=== PATIENT | male | born 2000 | race Two or more races ===

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

== ENCOUNTER → 2020-04-19 | Outpatient (CLI) | payer OTHER | END | disposition home or self-care (01) | LOC: LABWHC1 12:42 | PROVIDERS: ATTEND Family Medicine | DX: R05 Cough (principal); R06.02 Shortness of breath | CPT/HCPCS: U0003; C9803 ==

== ENCOUNTER → 2020-05-16 | Outpatient (CLI) | payer OTHER | END | disposition home or self-care (01) | LOC: LABWHC1 13:14 | PROVIDERS: ATTEND Clinical Nurse Specialist Psychiatric/Mental Health | DX: F31.12 Bipolar disorder, current episode manic without psychotic features, moderate (principal) | CPT/HCPCS: 36415; 80164 ==

== ENCOUNTER 2020-12-16 18:16 | Inpatient (IN) | payer OTHER ==
[2020-12-16] MEDS ORDERED: SODIUM CHLORIDE 0.9% 500 ML 500 ML IV ONE (18:32)
[2020-12-16] MEDS ORDERED: ACETAMINOPHEN TAB 500 MG TAB PO STA (18:32)
[2020-12-16] MEDS: IBUPROFEN 800 MG TAB PO STA ×2 (18:43→18:52)
--- NOTE | 2020-12-16 18:43 | ED ---
Altered Mental Status HPI - General Chief Complaint: Altered Mental Status Stated Complaint: AMS Time Seen by Provider: 12/16/20 18:20 Source: patient, RN notes reviewed Mode of arrival: EMS Limitations: no limitations - History of Present Illness Initial Comments: 20-year-old male patient presents to the emergency room via EMS. Patient had driven himself to his primary care doctor's office to get Covid test for fever and was found to be confused with altered mentation and a fever of 105. EMS was called. Patient states that he does live at home but then starts to talking about horses running around. Patient states he has ADHD and starts talking about Obama. Patient with flight of ideas, but does follow commands. Patient denies any pain, denies head injury. Patient morbidly obese able to move all extremities. Past medical history of bipolar, ADHD, high risk sexual behavior on truvada, asthma. MD Complaint: altered mental status Associated Symptoms: other (Patient very confused and not answering questions appropriately) Treatments Prior to Arrival: IV fluid - Related Data Home Medications Medication Instructions Recorded Confirmed Albuterol Sulfate [Proair Hfa] 1 - 2 puff INHALATION RT-Q4H PRN 12/16/20 12/16/20 Emtricitabine/Tenofovir (Tdf) 1 tab PO DAILY 12/16/20 12/16/20 [Truvada 200 mg-300 mg Tablet] Allergies Allergy/AdvReac Type Severity Reaction Status Date / Time No Known Allergies Allergy Verified 12/16/20 18:32 Review of Systems ROS Statement: Those systems with pertinent positive or pertinent negative responses have been documented in the HPI. ROS Other: All systems not noted in ROS Statement are negative. Past Medical History Past Medical History: No Reported History Past Surgical History: No Surgical Hx Reported Past Psychological History: ADD/ADHD, Bipolar Smoking Status: Current every day smoker Past Alcohol Use History: None Reported Past Drug Use History: Marijuana General Exam Limitations: no limitations, altered mental status General appearance: alert, obese Head exam: Present: atraumatic, normocephalic, normal inspection Eye exam: Present: normal appearance (glasses), PERRL, EOMI. Absent: scleral icterus, conjunctival injection, periorbital swelling ENT exam: Present: normal exam, mucous membranes dry Neck exam: Present: normal inspection, full ROM. Absent: tenderness, meningismus, lymphadenopathy, thyromegaly Respiratory exam: Present: wheezes, decreased breath sounds (Likely due to body habitus). Absent: respiratory distress, chest wall tenderness, accessory muscle use Cardiovascular Exam: Present: tachycardia. Absent: JVD GI/Abdominal exam: Present: soft, normal bowel sounds. Absent: distended, tenderness, guarding, rebound, rigid Extremities exam: Present: normal inspection, full ROM, normal capillary refill. Absent: tenderness, pedal edema, joint swelling, calf tenderness Back exam: Present: normal inspection. Absent: tenderness, CVA tenderness (R), CVA tenderness (L) Neurological exam: Present: alert, CN II-XII intact, other Psychiatric exam: Present: manic Skin exam: Present: warm, dry, intact, normal color. Absent: rash, cyanosis, diaphoretic, erythema, petechiae, pallor, mottled Course Vital Signs 12/16/20 12/16/20 12/16/20 18:23 19:40 20:21 Temperature 105.2 F H 101.2 F H 98.8 F Pulse Rate 134 H 121 H Respiratory 34 H 18 Rate Blood Pressure 102/87 113/64 O2 Sat by Pulse 96 Oximetry 12/16/20 12/16/20 20:58 22:11 Temperature 98.6 F Pulse Rate 107 H 102 H Respiratory 18 18 Rate Blood Pressure 99/66 100/54 O2 Sat by Pulse 96 95 Oximetry - Reevaluation(s) Reevaluation #1: 12/16/20 19:06 Patient still talking with tangential thoughts, and has question he will answer sometimes inappropriately patient able to provide his phone number and address and has tangential thinking sister starting about horses. IV established blood cultures drawn blood glucose 97. [facility] [place] reviewed showing patient has a history of major depression, bipolar disorder, asthma, morbid obesity, and high risks bisexual behavior. Patient on medications of her past pain, trazodone, and they have, Truvada, Tegretol, and albuterol. It appears per medical record that patient arrived at that facility with an exposure to COVID-19, fever and cough. On December 12 patient was seen at the same facility for bipolar disorder. Time: 19:06 Reevaluation #2: 12/16/20 19:32 Patient continues to talk to himself in room, not making any sense. Heart rate down to 128, cooling measures are in place, cool packs to groin and bilateral axillas. Time: 19:32 Reevaluation #3: 12/16/20 19:42 temp down to 101.2, pH continues to talk inappropriately "you 1977 marco a mendieta" Reevaluation #4: 12/16/20 20:32 Patient's temp down to 94. States that his symptoms started December 12. Explained to patient that we would give him monoclonal antibodies, patient states "your going to cure me of Covid?" Explained it may help his symptoms. Then patient became tearful asking if they are going to stab him. Christie CARRASQUILLO spoke with patient's father who states the patient has been having increasing psychosis and they've been trying to get him into [facility] and have been unsuccessful. States that his psychotic symptoms have been worsening. Medical Decision Making - Medical Decision Making Blood cell count 3, lymphocytes 0.7, lactic acid 1.2, hemoglobin and hematocrit are 12 and 34 respectively. Elevation in AST 140 and ALT 66 elevation noted in the past. Patient is Covid positive. Chest x-ray shows bilateral perihilar infiltrates. Temperature is down to 98.4. Patient will receive monoclonal antibodies and be observed to Dr. braun with psychiatric consult for acute psychosis. ED FOREIGN Castro spoke with patient's father who states that patient has been having increased psychosis and they're trying to get him admitted to [facility]. - Lab Data Result diagrams: 12/16/20 18:37 12/16/20 18:37 Lab Results 12/16/20 12/16/20 12/16/20 Range/Units 18:37 18:37 18:37 WBC 3.0 L (3.8-10.6) k/uL RBC 4.15 L (4.30-5.90) m/uL Hgb 12.3 L (13.0-17.5) gm/dL Hct 34.6 L (39.0-53.0) % MCV 83.5 (80.0-100.0) fL MCH 29.7 (25.0-35.0) pg MCHC 35.5 (31.0-37.0) g/dL RDW 13.9 (11.5-15.5) % Plt Count 127 L (150-450) k/uL MPV 7.6 Neutrophils % 71 % Lymphocytes % 23 % Monocytes % 4 % Eosinophils % 1 % Basophils % 0 % Neutrophils # 2.1 (1.3-7.7) k/uL Lymphocytes # 0.7 L (1.0-4.8) k/uL Monocytes # 0.1 (0-1.0) k/uL Eosinophils # 0.0 (0-0.7) k/uL Basophils # 0.0 (0-0.2) k/uL PT 11.4 (9.0-12.0) sec INR 1.1 (<1.2) APTT 24.0 (22.0-30.0) sec Sodium 132 L (137-145) mmol/L Potassium 3.4 L (3.5-5.1) mmol/L Chloride 100 (98-107) mmol/L Carbon Dioxide 24 (22-30) mmol/L Anion Gap 8 mmol/L BUN 10 (9-20) mg/dL Creatinine 0.69 (0.66-1.25) mg/dL Est GFR (CKD-EPI)AfAm >90 (>60 ml/min/1.73 sqM) Est GFR (CKD-EPI)NonAf >90 (>60 ml/min/1.73 sqM) Glucose 97 (74-99) mg/dL POC Glucose (mg/dL) (75-99) mg/dL POC Glu Pizza Baker ID Plasma Lactic Acid Dao (0.7-2.0) mmol/L Calcium 7.6 L (8.4-10.2) mg/dL Total Bilirubin 0.7 (0.2-1.3) mg/dL AST 140 H (17-59) U/L ALT 66 H (4-49) U/L Alkaline Phosphatase 59 (38-126) U/L Creatine Kinase (55-170) U/L Troponin I (0.000-0.034) ng/mL Total Protein 5.8 L (6.3-8.2) g/dL Albumin 3.3 L (3.5-5.0) g/dL Carbamazepine ug/mL Influenza Type A (PCR) (Not Detectd) Influenza Type B (PCR) (Not Detectd) RSV (PCR) (Not Detectd) SARS-CoV-2 (PCR) (Not Detectd) 12/16/20 12/16/2012/16/21 Range/Units 18:37 18:45 19:01 WBC (3.8-10.6) k/uL RBC (4.30-5.90) m/uL Hgb (13.0-17.5) gm/dL Hct (39.0-53.0) % MCV (80.0-100.0) fL MCH (25.0-35.0) pg MCHC (31.0-37.0) g/dL RDW (11.5-15.5) % Plt Count (150-450) k/uL MPV Neutrophils % % Lymphocytes % % Monocytes % % Eosinophils % % Basophils % % Neutrophils # (1.3-7.7) k/uL Lymphocytes # (1.0-4.8) k/uL Monocytes # (0-1.0) k/uL Eosinophils # (0-0.7) k/uL Basophils # (0-0.2) k/uL PT (9.0-12.0) sec INR (<1.2) APTT (22.0-30.0) sec Sodium (137-145) mmol/L Potassium (3.5-5.1) mmol/L Chloride (98-107) mmol/L Carbon Dioxide (22-30) mmol/L Anion Gap mmol/L BUN (9-20) mg/dL Creatinine (0.66-1.25) mg/dL Est GFR (CKD-EPI)AfAm (>60 ml/min/1.73 sqM) Est GFR (CKD-EPI)NonAf (>60 ml/min/1.73 sqM) Glucose (74-99) mg/dL POC Glucose (mg/dL) 97 (75-99) mg/dL POC Glu Pizza Baker ID Engel Britni Plasma Lactic Acid Dao 1.2 (0.7-2.0) mmol/L Calcium (8.4-10.2) mg/dL Total Bilirubin (0.2-1.3) mg/dL AST (17-59) U/L ALT (4-49) U/L Alkaline Phosphatase (38-126) U/L Creatine Kinase (55-170) U/L Troponin I <0.012 (0.000-0.034) ng/mL Total Protein (6.3-8.2) g/dL Albumin (3.5-5.0) g/dL Carbamazepine ug/mL Influenza Type A (PCR) (Not Detectd) Influenza Type B (PCR) (Not Detectd) RSV (PCR) (Not Detectd) SARS-CoV-2 (PCR) (Not Detectd) 12/16/20 12/16/20 Range/Units 19:04 19:34 WBC (3.8-10.6) k/uL RBC (4.30-5.90) m/uL Hgb (13.0-17.5) gm/dL Hct (39.0-53.0) % MCV (80.0-100.0) fL MCH (25.0-35.0) pg MCHC (31.0-37.0) g/dL RDW (11.5-15.5) % Plt Count (150-450) k/uL MPV Neutrophils % % Lymphocytes % % Monocytes % % Eosinophils % % Basophils % % Neutrophils # (1.3-7.7) k/uL Lymphocytes # (1.0-4.8) k/uL Monocytes # (0-1.0) k/uL Eosinophils # (0-0.7) k/uL Basophils # (0-0.2) k/uL PT (9.0-12.0) sec INR (<1.2) APTT (22.0-30.0) sec Sodium (137-145) mmol/L Potassium (3.5-5.1) mmol/L Chloride (98-107) mmol/L Carbon Dioxide (22-30) mmol/L Anion Gap mmol/L BUN (9-20) mg/dL Creatinine (0.66-1.25) mg/dL Est GFR (CKD-EPI)AfAm (>60 ml/min/1.73 sqM) Est GFR (CKD-EPI)NonAf (>60 ml/min/1.73 sqM) Glucose (74-99) mg/dL POC Glucose (mg/dL) (75-99) mg/dL POC Glu Pizza Baker ID Plasma Lactic Acid Dao (0.7-2.0) mmol/L Calcium (8.4-10.2) mg/dL Total Bilirubin (0.2-1.3) mg/dL AST (17-59) U/L ALT (4-49) U/L Alkaline Phosphatase (38-126) U/L Creatine Kinase (55-170) U/L Troponin I (0.000-0.034) ng/mL Total Protein (6.3-8.2) g/dL Albumin (3.5-5.0) g/dL Carbamazepine 10.2 ug/mL Influenza Type A (PCR) Not Detected (Not Detectd) Influenza Type B (PCR) Not Detected (Not Detectd) RSV (PCR) Not Detected (Not Detectd) SARS-CoV-2 (PCR) Detected A (Not Detectd) - EKG Data EKG shows normal: sinus rhythm, intervals (Ventricular rate of 128, CO interval 0.15, QRS of 0.84, QTC 0.414) Rate: tachycardia When compared to previous EKG there are: previous EKG unavailable Critical Care Time Critical Care Time: Yes Disposition Clinical Impression: COVID-19 Disposition: ADMITTED IP TO THIS [facility] Condition: Fair Is patient prescribed a controlled substance at d/c from ED?: No Decision Date: 12/16/20 Decision Time: 23:05
[2020-12-16 18:44] LABS: Basophils % (A) 0 %; Eosinophils % (A) 1 %; HCT 34.6 % (39.0-53.0); HGB 12.3 gm/dL (13.0-17.5); Lymphocytes # (A) 0.7 k/uL (1.0-4.8); Lymphocytes % (A) 23 %; MCH 29.7 pg (25.0-35.0); MCHC 35.5 g/dL (31.0-37.0); MCV 83.5 fL (80.0-100.0); Mean Platelet Volume 7.6; Monocytes # (A) 0.1 k/uL (0-1.0); Monocytes % (A) 4 %; Neutrophils # (A) 2.1 k/uL (1.3-7.7); Neutrophils % (A) 71 %; Platelet Count 127 k/uL (150-450); RBC 4.15 m/uL (4.30-5.90); RDW 13.9 % (11.5-15.5)
[2020-12-16] MEDS ORDERED: KETOROLAC 15 MG/ML 1 ML VIAL IVP STA (18:47)
[2020-12-16 18:57] LABS: INR 1.1 (<1.2); Prothrombin Time 11.4 sec (9.0-12.0)
[2020-12-16 18:58] LABS: ALT 66 U/L (4-49); AST 140 U/L (17-59); African American GFR (CKD) >90 (>60 ml/min/1.73 sqM); Albumin 3.3 g/dL (3.5-5.0); Alkaline Phosphatase 59 U/L (38-126); Anion Gap 8 mmol/L; Blood Urea Nitrogen 10 mg/dL (9-20); Calcium 7.6 mg/dL (8.4-10.2); Carbon Dioxide 24 mmol/L (22-30); Chloride 100 mmol/L (98-107); Glucose 97 mg/dL (74-99); Non-African American GFR(CKD) >90 (>60 ml/min/1.73 sqM); Potassium 3.4 mmol/L (3.5-5.1); Sodium 132 mmol/L (137-145); Total Bilirubin 0.7 mg/dL (0.2-1.3); Total Protein 5.8 g/dL (6.3-8.2)
[2020-12-16] MEDS ORDERED: IBUPROFEN IV 800 MG in SODIUM CHLORIDE 0.9% 250 ML IV ONE (18:58)
[2020-12-16] MEDS ORDERED: ONDANSETRON 4 MG/2 ML VIAL IVP STA (18:59)
[2020-12-16 19:07] LABS: Glucose,Whole Blood 97 mg/dL (75-99)
--- NOTE | 2020-12-16 20:10 | XR ---
EXAMINATION TYPE: XR chest 1V DATE OF EXAM: 12/16/2020 COMPARISON: NONE HISTORY: Altered mental status and fever. TECHNIQUE: Single frontal view of the chest is obtained. FINDINGS: There is bilateral moderate perihilar patchy opacities. No pleural effusion, or pneumothor ax seen. The cardiac silhouette size is within normal limits. The osseous structures are intact. IMPRESSION: Bilateral infiltrates.
[2020-12-16] MEDS ORDERED: IBUPROFEN 400 MG TAB PO PRN (20:36)
[2020-12-16] MEDS ORDERED: NALOXONE 0.4 MG/ML 1 ML VIAL IV PRN (20:36)
[2020-12-16] MEDS ORDERED: BAMLANIVIMAB (EUA) 700 MG, ETESEVIMAB (EUA) 1,400 MG in SODIUM CHLORIDE 0.9% 50 ML IVPB ONE (21:30)
[2020-12-16] MEDS ORDERED: SODIUM CHLORIDE 0.9% 50 ML IVPB ONE (22:00)
[2020-12-17] MEDS ORDERED: ONDANSETRON 4 MG/2 ML VIAL IVP PRN (03:52)
[2020-12-17] MEDS: ACETAMINOPHEN TAB 325 MG TAB PO PRN ×3 (05:46→18:18)
[2020-12-17] MEDS ORDERED: POTASSIUM CHLORIDE ER 20 MEQ TAB.ER PO STA (08:41)
[2020-12-17] MEDS ORDERED: Potassium Replacement Protocol 1 EACH MISC MISCELLANE PRN (08:42)
[2020-12-17 08:45] LABS: Appearance,Urine Clear (Clear); Bilirubin,Urine 1+ (Negative); Blood,Urine Large (Negative); Color,Urine Yellow; Glucose,Urine (UA) Negative (Negative); Ketones,Urine 2+ (Negative); Leukocyte Esterase,Urine Negative (Negative); Mucus,Urine Rare /hpf; Nitrite,Urine Negative (Negative); PH, Urine 6.5 (5.0-8.0); Protein,Urine 2+ (Negative); RBC,Urine <1 /hpf (0-5); Specific Gravity,Urine 1.024 (1.001-1.035); Squamous Epithelial Cell,Urine <1 /hpf (0-4); WBC,Urine 2 /hpf (0-5)
[2020-12-17 08:49] LABS: Amphetamine Screen,Urine Not Detected (NotDetected); Barbiturate Screen,Urine Not Detected (NotDetected); Benzodiazepines Screen,Urine Not Detected (NotDetected); Cocaine Screen,Urine Not Detected (NotDetected); Methadone Screen, Urine Not Detected (NotDetected); Opiate Screen,Urine Not Detected (NotDetected); Oxycodone Screen, Urine Not Detected (NotDetected); Phencyclidine Screen,Urine Not Detected (NotDetected); Tricyclic Antidepressant,Urine Not Detected (NotDetected); Urn Cannabinoid Scrn Detected (NotDetected)
[2020-12-17] MEDS: FAMOTIDINE 20 MG TAB PO SCH ×2 (09:24→20:02)
[2020-12-17] MEDS: ASCORBIC ACID 500 MG TAB PO SCH ×2 (09:24→20:02)
[2020-12-17] MEDS: SODIUM CHLORIDE 0.9% 1,000 ML IV SCH ×2 (09:24→20:03)
[2020-12-17] MEDS: ENOXAPARIN 40 MG/0.4 ML SYRINGE SQ SCH (09:24)
[2020-12-17] MEDS: ZINC SULFATE 220 MG CAP PO SCH (09:24)
[2020-12-17] MEDS ORDERED: ALBUTEROL HFA INHALER INHALATION PRN (09:27)
--- NOTE | 2020-12-17 09:40 | P.HPIM ---
History of Present Illness 20-year-old male was admitted because of acute psychosis. Patient appears to have significant tangentiality patient may have schizophrenia or schizoaffective disorder. Patient the has seen primary care physician yesterday and had covid test because of the fever which was positive patient was also having diarrhea. Patient easily loses train of thought and denied a very good historian patient says his diarrhea is gone now and only lasted for a day. I'm unable to get any further history. Patient is acutely psychotic apart from that patient doesn't have any other delirium at this time. Patient is not requiring any oxygen. Patient is on Truvada, if he is to be on preexposure prophylaxis. Patient is bit hyponatremic and hypokalemic Review of Systems Rest of the review of systems is either unable to obtain negative. Past Medical History Past Medical History: No Reported History History of Any Multi-Drug Resistant Organisms: None Reported Past Surgical History: No Surgical Hx Reported Past Anesthesia/Blood Transfusion Reactions: No Reported Reaction Past Psychological History: ADD/ADHD, Bipolar, Schizophrenia Smoking Status: Current every day smoker Past Alcohol Use History: None Reported Past Drug Use History: Marijuana Medications and Allergies Home Medications Medication Instructions Recorded Confirmed Type Albuterol Sulfate [Proair Hfa] 1 - 2 puff INHALATION RT-Q4H PRN 12/16/20 12/16/20 History Emtricitabine/Tenofovir (Tdf) 1 tab PO DAILY 12/16/20 12/16/20 History [Truvada 200 mg-300 mg Tablet] Allergies Allergy/AdvReac Type Severity Reaction Status Date / Time No Known Allergies Allergy Verified 12/16/20 18:32 Physical Exam Vitals: Vital Signs Temp Pulse Pulse Resp BP BP Pulse Ox 12/17/20 05:51 98.5 F 124 H 119/70 95 12/17/20 02:59 98.9 F 124 H 19 93/54 94 L 12/17/20 00:08 22 12/16/20 23:51 98.7 F 111 H 20 112/66 98 12/16/20 23:21 98.7 F 108 H 18 98/63 96 12/16/20 22:11 98.6 F 102 H 18 100/54 95 12/16/20 20:58 107 H 18 99/66 96 12/16/20 20:21 98.8 F 12/16/20 19:40 101.2 F H 121 H 18 113/64 12/16/20 18:23 105.2 F H 134 H 34 H 102/87 96 Intake and Output 12/16/20 12/17/20 12/17/20 22:59 06:59 14:59 Other: # Voids 3 # Bowel Movements 3 Weight 180.983 kg 180.983 kg PHYSICAL EXAMINATION: GENERAL: The patient is alert and oriented and gentian felecia he loses train of clot, not in any acute distress. Well developed, well nourished. HEENT: Pupils are round and equally reacting to light. EOMI. No scleral icterus. No conjunctival pallor. Normocephalic, atraumatic. No pharyngeal erythema. No thyromegaly. CARDIOVASCULAR: S1 and S2 present. No murmurs, rubs, or gallops. PULMONARY: Chest is clear to auscultation, no wheezing or crackles. ABDOMEN: Soft, nontender, nondistended, normoactive bowel sounds. No palpable organomegaly. MUSCULOSKELETAL: No joint swelling or deformity. EXTREMITIES: No cyanosis, clubbing, or pedal edema. NEUROLOGICAL: Gross neurological examination did not reveal any focal deficits. SKIN: No rashes. Results CBC & Chem 7: 12/16/20 18:37 12/16/20 18:37 Labs: Abnormal Lab Results - Last 24 Hours (Table) 12/16/20 12/16/20 12/16/20 Range/Units 18:37 18:37 19:04 WBC 3.0 L (3.8-10.6) k/uL RBC 4.15 L (4.30-5.90) m/uL Hgb 12.3 L (13.0-17.5) gm/dL Hct 34.6 L (39.0-53.0) % Plt Count 127 L (150-450) k/uL Lymphocytes # 0.7 L (1.0-4.8) k/uL Sodium 132 L (137-145) mmol/L Potassium 3.4 L (3.5-5.1) mmol/L Calcium 7.6 L (8.4-10.2) mg/dL AST 140 H (17-59) U/L ALT 66 H (4-49) U/L Total Protein 5.8 L (6.3-8.2) g/dL Albumin 3.3 L (3.5-5.0) g/dL Urine Protein (Negative) Urine Ketones (Negative) Urine Blood (Negative) Urine Bilirubin (Negative) Urine Mucus (None) /hpf U Marijuana (THC) Screen (NotDetected) SARS-CoV-2 (PCR) Detected A (Not Detectd) 12/17/20 Range/Units 08:20 WBC (3.8-10.6) k/uL RBC (4.30-5.90) m/uL Hgb (13.0-17.5) gm/dL Hct (39.0-53.0) % Plt Count (150-450) k/uL Lymphocytes # (1.0-4.8) k/uL Sodium (137-145) mmol/L Potassium (3.5-5.1) mmol/L Calcium (8.4-10.2) mg/dL AST (17-59) U/L ALT (4-49) U/L Total Protein (6.3-8.2) g/dL Albumin (3.5-5.0) g/dL Urine Protein 2+ H (Negative) Urine Ketones 2+ H (Negative) Urine Blood Large H (Negative) Urine Bilirubin 1+ H (Negative) Urine Mucus Rare H (None) /hpf U Marijuana (THC) Screen Detected H (NotDetected) SARS-CoV-2 (PCR) (Not Detectd) Assessment and Plan Plan: -Covid 19 infection and pneumonia: Patient is not requiring any oxygen at this time patient will restart" S patient did receive multiple antibody infusion -Hypovolemic hyponatremia patient was started on IV fluids -Hypokalemia potassium will be replaced -Acute psychosis: Patient may need the admission to psychiatry floor psychiatry was consulted. Patient may need to be transferred out of town because of his score grade and admission to psychiatric floor although patient is medically stable to go to psychiatric floor. -Nicotine use and marijuana use: Patient is not appropriate for counseling now. DVT prophylaxis Lovenox.
[2020-12-17] MEDS: EMTRICITABINE/TENOFOVIR 200MG/300MG PO SCH (10:57)
--- NOTE | 2020-12-17 18:25 | CONS ---
CONSULTATION DATE OF SERVICE: 12/17/2020 PURPOSE FOR CONSULTATION: Evaluate for psychosis. The patient is COVID-positive. HISTORY OF PRESENTING ILLNESS: The patient is a 20-year-old male. He had driven himself to his primary care doctor's office for a COVID test. He was found to be confused and had altered mental status. He also had a fever of 105. EMS was called and he was admitted to the medical floor for a fever and altered mental status. Patient has long-term psychiatric issues and has been diagnosed with bipolar disorder. [facility] have medication records going back to May 2014. Noted that he was seen for an assessment on 11/07/2020 at [facility] following a hospitalization at another [facility] facility. The [facility] records note that he had not been seen at [facility] since September 2018. He was discharged 10/23/2020 after a 9- day stay due to a manic episode. He presented on November 06 as continuing to show manic symptoms. He was hyperactive. He had rapid speech, impulsive behavior and disorganized thoughts. He was sleeping poorly. Discharge medications from his recent psychiatric admission included Tegretol 200 mg 3 times a day and Prolixin 5 mg 3 times a day. The patient prior to admission and since that admission has been having spending sprees. He describes addiction to the Internet. He continues with poor sleep, disorganized and pressured thinking. He is described as having flight of ideas and loose association. He is noted to have excessive energy. Communications are limited because of his disorganized thinking. Trazodone was added to his medical regimen for sleep. He was seen in followup on 11/20/2020. He was continuing to show manic symptoms. Prolixin was discontinued. He was started on Invega 6 mg a day. Tegretol was increased to 600 mg twice a day. Trazodone was increased to 150 mg a day. He was again seen in followup 12/04/2020. At that time it was noted that he had ongoing use of alcohol and daily use of marijuana. He was continuing to show manic symptoms, including decreased need for sleep, excessive energy, spending sprees, pressured speech and disorganized thoughts. His Invega was increased to 9 mg a day. Trazodone was increased to 200 mg a day. The patient apparently lives at home with his parents. 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 [facility] records note that in the past he had been treated with lithium and Risperdal as other psychotropic medications. Urine drug screen is positive for marijuana. MENTAL STATUS EXAMINATION: Patient was sitting up in bed. At one point in the interview he got up and tended to pace a little. He gave fair eye contact at best. He was quite restless. He would look about the room and did not seem to focus his attention on anything in particular. He would respond to some questions with brief answers. Typically he would then start rambling and make statements that seemed quite random and disorganized. He would talk in phrases and jump from one subject to another without completing sentences. He had pressured speech and flight of ideas. His thoughts for the most part were disorganized. His affect was intense. His mood was elevated. He seemed moderately distressed. It was difficult to assess for indications of hallucinations or delusional thoughts. He showed significant disorganized thoughts. It was difficult to assess for thoughts of harm to self or others. In response to orientation questions, he first said it was November, then with some coaxing he was able to say was December. He could say it was 2020. He said the day of the week was Wednesday. When I asked where he was, he was able to say he was in the hospital. He could say it was [place]. He initially said [place]. With some coaxing he was able to say [place]. Beyond that, he was not able to answer other formal cognitive questions. ASSESSMENT: This 20-year-old male is diagnosed with bipolar disorder, manic. He was admitted with fever and is COVID-positive. I will start the patient on Zyprexa 10 mg 3 times a day. The indication for Zyprexa is bipolar jennifer. There are longer-term issues relating to Zyprexa, including appetite increase and complications with metabolics and movement disorder, though those are not immediate issues that are likely to impact his treatment currently. Given his age of 20, he is at significant risk for EPS symptoms from alternative medications for bipolar disorder. He had been on apparent therapeutic doses of Invega and Tegretol without apparent benefit. A consideration for his current treatment issues would be restarting lithium. I did make a telephone contact to [facility] and they indicated they would pass on my cellphone number to Rosmery Otoole DNP, who is his prescribing practitioner at [facility]. So far I have not received a call back. The patient would be appropriate for admission to a psychiatric unit; given his COVID-positive status, we would need to look for appropriate units. I will continue to follow. RAUL / DANTE: [id number] / MTDD
[2020-12-17] MEDS ORDERED: HALOPERIDOL LACTATE 5 MG/ML 1 ML VIAL IVP ONE (22:03)
[2020-12-18] MEDS: ACETAMINOPHEN TAB 325 MG TAB PO PRN (01:56)
[2020-12-18] MEDS: SODIUM CHLORIDE 0.9% 1,000 ML IV SCH ×2 (05:25→15:53)
[2020-12-18] MEDS: FAMOTIDINE 20 MG TAB PO SCH ×2 (07:24→20:23)
[2020-12-18] MEDS: ENOXAPARIN 40 MG/0.4 ML SYRINGE SQ SCH (07:24)
[2020-12-18] MEDS: ASCORBIC ACID 500 MG TAB PO SCH ×2 (07:24→20:23)
[2020-12-18] MEDS: ZINC SULFATE 220 MG CAP PO SCH (07:24)
[2020-12-18] MEDS: EMTRICITABINE/TENOFOVIR 200MG/300MG PO SCH (07:25)
[2020-12-18 10:19] LABS: HCT 34.1 % (39.6-50.0); HGB 11.2 g/dL (13.0-17.0); MCH 28.7 pg (27.0-32.0); MCHC 32.8 g/dL (32.0-37.0); MCV 87.4 fL (80.0-97.0); Mean Platelet Volume 10.9 fL (9.5-12.2); Platelet Count 144 X 10*3/uL (140-440); RDW 15.1 % (11.5-14.5); WBC 3.09 X 10*3/uL (4.50-10.00)
--- NOTE | 2020-12-18 10:30 | P.PN ---
Subjective 20-year-old male was admitted because of acute psychosis. Patient appears to have significant tangentiality patient may have schizophrenia or schizoaffective disorder. Patient the has seen primary care physician yesterday and had covid test because of the fever which was positive patient was also having diarrhea. Patient easily loses train of thought and denied a very good historian patient says his diarrhea is gone now and only lasted for a day. I'm unable to get any further history. Patient is acutely psychotic apart from that patient doesn't have any other delirium at this time. Patient is not requiring any oxygen. Patient is on Truvada, if he is to be on preexposure prophylaxis. Patient is bit hyponatremic and hypokalemic. 12/18/2020 I do not have any labs available yet on this patient. At this point of time, his cherri or psychosis only issue. Patient was started on Zyprexa by psychiatry. Social work is working on transferred to psychiatric facility who can admit him with his CODE STATUS. Constitutional: Denied any fatigue denied any fever. Cardio vascular: denied any chest pain, palpitations Gastrointestinal denied any nausea vomiting Pulmonary: Denied any shortness of breath cough Neurologic denied any new focal deficits Patient is not a reliable historian because of his psychosis/Cherri All inpatient medications were reviewed and appropriate changes in these medications as dictated in the interval history and assessment and plan. Objective - Vital Signs Vital signs: Vital Signs Temp 98.4 F 12/18/20 08:00 Pulse 114 H 12/18/20 08:00 Resp 18 12/18/20 08:00 BP 121/84 12/18/20 08:00 Pulse Ox 92 L 12/18/20 08:00 Intake & Output 12/17/20 12/18/20 12/18/20 18:59 06:59 18:59 Other: # Voids 4 2 # Bowel Movements 2 - Exam PHYSICAL EXAMINATION: GENERAL: The patient is alert and oriented and gentian felecia he loses train of clot, not in any acute distress. Well developed, well nourished. HEENT: Pupils are round and equally reacting to light. EOMI. No scleral icterus. No conjunctival pallor. Normocephalic, atraumatic. No pharyngeal erythema. No thyromegaly. CARDIOVASCULAR: S1 and S2 present. No murmurs, rubs, or gallops. PULMONARY: Chest is clear to auscultation, no wheezing or crackles. ABDOMEN: Soft, nontender, nondistended, normoactive bowel sounds. No palpable organomegaly. MUSCULOSKELETAL: No joint swelling or deformity. EXTREMITIES: No cyanosis, clubbing, or pedal edema. NEUROLOGICAL: Gross neurological examination did not reveal any focal deficits. SKIN: No rashes. - Labs CBC & Chem 7: 12/18/20 06:17 12/16/20 18:37 Labs: Abnormal Lab Results - Last 24 Hours (Table) 12/18/20 Range/Units 06:17 WBC 3.09 L (4.50-10.00) X 10*3/uL RBC 3.90 L (4.40-5.60) X 10*6/uL Hgb 11.2 L (13.0-17.0) g/dL Hct 34.1 L (39.6-50.0) % RDW 15.1 H (11.5-14.5) % Microbiology - Last 24 Hours (Table) 12/16/20 18:37 Blood Culture - Preliminary Blood No Growth after 24 hours Assessment and Plan Plan: -Covid 19 infection and pneumonia: Patient is not requiring any oxygen at this time patient is on vitamins for Covid. Received monoclonal antibody infusion. Will not require any steroids. -Hypovolemic hyponatremia on IV fluids labs are not available from today -Hypokalemia potassium was replaced -Acute psychosis: Secondary to bipolar cherri and patient is presently on Zyprexa, pending disposition. -Nicotine use and marijuana use. DVT prophylaxis Lovenox.
[2020-12-18] MEDS: haloperidoL 5 MG TAB PO SCH ×2 (11:46→20:23)
[2020-12-18 15:10] LABS: African American GFR (CKD) 155.3 (60.0-200.0); Anion Gap 14.2 mmol/L (4.00-12.00); Calcium 7.5 mg/dL (8.7-10.3); Carbon Dioxide 18.8 mmol/L (21.6-31.8); Potassium 3.9 mmol/L (3.5-5.5)
[2020-12-18] MEDS ORDERED: LORazepam 2 MG/ML INJ IV PRN (19:44)
[2020-12-18] MEDS: LORazepam 2 MG/ML INJ IV PRN (20:23)
--- NOTE | 2020-12-18 20:44 | CONS ---
CONSULTATION DATE OF SERVICE: 12/18/2020 PURPOSE FOR CONSULTATION: Evaluate for psychosis. The patient is COVID-positive. INTERVAL HISTORY: The patient continues to do the same. He continues to show significant manic symptoms with disorganized thinking. He continues to talk in phrases that typically are more word salad and quite difficult to understand what he is trying to communicate. He has been generally cooperative. He shows an elevated mood and increased energy. He has flight of ideas, loose association and tangential thinking. I was able to talk to his [facility] prescriber today, Rachel . She notes that she has only had two contacts with the patient; he had not been seen for services going back to 2017, though he came back at the end of October for [facility] followup after a hospitalization at an another [facility] facility. He continues to be quite manic. Ms. indicated that he has not been very compliant with medications. There also has been significant concern with weight issues as a major health factor. When I talked to the patient, he did respond. It was noted that he would say some things that were somewhat with questions I asked, though not that he responded in any direct or meaningful way. It was noted that toward the end of the interview I asked him an orientation question. I asked if he could give me the days of the week in reverse order. He got very angry at that. He said, "I am not retarded and I won't talk any more." He swore. He spoke in quite a loud angry voice. He told me to leave his room. As I exited it was noted that he got a big smile on his face and that he said, "See, I'm doing okay and everything is good." He seemed to say that in quite a calm manner without any signs of distress. ASSESSMENT: I will continue the diagnosis of bipolar disorder, manic, with psychotic features. Given the problem he has had with medication compliance, rather than initiating Zyprexa I will start the patient on Haldol 10 mg twice a day. The advantage of Haldol will be for the option of initiating a long-acting injectable. I reviewed issues with Social Work in regard to potential transfer to a psychiatric unit that would accept COVID- positive patients. I will continue to follow. MMARTIEL / IJN: [id number] /
[2020-12-19] MEDS: LORazepam 2 MG/ML INJ IV PRN (00:16)
[2020-12-19] MEDS: SODIUM CHLORIDE 0.9% 1,000 ML IV SCH (05:16)
[2020-12-19] MEDS: LORazepam 1 MG TAB PO PRN ×3 (05:46→23:18)
[2020-12-19] MEDS: ZINC SULFATE 220 MG CAP PO SCH (07:46)
[2020-12-19] MEDS: ASCORBIC ACID 500 MG TAB PO SCH ×2 (07:46→20:30)
[2020-12-19] MEDS: EMTRICITABINE/TENOFOVIR 200MG/300MG PO SCH (07:47)
[2020-12-19] MEDS: FAMOTIDINE 20 MG TAB PO SCH ×2 (07:47→20:30)
[2020-12-19] MEDS: ENOXAPARIN 40 MG/0.4 ML SYRINGE SQ SCH (07:47)
[2020-12-19] MEDS: haloperidoL 5 MG TAB PO SCH ×2 (07:47→20:30)
--- NOTE | 2020-12-19 09:57 | P.PN ---
Subjective 20-year-old male was admitted because of acute psychosis. Patient appears to have significant tangentiality patient may have schizophrenia or schizoaffective disorder. Patient the has seen primary care physician yesterday and had covid test because of the fever which was positive patient was also having diarrhea. Patient easily loses train of thought and denied a very good historian patient says his diarrhea is gone now and only lasted for a day. I'm unable to get any further history. Patient is acutely psychotic apart from that patient doesn't have any other delirium at this time. Patient is not requiring any oxygen. Patient is on Truvada, if he is to be on preexposure prophylaxis. Patient is bit hyponatremic and hypokalemic. 12/18/2020 I do not have any labs available yet on this patient. At this point of time, his jennifer or psychosis only issue. Patient was started on Zyprexa by psychiatry. Social work is working on transferred to psychiatric facility who can admit him with his CODE STATUS. 12/19/2020 Patient the manic symptoms improved. But patient is requiring oxygen at this time. Patient has slight wheeze on exam patient does have history of asthma. Pulmonary will be consulted patient will not be started on suspect steroids it at patient will be started on inhaled steroids. Pulmonology to evaluate need fo r Remdesivir and possibly steroids. A she is still having occasional diarrhea. Continues to have cough. Constitutional: Denied any fatigue denied any fever. Cardio vascular: denied any chest pain, palpitations Gastrointestinal denied any nausea vomiting Pulmonary: Does have cough Neurologic denied any new focal deficits All inpatient medications were reviewed and appropriate changes in these m edications as dictated in the interval history and assessment and plan. Objective - Vital Signs Vital signs: Vital Signs Temp 98.4 F 12/19/20 05:49 Pulse 108 H 12/19/20 05:49 Resp 21 12/19/20 07:30 BP 114/67 12/19/20 05:49 Pulse Ox 90 L 12/19/20 05:49 Intake & Output 12/18/20 12/19/20 12/19/20 18:59 06:59 18:59 Intake Total 1500 Output Total 3 Balance 1497 Intake: Oral 1500 Output: Urine 3 Other: # Voids 3 # Bowel Movements 2 - Exam PHYSICAL EXAMINATION: GENERAL: The patient is alert and oriented and gentian felecia he loses train of clot, not in any acute distress. Well developed, well nourished. HEENT: Pupils are round and equally reacting to light. EOMI. No scleral icterus. No conjunctival pallor. Normocephalic, atraumatic. No pharyngeal erythema. No thyromegaly. CARDIOVASCULAR: S1 and S2 present. No murmurs, rubs, or gallops. PULMONARY: Good air entry into bilateral lung rogers with minimal expiratory wheezing on exam ABDOMEN: Soft, nontender, nondistended, normoactive bowel sounds. No palpable organomegaly. MUSCULOSKELETAL: No joint swelling or deformity. EXTREMITIES: No cyanosis, clubbing, or pedal edema. NEUROLOGICAL: Gross neurological examination did not reveal any focal deficits. SKIN: No rashes. - Labs CBC & Chem 7: 12/18/20 06:17 12/18/20 06:17 Labs: Abnormal Lab Results - Last 24 Hours (Table) 12/18/20 12/18/20 Range/Units 06:17 06:17 WBC 3.09 L (4.50-10.00) X 10*3/uL RBC 3.90 L (4.40-5.60) X 10*6/uL Hgb 11.2 L (13.0-17.0) g/dL Hct 34.1 L (39.6-50.0) % RDW 15.1 H (11.5-14.5) % Carbon Dioxide 18.8 L (21.6-31.8) mmol/L Anion Gap 14.20 H (4.00-12.00) mmol/L BUN 7.0 L (9.0-27.0) mg/dL BUN/Creatinine Ratio 10.00 L (12.00-20.00) Ratio Calcium 7.5 L (8.7-10.3) mg/dL Microbiology - Last 24 Hours (Table) 12/16/20 18:37 Blood Culture - Preliminary Blood No Growth after 48 hours Assessment and Plan Plan: -Covid 19 infection and pneumonia: Patient is not requiring any oxygen at this time patient is on vitamins for Covid. Received monoclonal antibody infusion. -Mild asthma exacerbation: Patient was started on inhaled steroids, pulmonary will be consulted. Patient may need a Remdesivir/and steroids. -Hypovolemic hyponatremia improved with IV fluids IV fluids will be discontinued as patient is pulling out his IVs -Mild diarrhea secondary to Covid 19 -Hypokalemia potassium was replaced -Acute psychosis: Secondary to bipolar jennifer , patient is presently on Haldol and Zyprexa with improved symptoms -Nicotine use and marijuana use. DVT prophylaxis Lovenox.
[2020-12-19] MEDS: guaiFENesin-DM 100-10MG/5ML 10 ML CUP PO PRN ×2 (10:03→23:18)
[2020-12-19] MEDS ORDERED: REMDESIVIR 200 MG in SODIUM CHLORIDE 0.9% 250 ML IVPB ONE (13:30)
[2020-12-19] MEDS: dexAMETHasone 2 MG TAB PO SCH (13:59)
--- NOTE | 2020-12-19 15:38 | P.CNPUL ---
History of Present Illness Consult date: 12/19/20 Reason for consult: dyspnea, hypoxemia, pneumonia History of present illness: 20-year-old male patient diagnosed having COVID-19 infection and during this current hospitalization the patient developed some mild hypoxemia for that reason a pulmonary a station was requested. The patient has long history of psychiatric disorder and the patient has history of schizophrenia schizoaffective disorder and the patient was having altered mentation psychosis. The patient was also having fever at a time of presentation and some limited diarrhea. Poor historian. Seem to be quite psychotic at time of admission and same time there will may be a acute manic symptoms and the patient was seen by psychiatry and a appropriate medication adjustments was done. Meanwhile, in terms of his COVID-19 related pneumonia, intermittent markers not been checked. The patient does not have a cough or sputum production. No chest that has been no wheezing. Diarrhea subsided. He is currently on Decadron 6 mg by mouth daily basis. On 2 L of oxygen, the patient's pulse ox was 90%. His chest x-ray was showing bilateral moderate perihilar patchy opacities. No evidence of the pleural effusion. Note is of any airspace disease. He is sitting comfortably o n a chair. Denies having any respiratory difficulties. He admits of obstructive sleep apnea and he apparently has a CPAP machine that he utilizes at home. The patient has been already vaccinated with COVID-19 vaccine and he got his first dose of Pfizer on 11/30/2020 Review of Systems ROS unobtainable: due to mental status Past Medical History Past Medical History: No Reported History Additional Past Medical History / Comment(s): Obesity, obstructive sleep apnea, History of Any Multi-Drug Resistant Organisms: None Reported Past Surgical History: No Surgical Hx Reported Past Anesthesia/Blood Transfusion Reactions: No Reported Reaction Past Psychological History: ADD/ADHD, Bipolar, Schizophrenia Smoking Status: Current every day smoker Past Alcohol Use History: None Reported Past Drug Use History: Marijuana Medications and Allergies Home Medications Medication Instructions Recorded Confirmed Type Albuterol Sulfate [Proair Hfa] 1 - 2 puff INHALATION RT-Q4H PRN 12/16/20 12/16/20 History Emtricitabine/Tenofovir (Tdf) 1 tab PO DAILY 12/16/20 12/16/20 History [Truvada 200 mg-300 mg Tablet] Paliperidone [Invega] 9 mg PO HS 12/17/20 12/17/20 History carBAMazepine [TEGretol XR] 600 mg PO Q12H 12/17/20 12/17/20 History traZODone HCL [Desyrel] 200 mg PO HS 12/17/20 12/17/20 History Allergies Allergy/AdvReac Type Severity Reaction Status Date / Time No Known Allergies Allergy Verified 12/17/20 09:55 Physical Exam Vitals: Vital Signs Temp Pulse Resp BP Pulse Ox 12/19/20 14:00 97.9 F 105 H 18 118/64 90 L 12/19/20 10:00 99.0 F 111 H 18 106/70 93 L 12/19/20 07:30 21 12/19/20 05:49 98.4 F 108 H 21 114/67 90 L 12/19/20 01:00 91 L 12/19/20 00:58 98.9 F 105 H 30 H 106/70 85 L 12/18/20 22:00 18 12/18/20 17:17 98.7 F 117 H 18 106/69 93 L Intake and Output 12/19/20 12/19/20 12/19/20 06:59 14:59 22:59 Intake Total 1500 Output Total 3 Balance 1497 Intake: Oral 1500 Output: Urine 3 Morbidly obese, calm comfortable, BMI of 62.5 Head exam was generally normal. There was no scleral icterus or corneal arcus. Mucous membranes were moist. Neck was supple and without jugular venous distension, thyromegaly, or carotid bruits. Carotids were easily palpable bilaterally. There was no adenopathy. The patient has significant crowding of the posterior oropharynx and the patient has a Mallampati class IV lung sounds are diminished bilaterally along with some few crackles in lung bases Cardiac exam revealed the PMI to be normally situated and sized. The rhythm was regular and no extrasystoles were noted during several minutes of auscultation. The first and second heart sounds were normal and physiologic splitting of the second heart sound was noted. There were no murmurs, rubs, clicks, or gallops. Abdominal exam revealed normal bowel sounds. The abdomen was soft, non-tender, and without masses, organomegaly, or appreciable enlargement of the abdominal aorta. extremities are slightly swollen. No cyanosis. No clubbing. Neurologically, the patient is awake and alert and the patient does not have any focal neurological deficit. Cranial nerves are essentially intact. psychiatrically the patient is confused, occasionally delusional and the patient has rashes speech. Please refer to the full psychiatric evaluation that was done by the psychiatrist. Results - Laboratory Findings CBC and BMP: 12/18/20 06:17 12/18/20 06:17 PT/INR, D-dimer PT 11.4 sec (9.0-12.0) 12/16/20 18:37 INR 1.1 (<1.2) 12/16/20 18:37 Abnormal lab findings: Abnormal Labs 12/16/20 12/16/20 12/16/20 18:37 18:37 19:04 WBC 3.0 L RBC 4.15 L Hgb 12.3 L Hct 34.6 L RDW Plt Count 127 L Lymphocytes # 0.7 L Sodium 132 L Potassium 3.4 L Carbon Dioxide Anion Gap BUN BUN/Creatinine Ratio Calcium 7.6 L AST 140 H ALT 66 H Total Protein 5.8 L Albumin 3.3 L Urine Protein Urine Ketones Urine Blood Urine Bilirubin Urine Mucus U Marijuana (THC) Screen SARS-CoV-2 (PCR) Detected A 12/17/20 12/18/20 12/18/20 08:20 06:17 06:17 WBC 3.09 L RBC 3.90 L Hgb 11.2 L Hct 34.1 L RDW 15.1 H Plt Count Lymphocytes # Sodium Potassium Carbon Dioxide 18.8 L Anion Gap 14.20 H BUN 7.0 L BUN/Creatinine Ratio 10.00 L Calcium 7.5 L AST ALT Total Protein Albumin Urine Protein 2+ H Urine Ketones 2+ H Urine Blood Large H Urine Bilirubin 1+ H Urine Mucus Rare H U Marijuana (THC) Screen Detected H SARS-CoV-2 (PCR) - Diagnostic Findings Chest x-ray: image reviewed Assessment and Plan Plan: 1 acute COVID-19 related pneumonia. Patient is or the vaccinated and the patient has received 1 dose of Merkle vaccine on 11/30/2020. He comes in for some altered mentation and fever and diarrhea and the patient is currently diagnosed having COVID-19 related pneumonia with but the pulmonary infiltrates and mild hypoxemia. 2 acute hypoxic respiratory failure currently on 2 L about 2 by nasal cannula 3 morbid obesity with a BMI 62.5 4 obstructive sleep apnea maintained on CPAP on outpatient basis 5 schizophrenia and schizoaffective disorder 6 acute manic symptoms with disorganized thinking and pressure speech and currently the patient on Haldol 7 history of marijuana use Plan Monitor the oxygenation and titrate the flow to maintain saturation above 90%. Currently on 2 L Decadron 6 mg by mouth daily Remdesivir per protocol Lovenox for DVT prophylaxis Check inflammatory markers at baseline Psychiatry to manage the patient's acute manic symptoms and schizophrenia Obtain a CPAP machine from home We'll continue to follow
--- NOTE | 2020-12-19 15:59 | CONS ---
CONSULTATION DATE OF SERVICE: 12/19/2020 PURPOSE FOR CONSULTATION: Evaluate for psychosis. The patient is COVID-positive. INTERVAL HISTORY: The patient has been doing fair. Staff indicate that overall his mental status seems to be improving. He is a little more reality-based. His thoughts seem clear. He continues to be fairly intense in his manner. He still has disjointed thoughts, though when he communicates he makes more sense in the things that he says. He still shows mood liability, though that also seems to be a little more contained. When I saw him today, for the most part he was fairly cooperative and interactive, though every once in a while he would seem to be veering towards some anger. Then he would pull himself back from that. When we talked about the option of transferring him to a psychiatric unit, initially he showed some intense reaction, though then he was more accepting of the idea. When I talked to him about diagnosis, he insisted that he has ADHD and not bipolar disorder, though he was in agreement when I reviewed records from [facility] showing that he had the hospitalization in October at [facility] and that mental health records going back to his followup from the hospitalization November 06 showed that he continued to have manic symptoms at that time and through the month of November. I talked to the patient about discharge planning and the likely referral for a psychiatric hospitalization prior to returning home. By the end of the interview the patient was not disagreeing with that and simply was asking what facilities would he be able to go to. ASSESSMENT: I will continue the diagnosis of bipolar affective disorder, jennifer, with psychosis. Patient is showing improvement. He tolerates Haldol. I would recommend when he is medically stable to have him be transferred to an appropriate psychiatric unit. I discussed with the patient that there would be coordination with [facility] as part of his treatment planning. MMARTIEL / IJN: [id number] /
[2020-12-19] MEDS: SYMBICORT 160-4.5 MCG INHALER INHALATION SCH (21:22)
[2020-12-20] MEDS: ZINC SULFATE 220 MG CAP PO SCH (07:40)
[2020-12-20] MEDS: dexAMETHasone 2 MG TAB PO SCH (07:40)
[2020-12-20] MEDS: ENOXAPARIN 40 MG/0.4 ML SYRINGE SQ SCH ×2 (07:40→20:29)
[2020-12-20] MEDS: ASCORBIC ACID 500 MG TAB PO SCH ×2 (07:40→20:30)
[2020-12-20] MEDS: FAMOTIDINE 20 MG TAB PO SCH ×2 (07:40→20:30)
[2020-12-20] MEDS: haloperidoL 5 MG TAB PO SCH ×2 (07:41→20:30)
[2020-12-20] MEDS: SYMBICORT 160-4.5 MCG INHALER INHALATION SCH ×2 (07:58→20:06)
--- NOTE | 2020-12-20 10:25 | CONS ---
CONSULTATION DATE OF SERVICE: 12/20/2020 PURPOSE OF CONSULTATION: Evaluate for psychosis. The patient is COVID positive. INTERVAL HISTORY: The patient has been doing fair. Overall he has been a little more stable in regard to his bipolar jennifer. He has not had trouble with the start of Haldol. He is showing a little more evenness in his mood, though he continues to be quite intense. He still has some disordered thinking, flight of ideas, pressured speech. His mood is elevated. When I saw him today, he had all his possessions packed in a plastic bag telling me that he was leaving today for [employer]. When I talk to social work, it was not clear what the disposition was, though he does need a referral to a psychiatric unit for further care as noted in the medical records. He had an admission to [facility] in the middle of October ever since he has been followed up through [facility] as of November 06. He has continued to show manic symptoms without any real reduction in jennifer. One aspect of initiated Haldol is the possibility that he could get started on a long-acting injectable. According to his prescriber at [facility], Rosmery Otoole NP, he had not been taking his medications consistently. At this point I would transfer to an appropriate psychiatric unit once he is medically cleared. Psychiatry does not need to continue followup at this time unless other issues arise and in that circumstance please re-contact Psychiatry. RAUL / DANTE: [id number] /
[2020-12-20] MEDS: EMTRICITABINE/TENOFOVIR 200MG/300MG PO SCH (11:26)
[2020-12-20 12:48] LABS: C Reactive Protein 16.1 mg/dL (0.0-0.8)
--- NOTE | 2020-12-20 13:09 | P.PN ---
Subjective 20-year-old male was admitted because of acute psychosis. Patient appears to have significant tangentiality patient may have schizophrenia or schizoaffective disorder. Patient the has seen primary care physician yesterday and had covid test because of the fever which was positive patient was also having diarrhea. Patient easily loses train of thought and denied a very good historian patient says his diarrhea is gone now and only lasted for a day. I'm unable to get any further history. Patient is acutely psychotic apart from that patient doesn't have any other delirium at this time. Patient is not requiring any oxygen. Patient is on Truvada, if he is to be on preexposure prophylaxis. Patient is bit hyponatremic and hypokalemic. 12/18/2020 I do not have any labs available yet on this patient. At this point of time, his jennifer or psychosis only issue. Patient was started on Zyprexa by psychiatry. Social work is working on transferred to psychiatric facility who can admit him with his CODE STATUS. 12/19/2020 Patient the manic symptoms improved. But patient is requiring oxygen at this time. Patient has slight wheeze on exam patient does have history of asthma. Pulmonary will be consulted patient will not be started on suspect steroids it at patient will be started on inhaled steroids. Pulmonology to evaluate need fo r Remdesivir and possibly steroids. A she is still having occasional diarrhea. Continues to have cough. 12/20/2020 Patient is not requiring oxygen today although his inflammatory markers that his d-dimer is elevated I'll change the Lovenox to twice a day. Patient was started on Decadron by pulmonary which will be continued. Patient to also received Remdesivir. Constitutional: Denied any fatigue denied any fever. Cardio vascular: denied any chest pain, palpitations Gastrointestinal denied any nausea vomiting Pulmonary: Does have cough Neurologic denied any new focal deficits All inpatient medications were reviewed and appropriate changes in these medications as dictated in the interval history and assessment and plan. Objective - Vital Signs Vital signs: Vital Signs Temp 98 F 12/20/20 10:00 Pulse 92 12/20/20 10:00 Resp 16 12/20/20 10:00 BP 132/88 12/20/20 10:00 Pulse Ox 92 L 12/20/20 10:00 Intake & Output 12/19/20 12/20/20 12/20/20 18:59 06:59 18:59 Intake Total 236 Balance 236 Intake: Oral 236 Other: # Voids 3 3 - Exam PHYSICAL EXAMINATION: GENERAL: The patient is alert and oriented and gentian felecia he loses train of clot, not in any acute distress. Well developed, well nourished. HEENT: Pupils are round and equally reacting to light. EOMI. No scleral icterus. No conjunctival pallor. Normocephalic, atraumatic. No pharyngeal erythema. No thyromegaly. CARDIOVASCULAR: S1 and S2 present. No murmurs, rubs, or gallops. PULMONARY: Good air entry into bilateral lung rogers, no wheezing on exam ABDOMEN: Soft, nontender, nondistended, normoactive bowel sounds. No palpable organomegaly. MUSCULOSKELETAL: No joint swelling or deformity. EXTREMITIES: No cyanosis, clubbing, or pedal edema. NEUROLOGICAL: Gross neurological examination did not reveal any focal deficits. SKIN: No rashes. - Labs CBC & Chem 7: 12/18/20 06:17 12/18/20 06:17 Labs: Abnormal Lab Results - Last 24 Hours (Table) 12/20/20 12/20/20 Range/Units 07:45 07:45 D-Dimer 6.63 H (<0.60) mg/L FEU Lactate Dehydrogenase 1031 H (120-246) U/L C-Reactive Protein 16.1 H (0.0-0.8) mg/dL Microbiology - Last 24 Hours (Table) 12/16/20 18:37 Blood Culture - Preliminary Blood No Growth after 72 hours Assessment and Plan Plan: -Covid 19 infection and pneumonia: Patient was hypoxic yesterday requiring oxygen because of which a pulmonary evaluated the patient and patient was started on Remdesivir and steroids. Patient is presently not requiring any oxygen -Mild asthma exacerbation: Improved now. Patient had elevated d-dimer because of which I'm increase the Lovenox to 40 twice a day -Hypovolemic hyponatremia improved -Mild diarrhea secondary to Covid 19 -Hypokalemia potassium was replaced -Acute psychosis: Secondary to bipolar jennifer , patient is presently on Haldol and Zyprexa with improved symptoms -Nicotine use and marijuana use. DVT prophylaxis Lovenox.
[2020-12-20] MEDS: REMDESIVIR 100 MG in SODIUM CHLORIDE 0.9% 250 ML IVPB SCH (13:53)
--- NOTE | 2020-12-20 16:37 | P.PN ---
Subjective Progress Note Date: 12/20/20 20-year-old male patient diagnosed having COVID-19 infection and during this cu rrent hospitalization the patient developed some mild hypoxemia for that reason a pulmonary a station was requested. The patient has long history of psychiatric disorder and the patient has history of schizophrenia schizoaffective disorder and the patient was having altered mentation psychosis. The patient was also having fever at a time of presentation and some limited diarrhea. Poor historian. Seem to be quite psychotic at time of admission and same time there will may be a acute manic symptoms and the patient was seen by psychiatry and a appropriate medication adjustments was done. Meanwhile, in terms of his COVID-19 related pneumonia, intermittent markers not been checked. The patient does not have a cough or sputum production. No chest that has been no wheezing. Diarrhea subsided. He is currently on Decadron 6 mg by mouth daily basis. On 2 L of oxygen, the patient's pulse ox was 90%. His chest x-ray was showing bilateral moderate perihilar patchy opacities. No evidence of the pleural effusion. Note is of any airspace disease. He is sitting comfortably on a chair. Denies having any respiratory difficulties. He admits of obstructive sleep apnea and he apparently has a CPAP machine that he utilizes at home. The patient has been already vaccinated with COVID-19 vaccine and he got his first dose of Pfizer on 11/30/2020 12/20/2020, the patient is on room air oxygen. His pulse ox is currently 95%. Hemodynamically stable. No respiratory difficulties. Ambulate in the room and is quite active. On his blood work, his white cell count is at 3. D-dimer is up to 6.6. His electrolytes are showing a component of non-anion gap metabolic acidosis with a bicarb of 18.8. His LDH is 1031. His CRP level is at 16.1. Urine toxin was positive for marijuana. The patient remains on Decadron 6 mg by mouth daily. His taken Lovenox 40 mg subcu every 12 hours based on the elevated d-dimer levels. He is also on Remdesivir day #2 of treatment. Objective - Vital Signs Vital signs: Vital Signs Temp 97.6 F 12/20/20 14:00 Pulse 93 12/20/20 14:00 Resp 16 12/20/20 14:00 BP 125/83 12/20/20 14:00 Pulse Ox 95 12/20/20 14:00 Intake & Output 12/19/20 12/20/20 12/20/20 18:59 06:59 18:59 Intake Total 472 Balance 472 Intake: Oral 472 Other: # Voids 3 3 - Exam Morbidly obese, calm comfortable, BMI of 62.5 Head exam was generally normal. There was no scleral icterus or corneal arcus. Mucous membranes were moist. Neck was supple and without jugular venous distension, thyromegaly, or carotid bruits. Carotids were easily palpable bilaterally. There was no adenopathy. The patient has significant crowding of the posterior oropharynx and the patient has a Mallampati class IV lung sounds are diminished bilaterally along with some few crackles in lung bases Cardiac exam revealed the PMI to be normally situated and sized. The rhythm was regular and no extrasystoles were noted during several minutes of auscultation. The first and second heart sounds were normal and physiologic splitting of the second heart sound was noted. There were no murmurs, rubs, clicks, or gallops. Abdominal exam revealed normal bowel sounds. The abdomen was soft, non-tender, and without masses, organomegaly, or appreciable enlargement of the abdominal aorta. extremities are slightly swollen. No cyanosis. No clubbing. Neurologically, the patient is awake and alert and the patient does not have any focal neurological deficit. Cranial nerves are essentially intact. psychiatrically the patient is confused, occasionally delusional and the patient has rashes speech. Please refer to the full psychiatric evaluation that was done by the psychiatrist. - Labs CBC & Chem 7: 12/18/20 06:17 12/18/20 06:17 Labs: Abnormal Lab Results - Last 24 Hours (Table) 12/20/20 12/20/20 Range/Units 07:45 07:45 D-Dimer 6.63 H (<0.60) mg/L FEU Lactate Dehydrogenase 1031 H (120-246) U/L C-Reactive Protein 16.1 H (0.0-0.8) mg/dL Microbiology - Last 24 Hours (Table) 12/16/20 18:37 Blood Culture - Preliminary Blood No Growth after 72 hours Assessment and Plan Plan: 1 acute COVID-19 related pneumonia. Patient is or the vaccinated and the patient has received 1 dose of [employer] vaccine on 11/30/2020. He comes in for some altered mentation and fever and diarrhea and the patient is currently diagnosed having COVID-19 related pneumonia with but the pulmonary infiltrates and mild hypoxemia. 2 acute hypoxic respiratory failure currently on 2 L about 2 by nasal cannula 3 morbid obesity with a BMI 62.5 4 obstructive sleep apnea maintained on CPAP on outpatient basis 5 schizophrenia and schizoaffective disorder 6 acute manic symptoms with disorganized thinking and pressure speech and currently the patient on Haldol 7 history of marijuana use Plan The patient is currently on room air oxygen Decadron 6 mg by mouth daily Remdesivir per protocol Lovenox for DVT prophylaxis Check inflammatory markers at baseline, LDH level is at 1031 and the CRP level is at 16.1. We'll continue to monitor those. Psychiatry to manage the patient's acute manic symptoms and schizophrenia Obtain a CPAP machine from home, the patient was able to provide his own CPAP machine and the patient is going to use his CPAP machine from home. We'll continue to follow
[2020-12-20] MEDS: LORazepam 1 MG TAB PO PRN (20:30)
[2020-12-21] MEDS: LORazepam 1 MG TAB PO PRN ×3 (03:22→20:46)
[2020-12-21] MEDS: SYMBICORT 160-4.5 MCG INHALER INHALATION SCH ×2 (09:03→20:53)
[2020-12-21] MEDS: EMTRICITABINE/TENOFOVIR 200MG/300MG PO SCH (09:09)
[2020-12-21] MEDS: dexAMETHasone 2 MG TAB PO SCH (09:14)
[2020-12-21] MEDS: haloperidoL 5 MG TAB PO SCH ×2 (09:14→20:46)
[2020-12-21] MEDS: ZINC SULFATE 220 MG CAP PO SCH (09:14)
[2020-12-21] MEDS: ENOXAPARIN 40 MG/0.4 ML SYRINGE SQ SCH ×2 (09:15→20:44)
[2020-12-21] MEDS: ASCORBIC ACID 500 MG TAB PO SCH ×2 (09:15→20:48)
[2020-12-21] MEDS: FAMOTIDINE 20 MG TAB PO SCH ×2 (09:15→20:44)
--- NOTE | 2020-12-21 13:58 | P.PN ---
Subjective Progress Note Date: 12/21/20 20-year-old male patient diagnosed having COVID-19 infection and during this cu rrent hospitalization the patient developed some mild hypoxemia for that reason a pulmonary a station was requested. The patient has long history of psychiatric disorder and the patient has history of schizophrenia schizoaffective disorder and the patient was having altered mentation psychosis. The patient was also having fever at a time of presentation and some limited diarrhea. Poor historian. Seem to be quite psychotic at time of admission and same time there will may be a acute manic symptoms and the patient was seen by psychiatry and a appropriate medication adjustments was done. Meanwhile, in terms of his COVID-19 related pneumonia, intermittent markers not been checked. The patient does not have a cough or sputum production. No chest that has been no wheezing. Diarrhea subsided. He is currently on Decadron 6 mg by mouth daily basis. On 2 L of oxygen, the patient's pulse ox was 90%. His chest x-ray was showing bilateral moderate perihilar patchy opacities. No evidence of the pleural effusion. Note is of any airspace disease. He is sitting comfortably on a chair. Denies having any respiratory difficulties. He admits of obstructive sleep apnea and he apparently has a CPAP machine that he utilizes at home. The patient has been already vaccinated with COVID-19 vaccine and he got his first dose of Pfizer on 11/30/2020 12/20/2020, the patient is on room air oxygen. His pulse ox is currently 95%. Hemodynamically stable. No respiratory difficulties. Ambulate in the room and is quite active. On his blood work, his white cell count is at 3. D-dimer is up to 6.6. His electrolytes are showing a component of non-anion gap metabolic acidosis with a bicarb of 18.8. His LDH is 1031. His CRP level is at 16.1. Urine toxin was positive for marijuana. The patient remains on Decadron 6 mg by mouth daily. His taken Lovenox 40 mg subcu every 12 hours based on the elevated d-dimer levels. He is also on Remdesivir day #2 of treatment. 12/21/2020, the patient has no specific complaints. Is on room air oxygen. He is singing happily in his room. Is completing a course of Remdesivir day #3 of treatment. No fever. No chills. No other complaints. Current d-dimer at 6.63. LDH is 1031 and the CRP level is at 16.1. White cell count is at 3 with a hemoglobin of 11.2. His room air oxygen is around 93%. Objective - Vital Signs Vital signs: Vital Signs Temp 97.8 F 12/21/20 10:00 Pulse 99 12/21/20 10:00 Resp 20 12/21/20 10:00 BP 133/80 12/21/20 10:00 Pulse Ox 93 L 12/21/20 10:00 Intake & Output 12/20/20 12/21/20 12/21/20 18:59 06:59 18:59 Intake Total 708 200 Balance 708 200 Intake: Oral 708 200 Other: # Voids 1 2 - Exam Morbidly obese, calm comfortable, BMI of 62.5 Head exam was generally normal. There was no scleral icterus or corneal arcus. Mucous membranes were moist. Neck was supple and without jugular venous distension, thyromegaly, or carotid bruits. Carotids were easily palpable bilaterally. There was no adenopathy. The patient has significant crowding of the posterior oropharynx and the patient has a Mallampati class IV lung sounds are diminished bilaterally along with some few crackles in lung bases Cardiac exam revealed the PMI to be normally situated and sized. The rhythm was regular and no extrasystoles were noted during several minutes of auscultation. The first and second heart sounds were normal and physiologic splitting of the second heart sound was noted. There were no murmurs, rubs, clicks, or gallops. Abdominal exam revealed normal bowel sounds. The abdomen was soft, non-tender, and without masses, organomegaly, or appreciable enlargement of the abdominal aorta. extremities are slightly swollen. No cyanosis. No clubbing. Neurologically, the patient is awake and alert and the patient does not have any focal neurological deficit. Cranial nerves are essentially intact. psychiatrically the patient is confused, occasionally delusional and the patient has rashes speech. Please refer to the full psychiatric evaluation that was done by the psychiatrist. - Labs CBC & Chem 7: 12/18/20 06:17 12/18/20 06:17 Labs: Microbiology - Last 24 Hours (Table) 12/16/20 18:37 Blood Culture - Preliminary Blood No Growth after 96 hours Assessment and Plan Plan: 1 acute COVID-19 related pneumonia. Patient is or the vaccinated and the patient has received 1 dose of Pfizer vaccine on 11/30/2020. He comes in for some altered mentation and fever and diarrhea and the patient is currently diagnosed having COVID-19 related pneumonia with but the pulmonary infiltrates and mild hypoxemia. For now, the patient remains on room air oxygen. Is completing his treatment. Inflammatory markers including LDH is elevated. D-dimer is also high. 2 acute hypoxic respiratory failure currently on 2 L nasal cannula 3 morbid obesity with a BMI 62.5 4 obstructive sleep apnea maintained on CPAP on outpatient basis 5 schizophrenia and schizoaffective disorder 6 acute manic symptoms with disorganized thinking and pressure speech and currently the patient on Haldol 7 history of marijuana use Plan Clinically stable The patient is currently on room air oxygen Decadron 6 mg by mouth daily Remdesivir per protocol, day #3 Lovenox for DVT prophylaxis Check inflammatory markers at baseline, LDH level is at 1031 and the CRP level is at 16.1. We'll continue to monitor those. Psychiatry to manage the patient's acute manic symptoms and schizophrenia Obtain a CPAP machine from home, the patient was able to provide his own CPAP machine and the patient is going to use his CPAP machine from home. We'll continue to follow
--- NOTE | 2020-12-21 14:37 | P.PN ---
Subjective 20-year-old male was admitted because of acute psychosis. Patient appears to have significant tangentiality patient may have schizophrenia or schizoaffective disorder. Patient the has seen primary care physician yesterday and had covid test because of the fever which was positive patient was also having diarrhea. Patient easily loses train of thought and denied a very good historian patient says his diarrhea is gone now and only lasted for a day. I'm unable to get any further history. Patient is acutely psychotic apart from that patient doesn't have any other delirium at this time. Patient is not requiring any oxygen. Patient is on Truvada, if he is to be on preexposure prophylaxis. Patient is bit hyponatremic and hypokalemic. 12/18/2020 I do not have any labs available yet on this patient. At this point of time, his jennifer or psychosis only issue. Patient was started on Zyprexa by psychiatry. Social work is working on transferred to psychiatric facility who can admit him with his CODE STATUS. 12/19/2020 Patient the manic symptoms improved. But patient is requiring oxygen at this time. Patient has slight wheeze on exam patient does have history of asthma. Pulmonary will be consulted patient will not be started on suspect steroids it at patient will be started on inhaled steroids. Pulmonology to evaluate need fo r Remdesivir and possibly steroids. A she is still having occasional diarrhea. Continues to have cough. 12/20/2020 Patient is not requiring oxygen today although his inflammatory markers that his d-dimer is elevated I'll change the Lovenox to twice a day. Patient was started on Decadron by pulmonary which will be continued. Patient to also received Remdesivir. 12/21/2020 Patient is saturating at 93% on room air continues to have episodes of jennifer. Constitutional: Denied any fatigue denied any fever. Cardio vascular: denied any chest pain, palpitations Gastrointestinal denied any nausea vomiting Pulmonary: Does have cough Neurologic denied any new focal deficits All inpatient medications were reviewed and appropriate changes in these medications as dictated in the interval history and assessment and plan. Objective - Vital Signs Vital signs: Vital Signs Temp 97.8 F 12/21/20 10:00 Pulse 99 12/21/20 10:00 Resp 20 12/21/20 10:00 BP 133/80 12/21/20 10:00 Pulse Ox 93 L 12/21/20 10:00 Intake & Output 12/20/20 12/21/20 12/21/20 18:59 06:59 18:59 Intake Total 708 520 Balance 708 520 Intake: Oral 708 520 Other: # Voids 1 2 - Exam PHYSICAL EXAMINATION: GENERAL: The patient is alert and oriented and gentian felecia he loses train of clot, not in any acute distress. Well developed, well nourished. HEENT: Pupils are round and equally reacting to light. EOMI. No scleral icterus. No conjunctival pallor. Normocephalic, atraumatic. No pharyngeal erythema. No thyromegaly. CARDIOVASCULAR: S1 and S2 present. No murmurs, rubs, or gallops. PULMONARY: Good air entry into bilateral lung rogers, no wheezing on exam ABDOMEN: Soft, nontender, nondistended, normoactive bowel sounds. No palpable organomegaly. MUSCULOSKELETAL: No joint swelling or deformity. EXTREMITIES: No cyanosis, clubbing, or pedal edema. NEUROLOGICAL: Gross neurological examination did not reveal any focal deficits. SKIN: No rashes. - Labs CBC & Chem 7: 12/18/20 06:17 12/18/20 06:17 Labs: Microbiology - Last 24 Hours (Table) 12/16/20 18:37 Blood Culture - Preliminary Blood No Growth after 96 hours Assessment and Plan Plan: -Covid 19 infection and pneumonia: Patient was hypoxic yesterday requiring oxygen because of which a pulmonary evaluated the patient and patient was started on Remdesivir and steroids. Patient is presently not requiring any oxygen. Patient received a 1 shot of Pfizer vaccine -Mild asthma exacerbation: Improved now. Patient had elevated d-dimer because of which I'm increase the Lovenox to 40 twice a day -Hypovolemic hyponatremia improved -Mild diarrhea secondary to Covid 19 -Hypokalemia potassium was replaced -Acute psychosis: Secondary to bipolar jennifer , patient is presently on Haldol and Zyprexa with improved symptoms -Nicotine use and marijuana use. DVT prophylaxis Lovenox.
[2020-12-21] MEDS: REMDESIVIR 100 MG in SODIUM CHLORIDE 0.9% 250 ML IVPB SCH (15:05)
[2020-12-21] MEDS ORDERED: HALOPERIDOL LACTATE 5 MG/ML 1 ML VIAL IM STA (20:18)
[2020-12-21] MEDS ORDERED: LORazepam 2 MG/ML INJ IM STA (20:24)
[2020-12-22] MEDS: LORazepam 1 MG TAB PO PRN ×3 (02:29→19:57)
[2020-12-22] MEDS: SYMBICORT 160-4.5 MCG INHALER INHALATION SCH ×2 (07:17→20:31)
[2020-12-22] MEDS: dexAMETHasone 2 MG TAB PO SCH (08:06)
[2020-12-22] MEDS: ZINC SULFATE 220 MG CAP PO SCH (08:06)
[2020-12-22] MEDS: ASCORBIC ACID 500 MG TAB PO SCH ×2 (08:06→19:57)
[2020-12-22] MEDS: FAMOTIDINE 20 MG TAB PO SCH ×2 (08:06→19:57)
[2020-12-22] MEDS: haloperidoL 5 MG TAB PO SCH ×2 (08:06→19:57)
[2020-12-22] MEDS: ENOXAPARIN 40 MG/0.4 ML SYRINGE SQ SCH ×2 (08:06→19:58)
--- NOTE | 2020-12-22 08:07 | XR ---
EXAMINATION TYPE: XR chest 1V portable DATE OF EXAM: 12/22/2020 COMPARISON: 12/16/2020 INDICATION: Covid TECHNIQUE: Single frontal view of the chest is obtained. FINDINGS: The heart size is normal. The pulmonary vasculature is normal. Patchy bilateral infiltrates are present. This is less consolidated than previous. More focal consoli dation is in the left perihilar region. Infiltrate is increased at the left base. IMPRESSION: 1. Worsening diffuse bilateral lung infiltrates can be compatible with atypical pneumonia.
[2020-12-22 10:01] LABS: C Reactive Protein 4.8 mg/dL (0.0-0.8)
[2020-12-22] MEDS: EMTRICITABINE/TENOFOVIR 200MG/300MG PO SCH (11:16)
--- NOTE | 2020-12-22 11:57 | P.PN ---
Subjective Progress Note Date: 12/22/20 20-year-old male patient diagnosed having COVID-19 infection and during this cu rrent hospitalization the patient developed some mild hypoxemia for that reason a pulmonary a station was requested. The patient has long history of psychiatric disorder and the patient has history of schizophrenia schizoaffective disorder and the patient was having altered mentation psychosis. The patient was also having fever at a time of presentation and some limited diarrhea. Poor historian. Seem to be quite psychotic at time of admission and same time there will may be a acute manic symptoms and the patient was seen by psychiatry and a appropriate medication adjustments was done. Meanwhile, in terms of his COVID-19 related pneumonia, intermittent markers not been checked. The patient does not have a cough or sputum production. No chest that has been no wheezing. Diarrhea subsided. He is currently on Decadron 6 mg by mouth daily basis. On 2 L of oxygen, the patient's pulse ox was 90%. His chest x-ray was showing bilateral moderate perihilar patchy opacities. No evidence of the pleural effusion. Note is of any airspace disease. He is sitting comfortably on a chair. Denies having any respiratory difficulties. He admits of obstructive sleep apnea and he apparently has a CPAP machine that he utilizes at home. The patient has been already vaccinated with COVID-19 vaccine and he got his first dose of Pfizer on 11/30/2020 12/20/2020, the patient is on room air oxygen. His pulse ox is currently 95%. Hemodynamically stable. No respiratory difficulties. Ambulate in the room and is quite active. On his blood work, his white cell count is at 3. D-dimer is up to 6.6. His electrolytes are showing a component of non-anion gap metabolic acidosis with a bicarb of 18.8. His LDH is 1031. His CRP level is at 16.1. Urine toxin was positive for marijuana. The patient remains on Decadron 6 mg by mouth daily. His taken Lovenox 40 mg subcu every 12 hours based on the elevated d-dimer levels. He is also on Remdesivir day #2 of treatment. 12/21/2020, the patient has no specific complaints. Is on room air oxygen. He is singing happily in his room. Is completing a course of Remdesivir day #3 of treatment. No fever. No chills. No other complaints. Current d-dimer at 6.63. LDH is 1031 and the CRP level is at 16.1. White cell count is at 3 with a hemoglobin of 11.2. His room air oxygen is around 93%. I met 2020, the patient is obviously eliciting psychotic behavior. He is acting aggressive and occasionally being rough on nurses. He did spit on the window and he did also break the door. He was yelling and calling 3 L and using foul language and the nurses. He is on day 3 of Remdesivir and he is on steroids . She is also restless. He received Haldol earlier. Hemodynamically stable. No signs of any respiratory distress. I'm wondering whether the steroid this Cottle's psychosis worse and for that reason I may stop both the combination of Decadron and Remdesivir. Inflammatory markers are improving and there is an obvious drop in the LDH and a d-dimer. Objective - Vital Signs Vital signs: Vital Signs Temp 97.5 F L 12/22/20 10:00 Pulse 102 H 12/22/20 10:00 Resp 16 12/22/20 10:00 BP 129/77 12/22/20 10:00 Pulse Ox 94 L 12/22/20 10:00 Intake & Output 12/21/20 12/22/20 12/22/20 18:59 06:59 18:59 Intake Total 520 1500 200 Balance 520 1500 200 Intake: Oral 520 1500 200 Other: # Voids 2 1 - Exam Morbidly obese, calm comfortable, BMI of 62.5 Head exam was generally normal. There was no scleral icterus or corneal arcus. Mucous membranes were moist. Neck was supple and without jugular venous distension, thyromegaly, or carotid bruits. Carotids were easily palpable bilaterally. There was no adenopathy. The patient has significant crowding of the posterior oropharynx and the patient has a Mallampati class IV lung sounds are diminished bilaterally along with some few crackles in lung bases Cardiac exam revealed the PMI to be normally situated and sized. The rhythm was regular and no extrasystoles were noted during several minutes of auscultation. The first and second heart sounds were normal and physiologic splitting of the second heart sound was noted. There were no murmurs, rubs, clicks, or gallops. Abdominal exam revealed normal bowel sounds. The abdomen was soft, non-tender, and without masses, organomegaly, or appreciable enlargement of the abdominal aorta. extremities are slightly swollen. No cyanosis. No clubbing. Neurologically, the patient is awake and alert and the patient does not have any focal neurological deficit. Cranial nerves are essentially intact. psychiatrically the patient is confused, occasionally delusional and the patie nt has rashes speech. Please refer to the full psychiatric evaluation that was done by the psychiatrist. - Labs CBC & Chem 7: 12/18/20 06:17 12/18/20 06:17 Labs: Abnormal Lab Results - Last 24 Hours (Table) 12/22/20 12/22/20 Range/Units 05:51 05:51 D-Dimer 2.48 H (<0.60) mg/L FEU Lactate Dehydrogenase 665 H (120-246) U/L C-Reactive Protein 4.8 H (0.0-0.8) mg/dL Microbiology - Last 24 Hours (Table) 12/16/20 18:37 Blood Culture - Preliminary Blood No Growth after 120 hours Assessment and Plan Plan: 1 acute COVID-19 related pneumonia. Patient is or the vaccinated and the patient has received 1 dose of [employer] vaccine on 11/30/2020. He comes in for some altered mentation and fever and diarrhea and the patient is currently diagnosed having COVID-19 related pneumonia with but the pulmonary infiltrates and mild hypoxemia. For now, the patient remains on room air oxygen. Is completing his treatment. Inflammatory markers including LDH is elevated. D- dimer is also high. 2 acute hypoxic respiratory failure currently on 2 L nasal cannula 3 morbid obesity with a BMI 62.5 4 obstructive sleep apnea maintained on CPAP on outpatient basis 5 schizophrenia and schizoaffective disorder currently having acute psychotic features 6 acute manic symptoms with disorganized thinking and pressure speech and currently the patient on Haldol 7 history of marijuana use Plan Clinically stable, psychiatrically worse The patient remains on room air oxygen Discontinue the Decadron for worsening of his psychotic features. Discontinue Remdesivir Lovenox for DVT prophylaxis Inflammatory markers are improving Psychiatry to manage the patient's acute manic symptoms and schizophrenia and he is psychotic for now Obtain a CPAP machine from home, the patient was able to provide his own CPAP machine and the patient is going to use his CPAP machine from home. We'll continue to follow
--- NOTE | 2020-12-22 14:05 | P.PN ---
Subjective 20-year-old male was admitted because of acute psychosis. Patient appears to have significant tangentiality patient may have schizophrenia or schizoaffective disorder. Patient the has seen primary care physician yesterday and had covid test because of the fever which was positive patient was also having diarrhea. Patient easily loses train of thought and denied a very good historian patient says his diarrhea is gone now and only lasted for a day. I'm unable to get any further history. Patient is acutely psychotic apart from that patient doesn't have any other delirium at this time. Patient is not requiring any oxygen. Patient is on Truvada, if he is to be on preexposure prophylaxis. Patient is bit hyponatremic and hypokalemic. 12/18/2020 I do not have any labs available yet on this patient. At this point of time, his jennifer or psychosis only issue. Patient was started on Zyprexa by psychiatry. Social work is working on transferred to psychiatric facility who can admit him with his CODE STATUS. 12/19/2020 Patient the manic symptoms improved. But patient is requiring oxygen at this time. Patient has slight wheeze on exam patient does have history of asthma. Pulmonary will be consulted patient will not be started on suspect steroids it at patient will be started on inhaled steroids. Pulmonology to evaluate need fo r Remdesivir and possibly steroids. A she is still having occasional diarrhea. Continues to have cough. 12/20/2020 Patient is not requiring oxygen today although his inflammatory markers that his d-dimer is elevated I'll change the Lovenox to twice a day. Patient was started on Decadron by pulmonary which will be continued. Patient to also received Remdesivir. 12/21/2020 Patient is saturating at 93% on room air continues to have episodes of jennifer. 12/22/2020 Patient the manic symptoms and agitation were worse last night and earlier today morning because of which systemic steroids were discontinued. When I evaluated the patient patient to calm down and sleeping Review of systems: Unable to obtain due to his clinical condition All inpatient medications were reviewed and appropriate changes in these medications as dictated in the interval history and assessment and plan. Objective - Vital Signs Vital signs: Vital Signs Temp 97.5 F L 12/22/20 10:00 Pulse 102 H 12/22/20 10:00 Resp 16 12/22/20 10:00 BP 129/77 12/22/20 10:00 Pulse Ox 94 L 12/22/20 10:00 Intake & Output 12/21/20 12/22/20 12/22/20 18:59 06:59 18:59 Intake Total 520 1500 200 Balance 520 1500 200 Intake: Oral 520 1500 200 Other: # Voids 2 1 - Exam PHYSICAL EXAMINATION: GENERAL: Sleeping as he received antipsychotics not in any acute distress. Well developed, well nourished. Obese HEENT: Pupils are round and equally reacting to light. EOMI. No scleral icterus. No conjunctival pallor. Normocephalic, atraumatic. No pharyngeal erythema. No thyromegaly. CARDIOVASCULAR: S1 and S2 present. No murmurs, rubs, or gallops. PULMONARY: Good air entry into bilateral lung rogers, no wheezing on exam ABDOMEN: Soft, nontender, nondistended, normoactive bowel sounds. No palpable organomegaly. MUSCULOSKELETAL: No joint swelling or deformity. EXTREMITIES: No cyanosis, clubbing, or pedal edema. NEUROLOGICAL: Patient is sleeping SKIN: No rashes. - Labs CBC & Chem 7: 12/18/20 06:17 12/18/20 06:17 Labs: Abnormal Lab Results - Last 24 Hours (Table) 12/22/20 12/22/20 Range/Units 05:51 05:51 D-Dimer 2.48 H (<0.60) mg/L FEU Lactate Dehydrogenase 665 H (120-246) U/L C-Reactive Protein 4.8 H (0.0-0.8) mg/dL Microbiology - Last 24 Hours (Table) 12/16/20 18:37 Blood Culture - Preliminary Blood No Growth after 120 hours Assessment and Plan Plan: -Covid 19 infection and pneumonia: She was a hypoxic for a day or not requiring any oxygen at this time received Remdesivir and steroids. Without these were discontinued as patient has increased agitation. Patient received a 1 shot of Pfizer vaccine -Mild asthma exacerbation: Improved now. Patient had elevated d-dimer because of which patient is on Lovenox to 40 twice a day. D-dimer has come down now -Hypovolemic hyponatremia improved -Mild diarrhea secondary to Covid 19 or diarrhea improved -Hypokalemia potassium was replaced -Acute psychosis: Secondary to bipolar jennifer , patient is presently on Haldol and Zyprexa with improved symptoms. Psychiatry is managing. -Nicotine use and marijuana use. DVT prophylaxis Lovenox.
[2020-12-23] MEDS: LORazepam 1 MG TAB PO PRN ×4 (00:42→21:09)
[2020-12-23] MEDS: FAMOTIDINE 20 MG TAB PO SCH ×2 (08:00→21:08)
[2020-12-23] MEDS: ASCORBIC ACID 500 MG TAB PO SCH ×2 (08:00→21:08)
[2020-12-23] MEDS: ENOXAPARIN 40 MG/0.4 ML SYRINGE SQ SCH (08:00)
[2020-12-23] MEDS: ZINC SULFATE 220 MG CAP PO SCH (08:00)
[2020-12-23] MEDS: haloperidoL 5 MG TAB PO SCH (08:01)
[2020-12-23] MEDS: EMTRICITABINE/TENOFOVIR 200MG/300MG PO SCH (08:01)
[2020-12-23] MEDS: SYMBICORT 160-4.5 MCG INHALER INHALATION SCH ×2 (09:23→20:25)
[2020-12-23] MEDS ORDERED: HALOPERIDOL LACTATE 5 MG/ML 1 ML VIAL IM PRN (13:59)
--- NOTE | 2020-12-23 14:13 | P.PN ---
Progress Note - Text Progress Note Date: 12/23/20 INTERVAL HISTORY: Patient was seen sleeping on the couch in his room with his room in disarray. The patient has been noted to be intermittently agitated with periods of agitation mainly occurring at night. At this time, the patient does continue to display significant manic symptoms with little regard to personal space of others. Patient also is repetitive and stating that he "regrets eating my own feces." The patient constantly repeats this phrase. He is currently not reporting any suicidal or homicidal ideation, intention, and/or plan. The patient is requesting that he is discharged. He understands that he is waiting placement at [facility] and was initially hesitant but later stated, "Please just send me to [facility]" as the interview continued. The patient has been in adherent with his medications and is not reporting any significant side effects at this time. He is not reporting any auditory or visual hallucinations. He is denying any paranoia or other delusions. Patient reportedly did well on his home medication of Invega, tegretol, and trazodone. MENTAL STATUS EXAM: General Appearance: Patient appears to be stated age is alert and cooperative. He requires frequent redirection. Behavior: Patient is calmly seated without any agitated behavior. Psychomotor activity is elevated. Patient has little regard for personal space and approaches the provider quite closely and had to be redirected multiple times to step back. Speech: Patient's speech is fluent and nonpressured. Hyperverbal, spontaneous, but interruptible. Mood/Affect: Mood is "doing okay," affect is expansive and childlike. Suicidality/Homicidality: Patient denies having any suicidal or homicidal ideation intent or plan. Perceptions: Patient denies any visual hallucinations and denies any auditory hallucinations Though content/process: Some bizarre delusional thought content is endorsed. Disorganization. Memory and concentration: AOX3, grossly intact for the purposes of this session Judgment and insight: Poor Vital Signs Temp 97.7 F 12/23/20 05:35 Pulse 96 12/23/20 08:09 Resp 18 12/23/20 05:35 BP 117/74 12/23/20 05:35 Pulse Ox 92 L 12/23/20 05:35 Intake & Output 05/09/21 05/10/21 05/10/21 18:59 06:59 18:59 Intake Total 720 Balance 720 Intake: Oral 720 Other: Voiding Method Toilet # Voids 3 2 # Bowel Movements 2 ASSESSMENT: Bipolar disorder, manic episode, likely secondary to steroid-induced jennifer COVID-19 Nicotine use Cannabis use PLAN: -At this time patient DOES meet criteria for inpatient psychiatric admission. When medically stable, patient is eligible for transfer to a psych bed when available. The patient is currently awaiting placement for a [place] [id number] psychiatric unit. -Would recommend the following medication changes/additions: Start Trazodone 100 mg by mouth at bedtime for insomnia Discontinue Haldol and start Invega 9 mg by mouth at bedtime for psychosis/mood stabilization We will start Haldol 5 mg IM every 6 hours when necessary for agitation We will increase Ativan to 2 mg by mouth every 6 hours PRN for agitation. -Cannot leave AMA at this time. Patient will need a petition and certification if attempting to leave AMA. -Will continue to follow along
[2020-12-23 15:31] VITALS: BMI 62.4
--- NOTE | 2020-12-23 18:11 | P.PN ---
Subjective Progress Note Date: 12/23/20 Principal diagnosis: COVID-19 pneumonia 20-year-old male patient diagnosed having COVID-19 infection and during this current hospitalization the patient developed some mild hypoxemia for that reason a pulmonary a station was requested. The patient has long history of psychiatric disorder and the patient has history of schizophrenia schizoaffective disorder and the patient was having altered mentation psychosis. The patient was also having fever at a time of presentation and some limited diarrhea. Poor historian. Seem to be quite psychotic at time of admission and same time there will may be a acute manic symptoms and the patient was seen by psychiatry and a appropriate medication adjustments was done. Meanwhile, in terms of his COVID-19 related pneumonia, intermittent markers not been checked. The patient does not have a cough or sputum production. No chest that has been no wheezing. Diarrhea subsided. He is currently on Decadron 6 mg by mouth daily basis. On 2 L of oxygen, the patient's pulse ox was 90%. His chest x-ray was showing bilateral moderate perihilar patchy opacities. No evidence of the pleural effusion. Note is of any airspace disease. He is sitting comfortably on a chair. Denies having any respiratory difficulties. He admits of obs tructive sleep apnea and he apparently has a CPAP machine that he utilizes at home. The patient has been already vaccinated with COVID-19 vaccine and he got his first dose of Pfizer on 11/30/2020 12/20/2020, the patient is on room air oxygen. His pulse ox is currently 95%. Hemodynamically stable. No respiratory difficulties. Ambulate in the room and is quite active. On his blood work, his white cell count is at 3. D-dimer is up to 6.6. His electrolytes are showing a component of non-anion gap metabolic acidosis with a bicarb of 18.8. His LDH is 1031. His CRP level is at 16.1. Urine toxin was positive for marijuana. The patient remains on Decadron 6 mg by mouth daily. His taken Lovenox 40 mg subcu every 12 hours based on the elevated d-dimer levels. He is also on Remdesivir day #2 of treatment. 12/21/2020, the patient has no specific complaints. Is on room air oxygen. He is singing happily in his room. Is completing a course of Remdesivir day #3 of treatment. No fever. No chills. No other complaints. Current d-dimer at 6.63. LDH is 1031 and the CRP level is at 16.1. White cell count is at 3 with a hemoglobin of 11.2. His room air oxygen is around 93%. I met 2020, the patient is obviously eliciting psychotic behavior. He is acting aggressive and occasionally being rough on nurses. He did spit on the window and he did also break the door. He was yelling and calling 3 L and using foul language and the nurses. He is on day 3 of Remdesivir and he is on steroids . She is also restless. He received Haldol earlier. Hemodynamically stable. No signs of any respiratory distress. I'm wondering whether the steroid this Stone's psychosis worse and for that reason I may stop both the combination of Decadron and Remdesivir. Inflammatory markers are improving and there is an obvious drop in the LDH and a d-dimer. On 12/23/2020 patient seen in follow-up on medical surgical floor, he is breathing comfortably right now, room air pulse ox 92%, doing much better, still has a bit of a congested cough, but no complaints of worsening dyspnea, no fever or chills, medicines have been stable, Decadron has been discontinued, patient has completed his Remdesivir. His last chest x-ray yesterday showed a worsening diffuse bilateral lung infiltrates. Today's labs have been reviewed, his d- dimer is improving and is down to 2.48, his inflammatory markers are improving. He continues on Lovenox 40 mg twice daily which We can cut back to once daily and he continues on vitamins, Decadron has been discontinued related to his psychotic episodes Objective - Vital Signs Vital signs: Vital Signs Temp 97.8 F 12/23/20 14:00 Pulse 111 H 12/23/20 14:00 Resp 20 12/23/20 14:00 BP 121/78 12/23/20 14:00 Pulse Ox 95 12/23/20 14:00 Intake & Output 12/22/20 12/23/20 12/23/20 18:59 06:59 18:59 Intake Total 720 Balance 720 Weight 180.983 kg Intake: Oral 720 Other: Voiding Method Toilet # Voids 3 2 # Bowel Movements 2 - Exam GENERAL EXAM: Alert, 20-year-old obese white male, on room air, with a pulse ox of 92-96% comfortable in no apparent distress. HEAD: Normocephalic/atraumatic. EYES: Normal reaction of pupils, equal size. Conjunctiva pink, sclera white. NOSE: Clear with pink turbinates. THROAT: No erythema or exudates. NECK: No masses, no JVD, no thyroid enlargement, no adenopathy. CHEST: No chest wall deformity. Symmetrical expansion. LUNGS: Equal air entry with no crackles, wheeze, rhonchi or dullness. CVS: Regular rate and rhythm, normal S1 and S2, no gallops, no murmurs, no rubs ABDOMEN: Soft, nontender. No hepatosplenomegaly, normal bowel sounds, no guarding or rigidity. EXTREMITIES: No clubbing, no edema, no cyanosis, 2+ pulses and upper and lower extremities. MUSCULOSKELETAL: Muscle strength and tone normal. SPINE: No scoliosis or deformity SKIN: No rashes CENTRAL NERVOUS SYSTEM: Alert and oriented -3. No focal deficits, tone is normal in all 4 extremities. PSYCHIATRIC: Alert and oriented -3. Appropriate affect. Intact judgment and insight. - Labs CBC & Chem 7: 12/18/20 06:17 12/18/20 06:17 Labs: Microbiology - Last 24 Hours (Table) 12/16/20 18:37 Blood Culture - Final Blood No Growth after 144 hours Assessment and Plan Plan: Assessment: #1. Acute COVID-19 related pneumonia, patient was vaccinated with his first dose of 5. Vaccine on 11/30/2020. Patient came in with fever, diarrhea, altered mentation, with onset of symptoms within a week of presentation. Chest x-ray on admission showed pulmonary infiltrates and mild hypoxemia. Patient has completed Remdesivir course #2. Acute hypoxic respiratory failure, currently on room air #3. Morbid obesity with BMI of 62.5 kg/m #4. Obstructive sleep apnea on CPAP on an outpatient basis #5. Schizophrenia and schizoaffective disorder currently having acute psychotic features #6. Acute manic symptoms with disorganized thinking pressure speech and cur rently patient is on hold oh #7. History of marijuana use Plan: Patient is currently not requiring supplemental oxygen Vital signs have been stable No worsening dyspnea No cough, Decadron has been discontinued for worsening psychotic features We'll cut back to Lovenox to once daily Patient has completed his Remdesivir CPAP at bedtime Maintain safety precautions Psychiatric services are following in regards to patient's acute psychotic episode I performed a history & physical examination of the patient and discussed their management with my nurse practitioner, Elizabeth Marrufo. I reviewed the nurse practitioner's note and agree with the documented findings and plan of care. Lung sounds are positive for diminished breath sounds The findings and the impression was discussed with the patient. I attest to the documentation by the nurse practitioner. Time with Patient: Less than 30
--- NOTE | 2020-12-23 18:58 | PN ---
PROGRESS NOTE DATE OF SERVICE: 12/23/2020 This 20-year-old gentleman who was admitted with acute COVID-19 interstitial pneumonia with acute hypoxic respiratory failure also received remdesivir. The patient had some significant behavioral issues apparently. The patient apparently had steroid-induced jennifer per Psychiatry. Patient is being closely monitored at this time. No chest pain. No palpitations. Past medical history reviewed. REVIEW OF SYSTEMS: CARDIOVASCULAR SYSTEM: As mentioned earlier. RESPIRATORY SYSTEM: As mentioned earlier. GI: No nausea, vomiting, diarrhea. : No dysuria or retention. NERVOUS SYSTEM: No numbness, weakness. PSYCHIATRY: As mentioned earlier. CURRENT MEDICATIONS: Tylenol, Ventolin, vitamin C, Symbicort, Pepcid, Lovenox. Doses are reviewed. PHYSICAL EXAMINATION: Patient is alert, oriented x3. Pulse is 111, blood pressure 121/70, respiration 20, temperature 97.8, pulse ox 94% on room air. HEENT: Conjunctivae normal. NECK: No jugular venous distention. CARDIOVASCULAR SYSTEM: S1, S2 muffled. RESPIRATORY SYSTEM: Breath sounds diminished at the bases. A few scattered rhonchi. No crackles. ABDOMEN: Soft, non-tender. No mass palpable. LEGS: No edema. No swelling. NERVOUS SYSTEM: No focal deficit. LABS: CRP is 4.8. LDH is 665. D-dimer is 2.48. Other labs are noted. UA noted. Chest x-ray, which was reviewed personally by me, showed acute bilateral interstitial disease. ASSESSMENT: 1. Acute COVID-19 bilateral interstitial pneumonia with acute hypoxic respiratory failure. 2. Acute manic reaction secondary to steroid usage. 3. Mild asthma, acute exacerbation. 4. Hypovolemic hyponatremia. 5. Mild diarrhea secondary to COVID-19. 6. Hypokalemia. 7. Acute psychosis, possibly. 8. Elevated inflammatory markers of COVID-19. 9. Morbid obesity with body mass index of 62.5. 10.Obstructive sleep apnea history. 11.History of attention deficit disorder, attention deficit hyperactivity disorder. 12.History of bipolar and schizophrenia. 13.History of continued nicotine dependence. 14.History of tetrahydrocannabinol. 15.FULL CODE. RECOMMENDATIONS AND DISCUSSION: In this 20-year-old gentleman who presented with multiple complex medical issues, we will monitor the patient closely, continue the current medications, continue symptomatic treatment, continue with the bronchodilators. Continue the rest of the medications. Continue with haloperidol. Closely follow with Psychiatry. Guarded prognosis. Further recommendations to follow. Chest x-ray noted. MMODL / IJN: [id number] /
[2020-12-23] MEDS: ALBUTEROL HFA INHALER INHALATION SCH (20:25)
[2020-12-23] MEDS: traZODone HCL 100 MG TAB PO SCH (21:08)
[2020-12-23] MEDS: PALIPERIDONE 3 MG TAB.ER.24 PO SCH (21:10)
[2020-12-24] MEDS: SYMBICORT 160-4.5 MCG INHALER INHALATION SCH ×2 (07:16→21:30)
[2020-12-24] MEDS: ALBUTEROL HFA INHALER INHALATION SCH ×4 (07:16→21:30)
[2020-12-24] MEDS: EMTRICITABINE/TENOFOVIR 200MG/300MG PO SCH (08:00)
[2020-12-24] MEDS: ZINC SULFATE 220 MG CAP PO SCH (08:07)
[2020-12-24] MEDS: ENOXAPARIN 40 MG/0.4 ML SYRINGE SQ SCH (08:07)
[2020-12-24] MEDS: ASCORBIC ACID 500 MG TAB PO SCH ×2 (08:07→20:10)
[2020-12-24] MEDS: FAMOTIDINE 20 MG TAB PO SCH ×2 (08:07→20:10)
[2020-12-24] MEDS: LORazepam 1 MG TAB PO PRN ×2 (08:07→20:10)
[2020-12-24 09:10] LABS: Basophils # (A) 0.02 X 10*3/uL (0.00-0.10); Basophils % (A) 0.4 %; Eosinophils # (A) 0.14 X 10*3/uL (0.04-0.35); Eosinophils % (A) 2.5 %; HCT 35.9 % (39.6-50.0); HGB 11.5 g/dL (13.0-17.0); Lymphocytes # (A) 1.74 X 10*3/uL (0.90-5.00); Lymphocytes % (A) 30.9 %; MCH 28.5 pg (27.0-32.0); MCV 88.9 fL (80.0-97.0); Mean Platelet Volume 10.1 fL (9.5-12.2); Monocytes # (A) 0.59 X 10*3/uL (0.20-1.00); Monocytes % (A) 10.5 %; Neutrophils # (A) 3.04 X 10*3/uL (1.80-7.70); Neutrophils % (A) 53.7 %; Platelet Count 298 X 10*3/uL (140-440); RBC 4.04 X 10*6/uL (4.40-5.60); WBC 5.64 X 10*3/uL (4.50-10.00)
[2020-12-24 09:39] LABS: African American GFR (CKD) 195.4 (60.0-200.0); Calcium 8.4 mg/dL (8.7-10.3); Non-African American GFR(CKD) 168.6 (60.0-200.0); Potassium 3.5 mmol/L (3.5-5.5)
--- NOTE | 2020-12-24 14:05 | P.PN ---
Progress Note - Text Progress Note Date: 12/24/20 INTERVAL HISTORY: Patient was seen sleeping on the couch in his room. Patient was initially found sleeping but was arousable and able to participate in the psychiatric interview. Patient continues to display significant manic symptoms. He has no respect for personal space. He appears to be intrusive and loud. The patient expresses a strong desire to go to [facility] for psychiatric treatment. He is often repetitive and difficult to direct. He has been noted by staff to be increasingly agitated and elevated at times with Haldol 5 mg IM providing little to no relief of symptoms. The patient appears to be very preoccupied with his bowel movements. He has been noted by staff to be somewhat less manic today. He does not endorse any suicidal or homicidal ideation, intention, and/or plan. He is not reporting any auditory or visual hallucinations. He denies any paranoia or other delusions. He's been adherent with his medications is not reporting any significant side effects of this time. MENTAL STATUS EXAM: General Appearance: Patient appears to be stated age is alert and cooperative. He requires frequent redirection. Behavior: Patient is calmly seated without any agitated behavior. Psychomotor activity is elevated. Patient has little regard for personal space and approaches the provider quite closely and had to be redirected multiple times to step back. Speech: Patient's speech is pressured, spontaneous, and repetitive. Mood/Affect: Mood is "ready to go," affect is expansive and childlike. Suicidality/Homicidality: Patient denies having any suicidal or homicidal ideation intent or plan. Perceptions: Patient denies any visual hallucinations and denies any auditory hallucinations Though content/process: Some bizarre delusional thought content is endorsed. Disorganization and flight of ideas. Memory and concentration: AOX3, grossly intact for the purposes of this session Judgment and insight: Poor Vital Signs Temp 97.7 F 12/23/20 05:35 Pulse 96 12/23/20 08:09 Resp 18 12/23/20 05:35 BP 117/74 12/23/20 05:35 Pulse Ox 92 L 12/23/20 05:35 Intake & Output 12/22/20 12/23/20 12/23/20 18:59 06:59 18:59 Intake Total 720 Balance 720 Intake: Oral 720 Other: Voiding Method Toilet # Voids 3 2 # Bowel Movements 2 ASSESSMENT: Bipolar disorder, manic episode, likely secondary to steroid-induced jennifer COVID-19 Nicotine use Cannabis use PLAN: -At this time patient DOES meet criteria for inpatient psychiatric admission. When medically stable, patient is eligible for transfer to a psych bed when available. The patient is currently awaiting placement for a COVID-19 psyc hiatric unit. -Would recommend the following medication changes/additions: Start Trazodone 100 mg by mouth at bedtime for insomnia Continue Invega 9 mg by mouth at bedtime for mood stabilization/psychosis Continue Haldol 5 mg IM every 6 hours when necessary for agitation Continue increase Ativan to 2 mg by mouth every 6 hours PRN for agitation. We will restart Tegretol XR 200 mg by mouth daily for mood stabilization. -Cannot leave AMA at this time. Patient will need a petition and certification if attempting to leave AMA. -Will continue to follow along
--- NOTE | 2020-12-24 18:18 | PN ---
PROGRESS NOTE DATE OF SERVICE: 12/24/2020 This 20-year-old gentleman who was admitted with acute COVID-19 bilateral interstitial pneumonia has also had some acute psychotic reaction. The COVID-19 test was positive on admission, which was on 12/16/2020. The patient is awaiting a facility which will accept a COVID-19 patient, which is only in [place] in the [facility], according to the social human services assistants. Inflammatory markers of COVID-19 are still elevated. The patient is being closely monitored. Past medical history reviewed. REVIEW OF SYSTEMS: CARDIOVASCULAR SYSTEM: No angina, palpitations. RESPIRATORY SYSTEM: As mentioned earlier. GI: As mentioned earlier. : No dysuria or retention. NERVOUS SYSTEM: No numbness, weakness. CURRENT MEDICATIONS: Reviewed. They include Tylenol, Ventolin, vitamin C, Robitussin, Motrin. Doses and other medications are also reviewed. PHYSICAL EXAMINATION: Patient is alert, oriented x3. Pulse is 122, blood pressure 116/80, respiration 18, temperature 97.3, pulse ox 94% on room air. HEENT: Conjunctivae normal. NECK: No jugular venous distention. CARDIOVASCULAR SYSTEM: S1, S2 muffled. RESPIRATORY SYSTEM: Breath sounds diminished at the bases. A few scattered rhonchi. ABDOMEN: Soft, non-tender. NERVOUS SYSTEM: No focal deficit. LABS: D-dimer is 2.48. Other labs are noted. ASSESSMENT: 1. Acute COVID-19 bilateral interstitial pneumonia with acute hypoxic respiratory failure. 2. Manic reaction secondary to steroid usage. 3. Noncompliance with treatment. 4. Mild asthma, acute exacerbation. 5. Tachycardia. 6. Hypovolemic hyponatremia. 7. Mild diarrhea secondary to COVID-19. 8. Hypokalemia. 9. Acute psychosis, possibly. 10.Elevated inflammatory markers for COVID-19. 11.Morbid obesity with body mass index of 62.5. 12.Obstructive sleep apnea. 13.History of attention deficit disorder, attention deficit hyperactivity disorder. 14.History of bipolar, schizophrenia. 15.History of continued nicotine dependence. 16.History of tetrahydrocannabinol. 17.FULL CODE. RECOMMENDATIONS AND DISCUSSION: I recommend to continue current medications, continue with the monitoring, symptomatic treatment. I would also recommend repeat COVID-19 testing prior to any transfer. The most recent chest x-ray on 5/9, which was reviewed personally by me, showed bilateral infiltrates. I would also recommend repeat labs as well as chest x-ray. Guarded prognosis. Further recommendations to follow. MMODL / IJN: [id number] /
[2020-12-24] MEDS: PALIPERIDONE 3 MG TAB.ER.24 PO SCH (20:10)
[2020-12-24] MEDS: traZODone HCL 100 MG TAB PO SCH (20:10)
[2020-12-25] MEDS: LORazepam 1 MG TAB PO PRN ×2 (07:14→20:07)
[2020-12-25] MEDS: ENOXAPARIN 40 MG/0.4 ML SYRINGE SQ SCH (07:14)
[2020-12-25] MEDS: FAMOTIDINE 20 MG TAB PO SCH ×2 (07:14→20:07)
[2020-12-25] MEDS: ASCORBIC ACID 500 MG TAB PO SCH ×2 (07:14→20:07)
[2020-12-25] MEDS: EMTRICITABINE/TENOFOVIR 200MG/300MG PO SCH (07:15)
[2020-12-25 07:24] LABS: African American GFR (CKD) 165.4 (60.0-200.0); Albumin 3.9 g/dL (3.80-4.90); Albumin/Globulin Ratio 2.44 (1.60-3.17); Anion Gap 10.1 mmol/L (4.00-12.00); BUN/Creat Ratio 16.67 Ratio (12.00-20.00); Calcium 8.8 mg/dL (8.7-10.3); Carbon Dioxide 22.9 mmol/L (21.6-31.8); Globulin 1.6 g/dL (1.6-3.3); Non-African American GFR(CKD) 142.7 (60.0-200.0); Total Bilirubin 0.6 mg/dL (0.3-1.2); Total Protein 5.5 g/dL (6.2-8.2)
--- NOTE | 2020-12-25 07:39 | XR ---
EXAMINATION TYPE: XR chest 1V portable DATE OF EXAM: 12/25/2020 COMPARISON: 12/22/2020 HISTORY: Covid pneumonia TECHNIQUE: Single frontal view of the chest is obtained. FINDINGS: Patchy infiltrates throughout both lung rogers persist with slight interval improvement suggested. Co rrelate clinically and progress studies are advised. The cardiac silhouette size is within normal limits. The osseous structures are intact. IMPRESSION: 1. Patchy infiltrates throughout both lung rogers persist with slight interval improvement suggested . Correlate clinically and progress studies are advised.
[2020-12-25 07:42] LABS: Basophils % (A) 0 %; Eosinophils # (A) 0.1 k/uL (0-0.7); Eosinophils % (A) 1 %; HCT 42.5 % (39.0-53.0); HGB 13.5 gm/dL (13.0-17.5); Lymphocytes # (A) 2.2 k/uL (1.0-4.8); Lymphocytes % (A) 23 %; MCH 28.1 pg (25.0-35.0); MCHC 31.8 g/dL (31.0-37.0); MCV 88.1 fL (80.0-100.0); Mean Platelet Volume 7.4; Monocytes # (A) 0.6 k/uL (0-1.0); Monocytes % (A) 6 %; Neutrophils # (A) 6.2 k/uL (1.3-7.7); Neutrophils % (A) 67 %; RBC 4.83 m/uL (4.30-5.90); RDW 15.4 % (11.5-15.5); WBC 9.3 k/uL (3.8-10.6)
[2020-12-25 07:43] LABS: Platelet Count 397 k/uL (150-450)
[2020-12-25] MEDS: SYMBICORT 160-4.5 MCG INHALER INHALATION SCH ×2 (08:32→20:45)
[2020-12-25] MEDS: ALBUTEROL HFA INHALER INHALATION SCH ×4 (08:32→20:45)
[2020-12-25] MEDS: ZINC SULFATE 220 MG CAP PO SCH (09:53)
--- NOTE | 2020-12-25 14:13 | P.PN ---
Progress Note - Text Progress Note Date: 12/25/20 INTERVAL HISTORY: Patient was seen in his room. The patient reports that he is feeling better today. He is excited to be leaving the hospital floor. He has tested negative for covered. He is currently not reporting any suicidal homicidal ideation, intention, and/or plan. He is not reporting auditory or visual hallucinations. He continues to display some mood lability, psychomotor agitation, and impulsivity. These symptoms appear to be consistent with his diagnosis of bipolar disorder. The patient maintains that he is able to sleep well but continues to be noted by staff to be elevated throughout the day. He has been adherent with his medications and is not reporting any significant side effects at this time. MENTAL STATUS EXAM: General Appearance: Patient appears to be stated age is alert and cooperative. He requires frequent redirection. Behavior: Patient is calmly seated without any agitated behavior. Psychomotor activity is elevated. She continues to be intrusive. Speech: Patient's speech is pressured, spontaneous, and repetitive. Mood/Affect: Mood is "feeling great!" affect is expansive and childlike. Suicidality/Homicidality: Patient denies having any suicidal or homicidal ideation intent or plan. Perceptions: Patient denies any visual hallucinations and denies any auditory hallucinations Though content/process: No delusional thought content is endorse today. Disorganization and flight of ideas. Memory and concentration: AOX3, grossly intact for the purposes of this session Judgment and insight: Poor Vital Signs Temp 98.4 F 12/25/20 10:00 Pulse 110 H 12/25/20 10:00 Resp 20 12/25/20 10:00 BP 138/88 12/25/20 10:00 Pulse Ox 97 12/25/20 10:00 Intake & Output 12/24/20 12/25/20 12/25/20 18:59 06:59 18:59 Other: Voiding Method Toilet Toilet # Voids 6 2 ASSESSMENT: Bipolar disorder, manic episode, likely secondary to steroid-induced jennifer COVID-19 Nicotine use Cannabis use PLAN: -At this time patient DOES meet criteria for inpatient psychiatric admission. Patient tested negative for COVID as of 12/24/20. When patient is medically stable, patient may be transferred to a psychiatric unit. -Would recommend the following medication changes/additions: Continue trazodone 100 mg by mouth at bedtime for insomnia Continue Invega 9 mg by mouth at bedtime for mood stabilization/psychosis Continue Haldol 5 mg IM every 6 hours when necessary for agitation Continue Ativan to 2 mg by mouth every 6 hours PRN for agitation. Continue Tegretol XR 200 mg by mouth daily for mood stabilization. -Cannot leave AMA at this time. Patient will need a petition and certification if attempting to leave AMA. -Will continue to follow along
--- NOTE | 2020-12-25 19:22 | PN ---
PROGRESS NOTE DATE OF SERVICE: 12/25/2020 This 20-year-old gentleman who was admitted with acute COVID-19 pneumonia and acute interstitial pneumonia is being closely monitored at this time. The patient is awaiting placement at this time. The recent Covid 19 has been negative at this time. Chest x-ray showed bilateral interstitial pneumonia. PAST MEDICAL HISTORY: Reviewed. REVIEW OF SYSTEMS: CARDIOVASCULAR: No angina. RESPIRATION: As mentioned earlier. GI as mentioned earlier. Nervous system: No numbness. No weakness. CURRENT MEDICATIONS: Reviewed and include: Tylenol, Ventolin, vitamin C, Symbicort, Lovenox, Pepcid, Motrin, Ativan. PHYSICAL EXAM: Patient is alert and oriented times one. Pulse 116. Blood pressure 102/80, respiration 18, temperature 98 degrees, pulse ox 94% on room air. HEENT: Conjunctivae normal. NECK: No JVD. CARDIOVASCULAR: S1, S2. RESPIRATIONS: Breath sounds diminished in the bases. A few scattered rhonchi and crackles. ABDOMEN: Soft, nontender. LEGS are no edema. No swelling. NERVOUS SYSTEM: No focal deficits. LABS: AST 108 and ALT is 234. Inflammatory markers of COVID-19 is ntd. D-dimer is 2.84. ASSESSMENT: 1. Acute Covid 19, bilateral interstitial pneumonia with acute hypoxic respiratory failure. 2. Manic reaction secondary to steroid usage. 3. Noncompliance with treatment. 4. Mild asthma, acute exacerbation. 5. Elevated D-dimer without any evidence of pulmonary embolism. 6. Tachycardia. 7. Hypovolemic hyponatremia. 8. Mild dirrheasecondary to Covid 19. 9. Hypokalemia. 10.Acute psychosis, possibly. 11.Elevated inflammatory markers of COVID-19. 12.Morbid obesity with body mass index 62.5. 13.Obstructive sleep apnea. 14.History attention-deficit disorder, attention-deficit/hyperactivity disorder. 15.History of bipolar schizophrenia. 16.History of continued ongoing nicotine dependence. 17.History of THC. 18.FULL CODE. RECOMMENDATIONS AND DISCUSSION: Continue current medications, monitoring and symptomatic treatment. Otherwise, continue with current medications. Continue the Lovenox which may be continued. The patient has still elevated LFTs which will need close followup. Avoid hepatotoxic medications and further recommendations to follow. MMODL / IJN: [id number] / MTDD
[2020-12-25] MEDS: PALIPERIDONE 3 MG TAB.ER.24 PO SCH (20:07)
[2020-12-25] MEDS: traZODone HCL 100 MG TAB PO SCH (20:07)
[2020-12-25] MEDS: guaiFENesin-DM 100-10MG/5ML 10 ML CUP PO PRN (20:57)
[2020-12-26] MEDS: LORazepam 1 MG TAB PO PRN ×5 (01:22→23:19)
[2020-12-26] MEDS: SYMBICORT 160-4.5 MCG INHALER INHALATION SCH ×2 (08:27→19:39)
[2020-12-26] MEDS: ALBUTEROL HFA INHALER INHALATION SCH ×4 (08:27→19:39)
[2020-12-26] MEDS: EMTRICITABINE/TENOFOVIR 200MG/300MG PO SCH (08:37)
[2020-12-26] MEDS: ZINC SULFATE 220 MG CAP PO SCH (08:38)
[2020-12-26] MEDS: ASCORBIC ACID 500 MG TAB PO SCH ×2 (09:13→19:35)
[2020-12-26] MEDS: FAMOTIDINE 20 MG TAB PO SCH ×2 (09:13→19:35)
[2020-12-26] MEDS: ENOXAPARIN 40 MG/0.4 ML SYRINGE SQ SCH (09:13)
--- NOTE | 2020-12-26 13:44 | P.PN ---
Progress Note - Text Progress Note Date: 12/26/20 INTERVAL HISTORY: Patient was seen in his room. Patient reports that he is feeling significantly better today. He continues to express some kind of preoccupation regarding making it to the restroom on time processing not soiling himself but is otherwise reporting significant improvement in his mood. He is currently not reporting any suicidal or homicidal ideation, intention, and/or plan. He is not reporting any auditory or visual hallucinations. His dying any paranoia or other delusions. The patient has been directable and cooperative with staff. He has been adherent with his medications is not reporting any significant side effects. He is less intrusive today and displays more mood stability and is less labile. As per discussion with the patient's nurse, the patient has been sleeping well. MENTAL STATUS EXAM: General Appearance: Patient appears to be stated age is alert and cooperative and directable. Behavior: Patient is calmly seated without any agitated behavior. Psychomotor activity is normal and he is less intrusive. Speech: Patient's speech is spontaneous, nonpressured, and with normal fluency and tone. Mood/Affect: Mood is "feeling good!" Affect is bright. Suicidality/Homicidality: Patient denies having any suicidal or homicidal ideation intent or plan. Perceptions: Patient denies any visual hallucinations and denies any auditory hallucinations Though content/process: No delusional thought content is endorse today. Thought process appears to be linear and logical in short conversation. Memory and concentration: AOX3, grossly intact for the purposes of this session Judgment and insight: Improving ASSESSMENT: Bipolar disorder, manic episode, likely secondary to steroid-induced jennifer COVID-19 Nicotine use Cannabis use PLAN: -At this time patient DOES meet criteria for inpatient psychiatric admission. Patient tested negative for COVID as of 12/24/20. When patient is medically stable, patient may be transferred to a psychiatric unit. The patient uses point significant improvement in mood stability. If the patient continues to display a stable mood and better control of his manic symptoms, we may consider discharging the patient from the hospital tomorrow and rescind the recommendation for an inpatient psychiatric admission. -This provider attempted to contact the patient's mother over the phone but was met with a voicemail that did not confirm her identity. This provider will attempt to contact mother at a later time. -Would recommend the following medication changes/additions: Continue trazodone 100 mg by mouth at bedtime for insomnia Increase Invega to 12 mg by mouth at bedtime for mood stabilization/psychosis Continue Haldol 5 mg IM every 6 hours when necessary for agitation Continue Ativan to 2 mg by mouth every 6 hours PRN for agitation. Increase Tegretol XR to 200 mg by mouth twice daily for mood stabilization. -Cannot leave AMA at this time. Patient will need a petition and certification if attempting to leave AMA. -Will continue to follow along
[2020-12-26 16:49] LABS: ALT 223 U/L (4-49); AST 90 U/L (17-59); African American GFR (CKD) >90 (>60 ml/min/1.73 sqM); Albumin 3.5 g/dL (3.5-5.0); Albumin/Globulin Ratio 1.4; Alkaline Phosphatase 73 U/L (38-126); Anion Gap 7 mmol/L; Blood Urea Nitrogen 9 mg/dL (9-20); Calcium 9.4 mg/dL (8.4-10.2); Carbon Dioxide 24 mmol/L (22-30); Chloride 109 mmol/L (98-107); Globulin 2.5 g/dL; Glucose 95 mg/dL (74-99); Non-African American GFR(CKD) >90 (>60 ml/min/1.73 sqM); Potassium 4.8 mmol/L (3.5-5.1); Sodium 140 mmol/L (137-145); Total Bilirubin 0.7 mg/dL (0.2-1.3)
--- NOTE | 2020-12-26 16:55 | PN ---
PROGRESS NOTE DATE OF SERVICE: 12/26/2020 This 20-year-old gentleman who was admitted with COVID-19 pneumonia is being closely monitored. COVID-19 is negative at this time. No chest pain. No palpitations. No fever. Chest x-ray showed bilateral infiltrates. Psychiatry is following the patient closely. PHYSICAL EXAMINATION: Alert and oriented x2. Pulse 116. Blood pressure is 147/89, respiration 20, temperature 97.6, pulse ox 94% on room air. HEENT: Conjunctivae normal. NECK: No jugular venous distention. CARDIOVASCULAR SYSTEM: S1, S2 muffled. RESPIRATORY SYSTEM: Breath sounds diminished at the bases. A few scattered rhonchi. ABDOMEN: Soft, non-tender. NERVOUS SYSTEM: No focal deficit. LABS: AST, ALT slightly elevated at 108 and 234. ASSESSMENT: 1. Acute COVID-19 bilateral interstitial pneumonia with acute hypoxic respiratory failure. 2. Manic reaction secondary to steroid usage. 3. Noncompliance with treatment. 4. Mild asthma, acute exacerbation. 5. Elevated D-dimer without any evidence of acute pulmonary embolism. 6. Tachycardia. 7. Elevated AST, ALT. 8. Hypovolemic hyponatremia. 9. Mild diarrhea secondary COVID-19. 10.Hypokalemia. 11.Acute psychosis, possibly. 12.Elevated inflammatory markers of COVID-19. 13.Morbid obesity with body mass index of 62.5. 14.Obstructive sleep apnea. 15.History of attention deficit disorder, attention deficit hyperactivity disorder. 16.History of bipolar, schizophrenia. 17.History of continued ongoing nicotine dependence. 18.History of tetrahydrocannabinol. 19.FULL CODE. RECOMMENDATIONS AND DISCUSSION: I recommend to continue current medications, continue with the monitoring, symptomatic treatment. I recommend repeat labs. Avoid hepatotoxic medications. We will continue to monitor. Ensure oxygenation. Continue with psych medicine. Continue the vitamins and the rest of the supplementary medications. Further recommendations to follow. MMODL / IJN: [id number] /
[2020-12-26] MEDS: traZODone HCL 100 MG TAB PO SCH ×2 (19:35→19:36)
[2020-12-26] MEDS: guaiFENesin-DM 100-10MG/5ML 10 ML CUP PO PRN (20:11)
[2020-12-26] MEDS ORDERED: PALIPERIDONE 6 MG TAB.ER.24 PO SCH (21:00)
[2020-12-27] MEDS: LORazepam 1 MG TAB PO PRN (06:21)
[2020-12-27] MEDS: EMTRICITABINE/TENOFOVIR 200MG/300MG PO SCH (07:23)
[2020-12-27] MEDS: FAMOTIDINE 20 MG TAB PO SCH (07:24)
[2020-12-27] MEDS: ZINC SULFATE 220 MG CAP PO SCH (07:24)
[2020-12-27] MEDS: ASCORBIC ACID 500 MG TAB PO SCH (07:25)
[2020-12-27] MEDS: ENOXAPARIN 40 MG/0.4 ML SYRINGE SQ SCH (07:25)
[2020-12-27] MEDS: SYMBICORT 160-4.5 MCG INHALER INHALATION SCH (07:54)
[2020-12-27] MEDS: ALBUTEROL HFA INHALER INHALATION SCH ×2 (07:54→11:28)
[2020-12-27 11:29] LABS: Basophils # (A) 0.02 X 10*3/uL (0.00-0.10); Basophils % (A) 0.3 %; Eosinophils % (A) 1.4 %; HCT 41.9 % (39.6-50.0); HGB 12.9 g/dL (13.0-17.0); Lymphocytes # (A) 1.92 X 10*3/uL (0.90-5.00); Lymphocytes % (A) 27.2 %; MCH 28.5 pg (27.0-32.0); MCHC 30.8 g/dL (32.0-37.0); MCV 92.7 fL (80.0-97.0); Monocytes # (A) 0.64 X 10*3/uL (0.20-1.00); Monocytes % (A) 9.1 %; Neutrophils # (A) 4.26 X 10*3/uL (1.80-7.70); Neutrophils % (A) 60.3 %; Platelet Count 371 X 10*3/uL (140-440); RBC 4.52 X 10*6/uL (4.40-5.60); WBC 7.06 X 10*3/uL (4.50-10.00)
[2020-12-27 13:18] VITALS: BP 135/82; PULSE 99; RESP 16; TEMP 97.6
--- NOTE | 2020-12-27 14:27 | P.PN ---
Progress Note - Text Progress Note Date: 12/27/20 NTERVAL HISTORY: Patient was seen in his room. Patient reports that he is feeling really good t rajan. The patient is currently not reporting any suicidal or homicidal ideation, intention, and/or plan. He is not reporting any auditory or visual hallucinations. He is denying any paranoia or other delusions. The patient is not reporting any preoccupation with his feces or any other bizarre or nonsensical objects or things. As per discussion with staff, the patient has been calm and cooperative. The patient has also been noted to be sleeping well. The patient reports no issues with appetite. He has been adherent with his medications and is not reporting any significant side effects at this time. This provider spoke with the patient's father over the phone. The patient's father maintains that the patient requires inpatient psychiatric hospitalization due to concern for the patient's odd and bizarre behaviors. He states at this time, the patient does not appear to be ready because he feels that the patient continues to make bizarre statements over the phone. This has not been noted by staff. The patient's father was informed that the patient has been adherent with his medications and has been calm and cooperative with staff. He was informed that at this time, the patient is not presenting with any significant criteria (harm to self, harm to others, actively psychotic or manic, or inability to care for self) for an inpatient psychiatric hospitalization. MENTAL STATUS EXAM: General Appearance: Patient appears to be stated age is alert and cooperative and directable.Obese body habitus. Currently wearing a yoda hat. Behavior: Patient is calmly seated without any agitated behavior. Psychomotor activity is normal and he is less intrusive. Speech: Patient's speech is spontaneous, nonpressured, and with normal fluency and tone. Mood/Affect: Mood is "ready to go home!" Affect is bright, childlike, but euthymic. Suicidality/Homicidality: Patient denies having any suicidal or homicidal ideation intent or plan. Perceptions: Patient denies any visual hallucinations and denies any auditory hallucinations Though content/process: No delusional thought content is endorse today. Thought process appears to be linear and logical in conversation. Memory and concentration: AOX3, grossly intact for the purposes of this session Judgment and insight: Improved Vital Signs Temp 97.6 F 12/27/20 13:18 Pulse 99 12/27/20 13:18 Resp 16 12/27/20 13:18 BP 135/82 12/27/20 13:18 Pulse Ox 96 12/27/20 13:18 Intake & Output 12/26/20 12/27/20 12/27/20 18:59 06:59 18:59 Intake Total 200 Balance 200 Intake: Oral 200 Other: Voiding Method Toilet Toilet # Voids 3 3 ASSESSMENT: Bipolar disorder, manic episode, likely secondary to steroid-induced jennifer Suspect autism spectrum disorder Nicotine use Cannabis use PLAN: -At this time patient DOES NOT meet criteria for inpatient psychiatric admission. Patient tested negative for COVID as of 12/26/20. The patient curr ently is not endorsing any significant criteria for an inpatient psychiatric hospitalization. He is not reporting or presenting with any immediate risk of harm to self, harm to others, or is presenting as actively psychotic or manic. He has been calm and cooperative and adherent with his medications. -Patient is cleared psychiatrically for discharge. -Recommend outpatient psychiatric follow-up. The patient is currently open with outpatient psychiatric services through [facility]. -Would recommend the following medication changes/additions: Continue trazodone 100 mg by mouth at bedtime for insomnia Continue Invega 12 mg by mouth at bedtime for mood stabilization/psychosis Continue Haldol 5 mg IM every 6 hours when necessary for agitation. (Discontinue at discharge) Continue Ativan to 2 mg by mouth every 6 hours PRN for agitation. (Discontinue at discharge) Increase Tegretol XR to 400 mg by mouth twice daily for mood stabilization. -Psychiatry will sign off at this point. Please contact us or reconsult us if necessary.
--- NOTE | 2020-12-27 16:19 | P.DS ---
Providers Date of admission: 12/17/20 14:55 Expected date of discharge: 12/27/20 Attending physician: Ward Pereira MD Consults: 12/16/20 20:36 Consult Physician Stat Consulting Provider: Frenie Danielle Consult Reason/Comments: psychosis Do you want consulting provider notified?: Yes 12/19/20 08:24 Consult Physician Routine Consulting Provider: Chrystal Ya Consult Reason/Comments: covid, requiring oxygen Do you want consulting provider notified?: Yes Primary care physician: Mart Harris Hospital Course: Final diagnosis Acute COVID-19 bilateral interstitial pneumonia with acute hypoxic respiratory failure Manic reaction secondary to steroid usage Noncompliance with treatment Mild asthma, acute exacerbation elevated d-dimer without any evidence of pulmonary embolism Tachycardia Elevated AST, ALT Hypovolemic hyponatremia Mild diarrhea secondary to COVID-19 hypokalemia Acute psychosis possibly Elevated inflammatory markers of COVID-19 Morbid obesity with a BMI of 62.5 Obstructive sleep apnea history of attention deficit disorder, attention deficit hyperactivity disorder History of bipolar, schizophrenia history of continued ongoing nicotine dependence history of THC Full code Discharge disposition Patient is being discharged in a stable condition with guarded prognosis to home. Patient will follow-up with Dr. Harris in the outpatient setting upon discharge. Patient also instructed to follow-up with [facility] and continue psychiatric services with them in the outpatient setting with possible senior living placement once a bed is available. Total time taken is greater than 35 minutes. Hospital course This is a 20-year-old male who was admitted with COVID-19 pneumonia with an extensive past medical history of mental health issues and was being closely monitored. Patient is maintained on zinc and vitamins and will continue in the outpatient setting. Patient's repeat Covid testing 2 has been negative. Patient was being closely monitored by psychiatry as well and has been cleared for discharge by them with resources provided for community mental health and case management with community mental health working on possible placement at a senior living once a bed becomes available. Currently no reports of chest pain, worsening shortness of breath, or palpitations. Patient is afebrile. No reports of nausea or vomiting and patient is tolerating diet. Patient will be discharged home today. Guarded prognosis. On exam vital signs are stable. Cardio S1, S2 are muffled. Respiratory system shows diminished breath sounds at the bases with no wheezing or rhonchi noted. Abdomen is soft and nontender. Nervous system shows no focal deficits. Please refer to medication reconciliation sheet for a list of medications. Patient Condition at Discharge: Fair Plan - Discharge Summary Discharge Rx Participant: No New Discharge Prescriptions: New Paliperidone [Invega] 12 mg PO HS 30 Days #60 tab.er.24 Zinc Sulfate [Orazinc] 220 mg PO DAILY 30 Days #30 cap carBAMazepine [TEGretol XR] 400 mg PO BID 30 Days #60 tab.er.12h Acetaminophen Tab [Tylenol] 650 mg PO Q6HR PRN tab PRN Reason: Mild Pain Or Fever > 100.5 Ascorbic Acid [Vitamin C] 500 mg PO BID 30 Days #60 tab Continue Emtricitabine/Tenofovir (Tdf) [Truvada 200 mg-300 mg Tablet] 1 tab PO DAILY Albuterol Sulfate [Proair Hfa] 1 - 2 puff INHALATION RT-Q4H PRN PRN Reason: Shortness Of Breath Changed traZODone HCL [Desyrel] 100 mg PO HS 30 Days #30 cap Discontinued carBAMazepine [TEGretol XR] 600 mg PO Q12H Paliperidone [Invega] 9 mg PO HS Discharge Medication List Albuterol Sulfate [Proair Hfa] 1 - 2 puff INHALATION RT-Q4H PRN 12/16/20 [History] Emtricitabine/Tenofovir (Tdf) [Truvada 200 mg-300 mg Tablet] 1 tab PO DAILY 12/16/20 [History] Acetaminophen Tab [Tylenol] 650 mg PO Q6HR PRN tab 12/27/20 [Rx] Ascorbic Acid [Vitamin C] 500 mg PO BID 30 Days #60 tab 12/27/20 [Rx] Paliperidone [Invega] 12 mg PO HS 30 Days #60 tab.er.24 12/27/20 [Rx] Zinc Sulfate [Orazinc] 220 mg PO DAILY 30 Days #30 cap 12/27/20 [Rx] carBAMazepine [TEGretol XR] 400 mg PO BID 30 Days #60 tab.er.12h 12/27/20 [Rx] traZODone HCL [Desyrel] 100 mg PO HS 30 Days #30 cap 12/27/20 [Rx] Follow up Appointment(s)/Referral(s): Mart Harris DO [Primary Care Provider] - 01/02/21 2:20 pm (Appointment with [facility] at the [place] [facility]) Patient Instructions/Handouts: Coronavirus Disease 2019 (COVID-19) Activity/Diet/Wound Care/Special Instructions: Activity Limited until follow-up Follow-up with primary care provider upon discharge Follow-up with [facility] upon discharge Continue with medications as prescribed Continue current diet Discharge Disposition: HOME SELF-CARE
== END 2020-12-27 16:51 | disposition home or self-care (01) | DRG 177 ==
LOC: EC 18:16 → 4SSUR 22:31 → OBSVTOIN 12-17 14:55 → 4SSUR 12-18 23:46
PROVIDERS: ADMIT Internal Medicine; ATTEND Internal Medicine
PROC: XW033E5 Introduction of Remdesivir Anti-infective into Peripheral Vein, Percutaneous Approach, New Technology Group 5 (ICD-10-PCS; principal; 2020-12-17)
PROC: 5A09357 Assistance with Respiratory Ventilation, Less than 24 Consecutive Hours, Continuous Positive Airway Pressure (ICD-10-PCS; 2020-12-21)
DX: U07.1 COVID-19 (principal); J96.01 Acute respiratory failure with hypoxia; J12.82 Pneumonia due to coronavirus disease 2019; J45.901 Unspecified asthma with (acute) exacerbation; E87.1 Hypo-osmolality and hyponatremia; E87.2 Acidosis; Z68.44 Body mass index [BMI] 60.0-69.9, adult; G47.33 Obstructive sleep apnea (adult) (pediatric); Z99.89 Dependence on other enabling machines and devices; F90.9 Attention-deficit hyperactivity disorder, unspecified type; F25.0 Schizoaffective disorder, bipolar type; F17.210 Nicotine dependence, cigarettes, uncomplicated; E87.6 Hypokalemia; E66.01 Morbid (severe) obesity due to excess calories; R79.1 Abnormal coagulation profile; R00.0 Tachycardia, unspecified; E86.1 Hypovolemia; T38.0X5A Adverse effect of glucocorticoids and synthetic analogues, initial encounter; Z91.19 Patient's noncompliance with other medical treatment and regimen; Z79.899 Other long term (current) drug therapy
CPT/HCPCS: 36415; 71045; 80048; 80053; 80156; 80306; 81001; 82550; 83605; 83615; 84484; 85025; 85027; 85379; 85610; 85730; 86140; 87040; 87635; 87636; 93005; 96365; 96375; 99285

== ENCOUNTER 2022-11-13 16:54 | Emergency (ER) | payer OTHER ==
[2022-11-13 17:14] VITALS: TEMP 98.6
[2022-11-13 18:01] LABS: Amphetamine Screen,Urine Not Detected (NotDetected); Barbiturate Screen,Urine Not Detected (NotDetected); Benzodiazepines Screen,Urine Not Detected (NotDetected); Cocaine Screen,Urine Not Detected (NotDetected); Methadone Screen, Urine Not Detected (NotDetected); Opiate Screen,Urine Not Detected (NotDetected); Oxycodone Screen, Urine Not Detected (NotDetected); Phencyclidine Screen,Urine Not Detected (NotDetected); Tricyclic Antidepressant,Urine Not Detected (NotDetected); Urn Cannabinoid Scrn Detected (NotDetected)
--- NOTE | 2022-11-13 18:41 | ED ---
General Adult HPI - General Chief complaint: Psychiatric Symptoms Stated complaint: EPS eval Time Seen by Provider: 11/13/22 16:58 Source: patient, police, EMS, RN notes reviewed, old records reviewed Mode of arrival: EMS Limitations: no limitations - History of Present Illness Initial comments: Patient is a 21-year-old male who was brought by police for psychiatric petition. There is a quarter condition. This is located on the patient's chart. Patient does have a history of psychiatric illness. Patient becomes aggressive and violent at home. Has history of bipolar. Unknown if patient's compliant with medications patient states they think he is suicidal but he denies it. He denies suicidal ideations, attempts, plans. Denies any visual or auditory hallucinations. Denies any homicidal ideations, attempts, plans. Patient is mostly compliant. Has no other acute complaints at this time. Presents for psychiatric evaluation. - Related Data Home Medications Medication Instructions Recorded Confirmed Paliperidone Palmitate [Invega 117 mg IM Q30D 11/13/22 11/13/22 Sustenna] Paliperidone [Invega] 9 mg PO HS 11/13/22 11/13/22 buPROPion XL [Wellbutrin XL] 300 mg PO DAILY 11/13/22 11/13/22 carBAMazepine [carBAMazepine ER] 600 mg PO BID 11/13/22 11/13/22 metFORMIN HCL [Glucophage] 500 mg PO BID 11/13/22 11/13/22 Allergies Allergy/AdvReac Type Severity Reaction Status Date / Time No Known Allergies Allergy Verified 11/13/22 19:41 Review of Systems ROS Statement: Those systems with pertinent positive or pertinent negative responses have been documented in the HPI. Review of Systems: CONST: Denies fever EYES: Denies blurry vision ENT: Denies nasal congestion C/V: Denies Chest pain RESP: Denies shortness of breath GI: Denies abdominal pain : Denies dysuria SKIN: Denies rash. MSK: Denies joint pain. NEURO: Denies headache PSYCH: Denies suicidal and homicidal ideations/plans/attempts. Denies visual or auditory hallucinations. ROS Other: All systems not noted in ROS Statement are negative. Past Medical History Past Medical History: No Reported History Additional Past Medical History / Comment(s): Obesity, obstructive sleep apnea, History of Any Multi-Drug Resistant Organisms: None Reported Past Surgical History: No Surgical Hx Reported Past Anesthesia/Blood Transfusion Reactions: No Reported Reaction Past Psychological History: ADD/ADHD, Bipolar Smoking Status: Former smoker Past Alcohol Use History: None Reported Past Drug Use History: Marijuana General Exam - General Exam Comments Initial Comments: General: Appears in no acute distress. HEAD: Normal with no signs of head trauma. EYES: PERRLA, EOMI, conjunctiva normal, no discharge. ENT: Hearing grossly intact, normal oropharynx. RESPIRATORY: Clear breath sounds bilaterally. No wheezes, rales, or rhonchi. C/V: Regular rate and rhythm. S1 and S2 auscultated, no edema, peripheral pulses 2+ and intact throughout ABD: Abd is soft, nontender, nondistended EXT: Normal range of motion, no obvious deformity SKIN: No rashes or lesions observed on exposed skin. NEURO: Alert and Oriented 4. Limitations: no limitations Course Vital Signs 11/13/22 17:01 Temperature 98.6 F Pulse Rate 85 Respiratory 18 Rate Blood Pressure 138/80 O2 Sat by Pulse 97 Oximetry Medical Decision Making - Medical Decision Making Was pt. sent in by a medical professional or institution (, PA, CAR HOSTLER, urgent care, hospital, or fci...) When possible be specific @ -No Did you speak to anyone other than the patient for history (EMS, parent, family, police, friend...)? What history was obtained from this source @ -No Did you review nursing and triage notes (agree or disagree)? Why? @ -I reviewed the patient's petition which is located on his chart. Was a court ordered petition. Were old charts reviewed (outside hosp., previous admission, EMS record, old EKG, old radiological studies, urgent care reports/EKG's, fci records)? Report findings @ -No old charts were reviewed Differential Diagnosis (chest pain, altered mental status, abdominal pain women, abdominal pain men, vaginal bleeding, weakness, fever, dyspnea, syncope, headache, dizziness, GI bleed, back pain, seizure, CVA, palpatations, mental health, musculoskeletal)? @ -Differential Mental Health Depression, anxiety, bipolar, psychosis, schizophrenia, borderline personality, situational depression, adjustment disorder, behavioral disorder, brain tumor, malingering, substance abuse, encephalopathy, medication reaction, dementia, hypothyroidism, degenerative neurologic disorder, lupus.... This is not meant to be all-inclusive list EKG interpreted by me (3pts min.). @ -None done X-rays interpreted by me (1pt min.). @ -None done CT interpreted by me (1pt min.). @ -None done U/S interpreted by me (1pt. min.). @ -None done What testing was considered but not performed or refused? (CT, X-rays, U/S, labs)? Why? @ -None What meds were considered but not given or refused? Why? @ -None Did you discuss the management of the patient with other professionals (professionals i.e. , PA, [employer] H[employer]ER, lab, RT, psych nurse, social work case manager, inspector radar and electronics, teacher, officer captain, case preparer and liner)? Give summary @ -EPS notified that patient medically cleared for psych eval. YUNG Padron notified me the patient will be admitted to inpatient psych. Was smoking cessation discussed for >3mins.? @ -No Was critical care preformed (if so, how long)? @ -No Were there social determinants of health that impacted care today? How? (Homelessness, low income, unemployed, alcoholism, drug addiction, transportation, low edu. Level, literacy, decrease access to med. care, alf, rehab)? @ -No Was there de-escalation of care discussed even if they declined (Discuss DNR or withdrawal of care, Hospice)? DNR status @ -No What co-morbidities impacted this encounter? (DM, HTN, Smoking, COPD, CAD, Cancer, CVA, ARF, Chemo, Hep., AIDS, mental health diagnosis, sleep apnea, morbid obesity)? @ -History of bipolar disease Was patient admitted / discharged? Hospital course, mention meds given and route, prescriptions, significant lab abnormalities, going to OR and other pertinent info. @ -Based on the patient's presentation and physical exam, do believe that he requires psychiatric evaluation. Was placed in green scrubs. SItter was ordered. BAT is 0. UDS is pending. Vital signs are within acceptable limits. At this time patient is medically cleared for evaluation by psychiatry. Dispo sition is pending EPS evaluation. EPS was notified. EPS evaluated the patient. Nereida notified me that the patient will be admitted. Clinical certificate was completed by myself. The plan originally was to admit the patient inpatient psychiatry here, however patient's weight does not allow him to stay here as he is too large for the inpatient beds upstairs. He requires transfer at this time. EPS Nereida updated me. Undiagnosed new problem with uncertain prognosis? @ -No Drug Therapy requiring intensive monitoring for toxicity (Heparin, Nitro, Insulin, Cardizem)? @ -No Were any procedures done? @ -No Diagnosis/symptom? @ -Encounter for psychiatric evaluation, history of bipolar disorder Acute, or Chronic, or Acute on Chronic? @ -Acute on chronic Uncomplicated (without systemic symptoms) or Complicated (systemic symptoms)? @ -Uncomplicated Side effects of treatment? @ -No Exacerbation, Progression, or Severe Exacerbation? @ -No Poses a threat to life or bodily function? How? (Chest pain, [place], [place], pneumonia, PE, COPD, DKA, ARF, appy, cholecystitis, CVA, Diverticulitis, Homicidal, Suicidal, threat to staff... and all critical care pts) @ -Yes, per petition patient is suicidal and therefore is a threat to himself. - Lab Data Lab Results 11/13/22 11/13/22 Range/Units 17:38 18:50 Urine Opiates Screen Not Detected (NotDetected) Ur Oxycodone Screen Not Detected (NotDetected) Urine Methadone Screen Not Detected (NotDetected) Ur Propoxyphene Screen Not Detected (NotDetected) Ur Barbiturates Screen Not Detected (NotDetected) U Tricyclic Antidepress Not Detected (NotDetected) Ur Phencyclidine Scrn Not Detected (NotDetected) Ur Amphetamines Screen Not Detected (NotDetected) U Methamphetamines Scrn Not Detected (NotDetected) U Benzodiazepines Scrn Not Detected (NotDetected) Urine Cocaine Screen Not Detected (NotDetected) U Marijuana (THC) Screen Detected H (NotDetected) Coronavirus (PCR) Not Detected (Not Detectd) Disposition Clinical Impression: Encounter for psychiatric assessment, Suicidal ideation Disposition: TRANSFER TO PSYCH HOSP/UNIT Condition: Stable Referrals: Mart Loyd DO [Primary Care Provider] - 1-2 days
[2022-11-13] MEDS ORDERED: LORazepam 2 MG/ML INJ IM PRN (20:17)
[2022-11-13] MEDS ORDERED: PALIPERIDONE PALMITATE 117 MG/0.75 ML IM SCH (20:30)
[2022-11-13] MEDS ORDERED: PALIPERIDONE 3 MG TAB.ER.24 PO SCH (21:00)
[2022-11-13] MEDS: carBAMazepine 300 MG CPMP.12HR PO SCH (21:50)
[2022-11-13] MEDS: metFORMIN 500 MG TAB PO SCH (21:51)
[2022-11-14 01:09] LABS: Basophils % (A) 0 %; Eosinophils # (A) 0.2 k/uL (0-0.7); Eosinophils % (A) 2 %; HCT 43.7 % (39.0-53.0); HGB 14.8 gm/dL (13.0-17.5); Lymphocytes # (A) 2.8 k/uL (1.0-4.8); Lymphocytes % (A) 24 %; MCH 29.2 pg (25.0-35.0); MCHC 33.8 g/dL (31.0-37.0); MCV 86.5 fL (80.0-100.0); Mean Platelet Volume 7.7; Monocytes # (A) 0.4 k/uL (0-1.0); Monocytes % (A) 4 %; Neutrophils # (A) 8.1 k/uL (1.3-7.7); Neutrophils % (A) 69 %; Platelet Count 244 k/uL (150-450); RBC 5.05 m/uL (4.30-5.90); RDW 13.4 % (11.5-15.5); WBC 11.7 k/uL (3.8-10.6)
[2022-11-14 01:18] LABS: ALT 49 U/L (4-49); AST 34 U/L (17-59); African American GFR (CKD) >90 (>60 ml/min/1.73 sqM); Albumin 4.9 g/dL (3.5-5.0); Alkaline Phosphatase 89 U/L (38-126); Anion Gap 12 mmol/L; Blood Urea Nitrogen 11 mg/dL (9-20); Calcium 9.8 mg/dL (8.4-10.2); Carbon Dioxide 24 mmol/L (22-30); Chloride 101 mmol/L (98-107); Glucose 128 mg/dL (74-99); Non-African American GFR(CKD) >90 (>60 ml/min/1.73 sqM); Potassium 4.2 mmol/L (3.5-5.1); Sodium 137 mmol/L (137-145); Total Bilirubin 0.6 mg/dL (0.2-1.3); Total Protein 7.8 g/dL (6.3-8.2)
[2022-11-14] MEDS: metFORMIN 500 MG TAB PO SCH (08:50)
[2022-11-14] MEDS: carBAMazepine 300 MG CPMP.12HR PO SCH (08:51)
[2022-11-14 08:53] VITALS: BP 158/98; PULSE 102; RESP 20
[2022-11-14] MEDS ORDERED: buPROPion XL 300 MG TAB.ER.24H PO SCH (09:00)
== END 2022-11-14 09:40 ==
LOC: EC 16:54
DX: Z00.8 Encounter for other general examination (principal); R45.851 Suicidal ideations; F31.9 Bipolar disorder, unspecified; Z87.891 Personal history of nicotine dependence; F12.90 Cannabis use, unspecified, uncomplicated; Z20.822 Contact with and (suspected) exposure to COVID-19
CPT/HCPCS: 82075; 36415; 80053; 85025; 80306; 87635; 99285; 96372; J2060

== ENCOUNTER 2023-01-04 13:51 | Emergency (ER) | payer OTHER ==
--- NOTE | 2023-01-04 14:28 | ED ---
General Adult HPI - General Source: patient Mode of arrival: EMS <Familia Zhao - Last Filed: 01/06/23 18:29> <Lonnie Manzano - Last Filed: 01/09/23 21:54> - General Chief complaint: Psychiatric Symptoms Stated complaint: mental health Time Seen by Provider: 01/04/23 14:05 - History of Present Illness Initial comments: Dictation was produced using [employer] dictation software. please excuse any grammatical, word or spelling errors. Chief Complaint: 22-year-old male presents to the ER for mental health evaluation History of Present Illness: 22-year-old male he states that he was sent here to have mental health evaluation. He reports that his father called EMS for transfer to the ER for mental evaluation. Patient denies any suicidal or homicidal ideation. Denies any visual or auditory hallucinations. He states that "my dad called ems because I'm brito and he is a homophobe." The ROS documented in this emergency department record has been reviewed and confirmed by me. Those systems with pertinent positive or negative responses have been documented in the HPI. All other systems are other negative and/or no ncontributory. (Familia Zhao) - Related Data Home Medications Medication Instructions Recorded Confirmed buPROPion XL [Wellbutrin XL] 300 mg PO DAILY 11/13/22 01/04/23 carBAMazepine [carBAMazepine ER] 600 mg PO BID 11/13/22 01/04/23 metFORMIN HCL [Glucophage] 500 mg PO BID 11/13/22 01/04/23 Paliperidone IM [Invega Sustenna] 156 mg IM Q30D 01/04/23 01/04/23 Propranolol [Inderal] 10 mg PO BID PRN 01/04/23 01/04/23 traZODone HCL 200 mg PO HS 01/04/23 01/04/23 Allergies Allergy/AdvReac Type Severity Reaction Status Date / Time No Known Allergies Allergy Verified 01/04/23 15:59 Review of Systems ROS Other: All systems not noted in ROS Statement are negative. <Familia Zhao - Last Filed: 01/06/23 18:29> ROS Other: All systems not noted in ROS Statement are negative. <Lonnie Manzano - Last Filed: 01/09/23 21:54> ROS Statement: Those systems with pertinent positive or pertinent negative responses have been documented in the HPI. Past Medical History Past Medical History: No Reported History Additional Past Medical History / Comment(s): Obesity, obstructive sleep apnea, History of Any Multi-Drug Resistant Organisms: None Reported Past Surgical History: No Surgical Hx Reported Past Anesthesia/Blood Transfusion Reactions: No Reported Reaction Past Psychological History: ADD/ADHD, Bipolar Smoking Status: Former smoker Past Alcohol Use History: None Reported Past Drug Use History: Marijuana <Familia Zhao - Last Filed: 01/06/23 18:29> General Exam <Familia Zhao - Last Filed: 01/06/23 18:29> - General Exam Comments Initial Comments: PHYSICAL EXAM: General Impression: Alert and oriented x3, not in acute distress HEENT: Normocephalic atraumatic, extra-ocular movements intact, pupils equal and reactive to light bilaterally, mucous membranes moist. Cardiovascular: Heart regular rate and rhythm Chest: Able to complete full sentences, no retractions, no tachypnea Musculoskeletal: Pulses present and equal in all extremities, no peripheral edema Motor: no focal deficits noted Neurological: CN II-XII grossly intact, no focal motor or sensory deficits noted Skin: Intact with no visualized rashes Psych: Aggressive (Familia Zhao) Course Vital Signs 01/04/23 01/05/23 01/05/23 14:04 05:00 07:59 Temperature 98.7 F 98.2 F 97.9 F Pulse Rate 86 92 92 Respiratory 18 16 20 Rate Blood Pressure 144/95 153/91 151/93 O2 Sat by Pulse 95 98 95 Oximetry 01/05/23 01/06/23 01/06/23 15:26 11:11 14:25 Temperature Pulse Rate 104 H Respiratory 18 18 20 Rate Blood Pressure 125/84 O2 Sat by Pulse 95 Oximetry 01/07/23 01/07/23 01/08/23 00:30 12:53 00:25 Temperature 97.7 F Pulse Rate 84 95 Respiratory 16 20 16 Rate Blood Pressure 120/84 126/84 O2 Sat by Pulse 95 96 Oximetry 01/08/23 01/09/23 01/09/23 08:45 15:00 18:06 Temperature 98.1 F 98 F Pulse Rate 90 80 64 Respiratory 20 18 16 Rate Blood Pressure 144/83 140/80 154/95 O2 Sat by Pulse 97 98 96 Oximetry Medical Decision Making - Lab Data Result diagrams: 01/04/23 16:50 01/04/23 16:50 <Familia Zaho - Last Filed: 01/06/23 18:29> - Lab Data Result diagrams: 01/04/23 16:50 01/04/23 16:50 <Lonnie Manzano - Last Filed: 01/09/23 21:54> - Medical Decision Making Was pt. sent in by a medical professional or institution (, PA, BAKERY TEAM LEADER, urgent care, hospital, or snf...) When possible be specific @ -No Did you speak to anyone other than the patient for history (EMS, parent, family, police, friend...)? What history was obtained from this source @ -EMS reports the patient here for mental health evaluation Did you review nursing and triage notes (agree or disagree)? Why? @ -I reviewed and agree with nursing and triage notes Were old charts reviewed (outside hosp., previous admission, EMS record, old EKG, old radiological studies, urgent care reports/EKG's, snf records)? Report findings @ -No old charts were reviewed Differential Diagnosis (chest pain, altered mental status, abdominal pain women, abdominal pain men, vaginal bleeding, musculoskeletal, weakness, fever, dyspnea, syncope, headache, dizziness, GI bleed, back pain, seizure, CVA, palpatations, mental health)? @ -Differential Mental Health: Depression, anxiety, bipolar, psychosis, schizophrenia, borderline personality, situational depression, adjustment disorder, behavioral disorder, brain tumor, malingering, substance abuse, encephalopathy, medication reaction, dementia, hypothyroidism, degenerative neurologic disorder, lupus.... This is not meant to be all-inclusive list EKG interpreted by me (3pts min.). @ -None done X-rays interpreted by me (1pt min.). @ -None done CT interpreted by me (1pt min.). @ -None done U/S interpreted by me (1pt. min.). @ -None done What testing was considered but not performed or refused? (CT, X-rays, U/S, labs)? Why? @ -None What meds were considered but not given or refused? Why? @ -None Did you discuss the management of the patient with other professionals (professionals i.e. , PA, BAKERY TEAM LEADER, lab, RT, psych nurse, licensed master social worker, driver/refuse collector, teacher, medical officer psychiatry, rn field case manager)? Give summary @ -No Was smoking cessation discussed for >3mins.? @ -No Was critical care preformed (if so, how long)? @ -No Were there social determinants of health that impacted care today? How? (Homelessness, low income, unemployed, alcoholism, drug addiction, transportation, low edu. Level, literacy, decrease access to med. care, fpc, rehab)? @ -No Was there de-escalation of care discussed even if they declined (Discuss DNR or withdrawal of care, Hospice)? DNR status @ -No What co-morbidities impacted this encounter? (DM, HTN, Smoking, COPD, CAD, Cancer, CVA, ARF, Chemo, Hep., AIDS, mental health diagnosis, sleep apnea, morbid obesity)? @ -None Was patient admitted / discharged? Hospital course, mention meds given and route, prescriptions, significant lab abnormalities, going to OR and other pertinent info. @ -22-year-old male presents emergency department for mental health evaluation is showing some signs of psychosis. he is medically cleared for EPS evaluation. Patient is signed out to oncoming physician for follow-up of EPS recomme ndations. I was notified by EPS nurse that patient is above the weight limit for mental health unit beds. patient will be transferred because of this. pending transfer. Undiagnosed new problem with uncertain prognosis? @ -No Drug Therapy requiring intensive monitoring for toxicity (Heparin, Nitro, Insulin, Cardizem)? @ -No Were any procedures done? @ -No Diagnosis/symptom? Acute, or Chronic, or Acute on Chronic? Uncomplicated (without systemic symptoms) or Complicated (systemic symptoms)? @ -1. Mental health evaluation Side effects of treatment? @ -No Exacerbation, Progression, or Severe Exacerbation? @ -No Poses a threat to life or bodily function? How? (Chest pain, USA, [place], pneumonia, PE, COPD, DKA, ARF, appy, cholecystitis, CVA, Diverticulitis, Homicidal, Suicidal, threat to staff... and all critical care pts) @ -yes (Familia Zhao) Patient was seen by mental health services with plans for discharge. I did speak with mental health nurse. Patient was reevaluated by myself. Patient has been resting comfortably in bed. Patient denies suicidal ideation and does contract for safety. Patient states he believes he was hypomanic earlier when he got here however feels much better now. Patient is comfortable being discharged. Patient agrees with follow-up. (Lonnie Manzano) - Lab Data Lab Results 01/04/23 01/04/23 01/04/23 Range/Units 16:43 16:43 16:50 WBC 10.4 (3.8-10.6) k/uL RBC 4.78 (4.30-5.90) m/uL Hgb 14.1 (13.0-17.5) gm/dL Hct 43.0 (39.0-53.0) % MCV 89.9 (80.0-100.0) fL MCH 29.4 (25.0-35.0) pg MCHC 32.7 (31.0-37.0) g/dL RDW 13.7 (11.5-15.5) % Plt Count 234 (150-450) k/uL MPV 7.1 Neutrophils % 72 % Lymphocytes % 20 % Monocytes % 4 % Eosinophils % 3 % Basophils % 0 % Neutrophils # 7.5 (1.3-7.7) k/uL Lymphocytes # 2.1 (1.0-4.8) k/uL Monocytes # 0.4 (0-1.0) k/uL Eosinophils # 0.3 (0-0.7) k/uL Basophils # 0.0 (0-0.2) k/uL Sodium (137-145) mmol/L Potassium (3.5-5.1) mmol/L Chloride (98-107) mmol/L Carbon Dioxide (22-30) mmol/L Anion Gap mmol/L BUN (9-20) mg/dL Creatinine (0.66-1.25) mg/dL Est GFR (CKD-EPI)AfAm (>60 ml/min/1.73 sqM) Est GFR (CKD-EPI)NonAf (>60 ml/min/1.73 sqM) Glucose (74-99) mg/dL Calcium (8.4-10.2) mg/dL Total Bilirubin (0.2-1.3) mg/dL AST (17-59) U/L ALT (4-49) U/L Alkaline Phosphatase (38-126) U/L Total Protein (6.3-8.2) g/dL Albumin (3.5-5.0) g/dL Urine Color Yellow Urine Appearance Cloudy (Clear) Urine pH 6.0 (5.0-8.0) Ur Specific [place] 1.022 (1.001-1.035) Urine Protein Negative (Negative) Urine Glucose (UA) Negative (Negative) Urine Ketones Negative (Negative) Urine Blood Negative (Negative) Urine Nitrite Negative (Negative) Urine Bilirubin Negative (Negative) Urine Urobilinogen <2.0 (<2.0) mg/dL Ur Leukocyte Esterase Negative (Negative) Urine RBC <1 (0-5) /hpf Urine WBC 2 (0-5) /hpf Ur Squamous Epith Cells 1 (0-4) /hpf Urine Bacteria Rare H (None) /hpf Urine Mucus Rare H (None) /hpf Urine Opiates Screen Not Detected (NotDetected) Ur Oxycodone Screen Not Detected (NotDetected) Urine Methadone Screen Not Detected (NotDetected) Ur Propoxyphene Screen Not Detected (NotDetected) Ur Barbiturates Screen Not Detected (NotDetected) U Tricyclic Antidepress Not Detected (NotDetected) Ur Phencyclidine Scrn Not Detected (NotDetected) Ur Amphetamines Screen Not Detected (NotDetected) U Methamphetamines Scrn Not Detected (NotDetected) U Benzodiazepines Scrn Not Detected (NotDetected) Urine Cocaine Screen Not Detected (NotDetected) U Marijuana (THC) Screen Detected H (NotDetected) Coronavirus (PCR) (Not Detectd) 01/04/23 01/04/23 Range/Units 16:50 16:50 WBC (3.8-10.6) k/uL RBC (4.30-5.90) m/uL Hgb (13.0-17.5) gm/dL Hct (39.0-53.0) % MCV (80.0-100.0) fL MCH (25.0-35.0) pg MCHC (31.0-37.0) g/dL RDW (11.5-15.5) % Plt Count (150-450) k/uL MPV Neutrophils % % Lymphocytes % % Monocytes % % Eosinophils % % Basophils % % Neutrophils # (1.3-7.7) k/uL Lymphocytes # (1.0-4.8) k/uL Monocytes # (0-1.0) k/uL Eosinophils # (0-0.7) k/uL Basophils # (0-0.2) k/uL Sodium 137 (137-145) mmol/L Potassium 4.2 (3.5-5.1) mmol/L Chloride 99 (98-107) mmol/L Carbon Dioxide 27 (22-30) mmol/L Anion Gap 11 mmol/L BUN 14 (9-20) mg/dL Creatinine 0.60 L (0.66-1.25) mg/dL Est GFR (CKD-EPI)AfAm >90 (>60 ml/min/1.73 sqM) Est GFR (CKD-EPI)NonAf >90 (>60 ml/min/1.73 sqM) Glucose 111 H (74-99) mg/dL Calcium 9.3 (8.4-10.2) mg/dL Total Bilirubin 0.5 (0.2-1.3) mg/dL AST 35 (17-59) U/L ALT 42 (4-49) U/L Alkaline Phosphatase 86 (38-126) U/L Total Protein 7.2 (6.3-8.2) g/dL Albumin 4.5 (3.5-5.0) g/dL Urine Color Urine Appearance (Clear) Urine pH (5.0-8.0) Ur Specific [place] (1.001-1.035) Urine Protein (Negative) Urine Glucose (UA) (Negative) Urine Ketones (Negative) Urine Blood (Negative) Urine Nitrite (Negative) Urine Bilirubin (Negative) Urine Urobilinogen (<2.0) mg/dL Ur Leukocyte Esterase (Negative) Urine RBC (0-5) /hpf Urine WBC (0-5) /hpf Ur Squamous Epith Cells (0-4) /hpf Urine Bacteria (None) /hpf Urine Mucus (None) /hpf Urine Opiates Screen (NotDetected) Ur Oxycodone Screen (NotDetected) Urine Methadone Screen (NotDetected) Ur Propoxyphene Screen (NotDetected) Ur Barbiturates Screen (NotDetected) U Tricyclic Antidepress (NotDetected) Ur Phencyclidine Scrn (NotDetected) Ur Amphetamines Screen (NotDetected) U Methamphetamines Scrn (NotDetected) U Benzodiazepines Scrn (NotDetected) Urine Cocaine Screen (NotDetected) U Marijuana (THC) Screen (NotDetected) Coronavirus (PCR) Not Detected (Not Detectd) Disposition <Familia Zhao - Last Filed: 01/06/23 18:29> Is patient prescribed a controlled substance at d/c from ED?: No Time of Disposition: 21:53 <Lonnie Manzano - Last Filed: 01/09/23 21:54> Clinical Impression: Hypomanic episode Disposition: HOME SELF-CARE Condition: Stable Instructions (If sedation given, give patient instructions): Bipolar Disorder (ED), Mood Disorders (ED) Additional Instructions: Please do follow-up with your primary care physician and mental health provider in the next couple days for recheck. Return for thoughts of self-harm, not functioning well, worsening symptoms or other concerns. Please use medication as directed. Referrals: Timo Monteiro MD [STAFF PHYSICIAN] - 1-2 days
[2023-01-04] MEDS ORDERED: ALPRAZolam 0.5 MG TAB PO STA (16:20)
[2023-01-04 16:56] LABS: Basophils % (A) 0 %; Eosinophils # (A) 0.3 k/uL (0-0.7); Eosinophils % (A) 3 %; HGB 14.1 gm/dL (13.0-17.5); Lymphocytes # (A) 2.1 k/uL (1.0-4.8); Lymphocytes % (A) 20 %; MCH 29.4 pg (25.0-35.0); MCHC 32.7 g/dL (31.0-37.0); MCV 89.9 fL (80.0-100.0); Mean Platelet Volume 7.1; Monocytes # (A) 0.4 k/uL (0-1.0); Monocytes % (A) 4 %; Neutrophils # (A) 7.5 k/uL (1.3-7.7); Neutrophils % (A) 72 %; Platelet Count 234 k/uL (150-450); RBC 4.78 m/uL (4.30-5.90); RDW 13.7 % (11.5-15.5); WBC 10.4 k/uL (3.8-10.6)
[2023-01-04 17:10] LABS: ALT 42 U/L (4-49); AST 35 U/L (17-59); African American GFR (CKD) >90 (>60 ml/min/1.73 sqM); Albumin 4.5 g/dL (3.5-5.0); Alkaline Phosphatase 86 U/L (38-126); Anion Gap 11 mmol/L; Blood Urea Nitrogen 14 mg/dL (9-20); Calcium 9.3 mg/dL (8.4-10.2); Carbon Dioxide 27 mmol/L (22-30); Chloride 99 mmol/L (98-107); Glucose 111 mg/dL (74-99); Non-African American GFR(CKD) >90 (>60 ml/min/1.73 sqM); Potassium 4.2 mmol/L (3.5-5.1); Sodium 137 mmol/L (137-145); Total Bilirubin 0.5 mg/dL (0.2-1.3); Total Protein 7.2 g/dL (6.3-8.2)
[2023-01-04 17:22] LABS: Amphetamine Screen,Urine Not Detected (NotDetected); Appearance,Urine Cloudy (Clear); Bacteria,Urine Rare /hpf; Benzodiazepines Screen,Urine Not Detected (NotDetected); Bilirubin,Urine Negative (Negative); Blood,Urine Negative (Negative); Cocaine Screen,Urine Not Detected (NotDetected); Color,Urine Yellow; Glucose,Urine (UA) Negative (Negative); Ketones,Urine Negative (Negative); Leukocyte Esterase,Urine Negative (Negative); Methadone Screen, Urine Not Detected (NotDetected); Mucus,Urine Rare /hpf; Nitrite,Urine Negative (Negative); Opiate Screen,Urine Not Detected (NotDetected); Phencyclidine Screen,Urine Not Detected (NotDetected); Protein,Urine Negative (Negative); RBC,Urine <1 /hpf (0-5); Specific Gravity,Urine 1.022 (1.001-1.035); Squamous Epithelial Cell,Urine 1 /hpf (0-4); Tricyclic Antidepressant,Urine Not Detected (NotDetected); Urn Cannabinoid Scrn Detected (NotDetected); Urobilinogen,Urine <2.0 mg/dL (<2.0); WBC,Urine 2 /hpf (0-5)
[2023-01-04 17:23] LABS: Barbiturate Screen,Urine Not Detected (NotDetected); Oxycodone Screen, Urine Not Detected (NotDetected)
[2023-01-04] MEDS: metFORMIN 500 MG TAB PO SCH (20:53)
[2023-01-04] MEDS: carBAMazepine 300 MG CPMP.12HR PO SCH (20:54)
[2023-01-04] MEDS: traZODone HCL 100 MG TAB PO SCH (20:54)
[2023-01-04] MEDS ORDERED: LORazepam 1 MG TAB PO STA (23:37)
[2023-01-05] MEDS ORDERED: LORazepam 1 MG TAB PO STA (00:21)
[2023-01-05] MEDS: buPROPion XL 300 MG TAB.ER.24H PO SCH (08:45)
[2023-01-05] MEDS: metFORMIN 500 MG TAB PO SCH ×2 (08:46→21:18)
[2023-01-05] MEDS: carBAMazepine 300 MG CPMP.12HR PO SCH ×2 (09:29→21:18)
[2023-01-05] MEDS: traZODone HCL 100 MG TAB PO SCH (21:18)
[2023-01-06] MEDS: buPROPion XL 300 MG TAB.ER.24H PO SCH (09:24)
[2023-01-06] MEDS: carBAMazepine 300 MG CPMP.12HR PO SCH ×2 (09:24→22:02)
[2023-01-06] MEDS: metFORMIN 500 MG TAB PO SCH ×2 (09:24→21:41)
[2023-01-06] MEDS ORDERED: LORazepam 1 MG TAB PO PRN (09:39)
[2023-01-06] MEDS ORDERED: LORazepam 1 MG TAB PO STA (09:39)
[2023-01-06] MEDS ORDERED: ZIPRASIDONE 20 MG VIAL IM STA (13:12)
[2023-01-06] MEDS: traZODone HCL 100 MG TAB PO SCH (21:41)
[2023-01-07] MEDS: PROPRANOLOL 10 MG TAB PO PRN (00:33)
[2023-01-07] MEDS: buPROPion XL 300 MG TAB.ER.24H PO SCH (08:15)
[2023-01-07] MEDS: carBAMazepine 300 MG CPMP.12HR PO SCH ×2 (08:16→20:27)
[2023-01-07] MEDS: metFORMIN 500 MG TAB PO SCH ×2 (08:17→20:27)
[2023-01-07] MEDS ORDERED: LORazepam 1 MG TAB PO STA (15:02)
[2023-01-07] MEDS: traZODone HCL 100 MG TAB PO SCH (20:27)
[2023-01-08] MEDS: carBAMazepine 300 MG CPMP.12HR PO SCH ×2 (09:41→21:04)
[2023-01-08] MEDS: buPROPion XL 300 MG TAB.ER.24H PO SCH (09:41)
[2023-01-08] MEDS: metFORMIN 500 MG TAB PO SCH ×2 (09:41→21:03)
[2023-01-08] MEDS: traZODone HCL 100 MG TAB PO SCH (21:03)
[2023-01-08] MEDS: PROPRANOLOL 10 MG TAB PO PRN (21:03)
[2023-01-09] MEDS: metFORMIN 500 MG TAB PO SCH ×2 (09:11→22:08)
[2023-01-09] MEDS: buPROPion XL 300 MG TAB.ER.24H PO SCH ×2 (09:12→22:13)
[2023-01-09] MEDS: carBAMazepine 300 MG CPMP.12HR PO SCH ×2 (09:12→22:08)
[2023-01-09 18:07] VITALS: RESP 16; TEMP 98
[2023-01-09] MEDS: traZODone HCL 100 MG TAB PO SCH (22:13)
[2023-01-10 03:14] VITALS: BP 145/85; PULSE 65
[2023-01-30] MEDS ORDERED: PALIPERIDONE IM 156 MG/ML SYG IM SCH (09:00)
== END 2023-01-09 22:19 | disposition home or self-care (01) ==
LOC: EC 13:51
DX: F30.8 Other manic episodes (principal); G47.33 Obstructive sleep apnea (adult) (pediatric); Z79.84 Long term (current) use of oral hypoglycemic drugs; Z79.899 Other long term (current) drug therapy; Z87.891 Personal history of nicotine dependence; Z20.822 Contact with and (suspected) exposure to COVID-19
CPT/HCPCS: 36415; 80053; 80306; 81001; 82075; 85025; 87635; 99285

== ENCOUNTER 2023-01-11 10:11 | Emergency (ER) | payer OTHER ==
[2023-01-11 10:18] VITALS: RESP 18
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
[2023-01-11] MEDS ORDERED: PALIPERIDONE IM 234 MG/1.5 ML SYG IM STA (12:30)
[2023-01-11] MEDS ORDERED: ALPRAZolam 1 MG TAB PO STA (16:39)
[2023-01-11] MEDS ORDERED: PROPRANOLOL 10 MG TAB PO PRN (17:11)
[2023-01-11] MEDS ORDERED: OLANZapine 10 MG VIAL IM STA (17:11)
[2023-01-11] MEDS ORDERED: traZODone HCL 100 MG TAB PO SCH (21:00)
[2023-01-11] MEDS: carBAMazepine 300 MG CPMP.12HR PO SCH (22:24)
[2023-01-11 23:06] LABS: Appearance,Urine Clear (Clear); Bilirubin,Urine Negative (Negative); Blood,Urine Negative (Negative); Color,Urine Yellow; Glucose,Urine (UA) Negative (Negative); Ketones,Urine Negative (Negative); Leukocyte Esterase,Urine Negative (Negative); Nitrite,Urine Negative (Negative); Protein,Urine Negative (Negative); Specific Gravity,Urine 1.018 (1.001-1.035); Urobilinogen,Urine <2.0 mg/dL (<2.0)
[2023-01-11] MEDS: metFORMIN 500 MG TAB PO SCH (23:07)
[2023-01-11 23:36] LABS: Amphetamine Screen,Urine Not Detected (NotDetected); Barbiturate Screen,Urine Not Detected (NotDetected); Benzodiazepines Screen,Urine Detected (NotDetected); Cocaine Screen,Urine Not Detected (NotDetected); Methadone Screen, Urine Not Detected (NotDetected); Opiate Screen,Urine Not Detected (NotDetected); Oxycodone Screen, Urine Not Detected (NotDetected); Phencyclidine Screen,Urine Not Detected (NotDetected); Tricyclic Antidepressant,Urine Not Detected (NotDetected)
[2023-01-11 23:37] LABS: Urn Cannabinoid Scrn Detected (NotDetected)
[2023-01-12] MEDS ORDERED: buPROPion XL 300 MG TAB.ER.24H PO SCH (09:00)
[2023-01-12] MEDS: metFORMIN 500 MG TAB PO SCH (10:05)
[2023-01-12] MEDS: carBAMazepine 300 MG CPMP.12HR PO SCH (10:06)
[2023-01-12 17:10] VITALS: BP 144/68; PULSE 94; TEMP 98.6
== END 2023-01-12 17:09 | disposition home or self-care (01) ==
LOC: EC 10:11
DX: F30.8 Other manic episodes (principal); Z87.891 Personal history of nicotine dependence; F12.90 Cannabis use, unspecified, uncomplicated; Z79.899 Other long term (current) drug therapy
CPT/HCPCS: 82075; 36415; 85025; 81003; 80306; 99285; 96372 ×2; J2426

== ENCOUNTER 2023-01-14 17:21 | Emergency (ER) | payer OTHER ==
--- NOTE | 2023-01-14 17:39 | ED ---
General Adult HPI - General Stated complaint: mental health Time Seen by Provider: 01/14/23 17:30 - History of Present Illness Initial comments: Dictation was produced using [employer] dictation software. please excuse any grammatical, word or spelling errors. Chief Complaint: 22-year-old male past medical history of psychiatric illness presents to the ER for [facility] for transfer to inpatient psychiatric facility History of Present Illness: Patient is a 22-year-old obese male. His recent psychosis. Was seen in emergency department couple weeks ago for psychosis. Patient had community mental health appointment today. He was sent into the emergency department from [facility] appointment due to concerns of patient's well-being. Patient's history bipolar disease and anemia. Patient has any complaints at this time. He is agreeable with transfer to [facility] denies any suicidal or homicidal ideation. Denies any visual or auditory hallucinations The ROS documented in this emergency department record has been reviewed and confirmed by me. Those systems with pertinent positive or negative responses have been documented in the HPI. All other systems are other negative and/or noncontributory. - Related Data Home Medications Medication Instructions Recorded Confirmed buPROPion XL [Wellbutrin XL] 300 mg PO DAILY 11/13/22 01/14/23 carBAMazepine [carBAMazepine ER] 600 mg PO BID 11/13/22 01/14/23 metFORMIN HCL [Glucophage] 500 mg PO BID 11/13/22 01/14/23 Paliperidone IM [Invega Sustenna] 156 mg IM Q30D 01/04/23 01/14/23 Propranolol [Inderal] 10 mg PO BID PRN 01/04/23 01/14/23 traZODone HCL 200 mg PO HS 01/04/23 01/14/23 Allergies Allergy/AdvReac Type Severity Reaction Status Date / Time No Known Allergies Allergy Verified 01/14/23 17:52 Review of Systems ROS Statement: Those systems with pertinent positive or pertinent negative responses have been documented in the HPI. ROS Other: All systems not noted in ROS Statement are negative. Past Medical History Past Medical History: No Reported History Additional Past Medical History / Comment(s): Obesity, obstructive sleep apnea, History of Any Multi-Drug Resistant Organisms: None Reported Past Surgical History: No Surgical Hx Reported Past Anesthesia/Blood Transfusion Reactions: No Reported Reaction Past Psychological History: ADD/ADHD, Bipolar Smoking Status: Former smoker Past Alcohol Use History: None Reported Past Drug Use History: Marijuana General Exam - General Exam Comments Initial Comments: General: Well-appearing, nontoxic, no acute distress. Head: Normocephalic, atraumatic Eyes: PERRLA, EOMI ENT: Airway patent Chest: Nonlabored breathing Skin: No visual rash, normal skin tone Neuro: Alert and oriented 3 Musculoskeletal: No gross abnormalities Psych: Calm, cooperative Medical Decision Making - Medical Decision Making Was pt. sent in by a medical professional or institution (, [facility], FRAMING CONSULTANT, urgent care, hospital, or long term...) When possible be specific @ -[facility] mental health Did you speak to anyone other than the patient for history (EMS, parent, family, police, friend...)? What history was obtained from this source @ -No Did you review nursing and triage notes (agree or disagree)? Why? @ -I reviewed and agree with nursing and triage notes Were old charts reviewed (outside hosp., previous admission, EMS record, old EKG, old radiological studies, urgent care reports/EKG's, long term records)? Report findings @ -No old charts were reviewed Differential Diagnosis (chest pain, altered mental status, abdominal pain women, abdominal pain men, vaginal bleeding, musculoskeletal, weakness, fever, dyspnea, syncope, headache, dizziness, GI bleed, back pain, seizure, CVA, palpatations, mental health)? @ -Differential Mental Health: Depression, anxiety, bipolar, psychosis, schizophrenia, borderline personality, situational depression, adjustment disorder, behavioral disorder, brain tumor, malingering, substance abuse, encephalopathy, medication reaction, dementia, hypothyroidism, degenerative neurologic disorder, lupus.... This is not meant to be all-inclusive list EKG interpreted by me (3pts min.). @ -None done X-rays interpreted by me (1pt min.). @ -None done CT interpreted by me (1pt min.). @ -None done U/S interpreted by me (1pt. min.). @ -None done What testing was considered but not performed or refused? (CT, X-rays, U/S, labs)? Why? @ -None What meds were considered but not given or refused? Why? @ -None Did you discuss the management of the patient with other professionals (professionals i.e. Dr., PA, FRAMING CONSULTANT, lab, RT, psych nurse, social media developer, sign maintenance, teacher, wildlife officer, case packer and sealer)? Give summary @ -discussed with emergency psych service nurse Was smoking cessation discussed for >3mins.? @ -No Was critical care preformed (if so, how long)? @ -No Were there social determinants of health that impacted care today? How? (Homelessness, low income, unemployed, alcoholism, drug addiction, transportation, low edu. Level, literacy, decrease access to med. care, skilled nursing, rehab)? @ -No Was there de-escalation of care discussed even if they declined (Discuss DNR or withdrawal of care, Hospice)? DNR status @ -No What co-morbidities impacted this encounter? (DM, HTN, Smoking, COPD, CAD, Cancer, CVA, ARF, Chemo, Hep., AIDS, mental health diagnosis, sleep apnea, morbid obesity)? @ -None Was patient admitted / discharged? Hospital course, mention meds given and route, prescriptions, significant lab abnormalities, going to OR and other pertinent info. @ -22-year-old male sent in from [facility] was arranged for a outpatient psych bed by [facility]. Patient will be transferred to [facility] Undiagnosed new problem with uncertain prognosis? @ -No Drug Therapy requiring intensive monitoring for toxicity (Heparin, Nitro, Insulin, Cardizem)? @ -No Were any procedures done? @ -No Diagnosis/symptom? Acute, or Chronic, or Acute on Chronic? Uncomplicated (without systemic symptoms) or Complicated (systemic symptoms)? @ -Psychiatric illness Side effects of treatment? @ -No Exacerbation, Progression, or Severe Exacerbation? @ -No Poses a threat to life or bodily function? How? (Chest pain, [place], [place], pneumonia, PE, COPD, DKA, ARF, appy, cholecystitis, CVA, Diverticulitis, Homicidal, Suicidal, threat to staff... and all critical care pts) @ -yes Disposition Clinical Impression: Psychiatric complaint Disposition: TRANSFER TO PSYCH HOSP/UNIT Condition: Fair Referrals: None,Stated [Primary Care Provider] - 1-2 days
[2023-01-14] MEDS ORDERED: ALPRAZolam 1 MG TAB PO STA (17:54)
== END 2023-01-14 21:06 ==
LOC: EC 17:21
DX: F99 Mental disorder, not otherwise specified (principal); F90.9 Attention-deficit hyperactivity disorder, unspecified type; F31.9 Bipolar disorder, unspecified; F12.90 Cannabis use, unspecified, uncomplicated; Z87.891 Personal history of nicotine dependence; Z79.899 Other long term (current) drug therapy
CPT/HCPCS: 99285

== ENCOUNTER → 2023-06-03 | Outpatient (CLI) | payer OTHER ==
--- NOTE | 2023-06-03 14:39 | P.SLEEP ---
History of Present Illness DATE: 06/03/2023 CONSULTATION/NEW PATIENT EVALUATION HISTORY OF PRESENT ILLNESS/SLEEP-WAKE EVALUATION: 22-year-old gentleman had been evaluated in the sleep center for obstructive sleep apnea hypopnea syndrome. Patient has history of extremely severe obstructive sleep apnea hypopnea syndrome diagnosed in 2016. Patient was treated with CPAP but quit treatment to 2 years ago. Since that time she significantly increased his weight on 80 pounds. SLEEP SCHEDULE: Usually sleep schedule from midnight until 10 AM. FALLING ASLEEP: Patient has difficulties with falling asleep, has TV set and bedroom. DURING SLEEP: Patient has loud snoring, awakenings from sleep 5 times with nocturia, episodes of stop breathing during the sleep. No history of hypnogogical hallucinations, sleep paralysis, or cataplexy. DURING THE DAY/WAKE STATE: In the morning patient wake up tired, falling asleep during the day. [place] sleepiness scale is 7. Patient may take up to 2 naps during the day at afternoon time. PAST MEDICAL HISTORY: Bipolar, hypothyroidism, ALLERGIES. PAST SURGICAL HISTORY: Left foot surgery in 2002. MEDICATIONS: Wellbutrin 300 mg once a day, Clozaril, carbamazepine, Cogentin. SOCIAL HISTORY: Positive for smoking in the past for about 2 pack years, alcohol consumption occasional. FAMILY HISTORY: Sleep apnea, cancer, diabetes. REVIEW OF SYSTEMS: Loud snoring, multiple awakenings from sleep, sleepiness during the day. No fevers. No double vision. No recent chest pain. No shortness of breath. No abdominal pain. No bleeding episodes. No blood in urine. No seizure episodes. PHYSICAL EXAMINATION: GENERAL: A pleasant patient without any distress. VITAL SIGNS: BP 130/83, HR 114, RR 20, weight 445 pounds, height 5 foot 7-1/4 inches, body mass index 69.2. HEENT: PERRLA, EOMI. Evaluation of oropharynx showed tongue protrudes midline, low position of soft palate Mallampati 4 NECK: Supple. No JVD. Thyroid is not palpable. 22-1/4 inches in circumference. LUNGS: Clear to percussion and to auscultation. Good air exchange. No wheezing or rhonchi. HEART: S1, S2 regular. No murmurs, gallops or rubs. ABDOMEN: Soft and nontender. Bowel sounds are present. No organomegaly appreciated. EXTREMITIES: No clubbing or cyanosis. TRADING MANAGER: Awake, alert, and oriented x3. Cranial nerves 2 to 7 intact. There is no fasciculation or atrophy noted. No focal deficits observed. ASSESSMENT: 1. Loud snoring, episodes of stop breathing during the sleep, extremely low position of soft palate Mallampati 4, extremely wide neck. History of obstructive sleep apnea hypopnea syndrome in severe range before, obstructive sleep apnea hypopnea syndrome. 2. Morbid obesity, BMI 69.2. 3. Bipolar disorder type I. 4. History of Hypothyroidism. 5 history of ALLERGY. 6 . Status post left foot surgery. PLAN: 1. Polysomnography for evaluation of patient's breathing during sleep and the present time. 2. CPAP/BiPAP titration. 3. Preferable position during sleep on the side. 4. No driving if patient feels any sleepiness. Patient is aware of civil and criminal liability for unsafe driving. 5. Sleep hygiene with regular sleep time for at least 7.5-8 hours. 6. Watching and aggressive losing weight. Thank you very much for referring this patient for consultation. Sincerely, uAgust Duval MD, PhD, FAASM. Diplomat of [place] Board [employer], Sleep Medicine Board by [place] [employer] Special[employer] [place] Board of [employer] Medicine Block Splitter Operator of [facility] [place] Past Medical History Past Medical History: No Reported History Additional Past Medical History / Comment(s): Obesity, obstructive sleep apnea, History of Any Multi-Drug Resistant Organisms: None Reported Past Surgical History: No Surgical Hx Reported Past Anesthesia/Blood Transfusion Reactions: No Reported Reaction Past Psychological History: ADD/ADHD, Bipolar Smoking Status: Former smoker Past Alcohol Use History: None Reported Past Drug Use History: Marijuana Medications and Allergies Home Medications Medication Instructions Recorded Confirmed Type buPROPion XL [Wellbutrin XL] 300 mg PO DAILY 11/13/22 01/14/23 History carBAMazepine [carBAMazepine ER] 600 mg PO BID 11/13/22 01/14/23 History metFORMIN HCL [Glucophage] 500 mg PO BID 11/13/22 01/14/23 History Paliperidone IM [Invega Sustenna] 156 mg IM Q30D 01/04/23 01/14/23 History Propranolol [Inderal] 10 mg PO BID PRN 01/04/23 01/14/23 History traZODone HCL 200 mg PO HS 01/04/23 01/14/23 History Allergies Allergy/AdvReac Type Severity Reaction Status Date / Time No Known Allergies Allergy Verified 01/14/23 17:52 Sleep Note - Sleep Note Sleep Note: Temperature: Pulse Rate: Respiratory Rate: Blood Pressure: SpO2: Height: Weight: BMI: Neck Circumference:
== END ==
LOC: 3 N SLEEP 14:01
PROVIDERS: ATTEND Internal Medicine
DX: G47.33 Obstructive sleep apnea (adult) (pediatric) (principal); E66.01 Morbid (severe) obesity due to excess calories; F31.9 Bipolar disorder, unspecified; Z98.890 Other specified postprocedural states; Z68.44 Body mass index [BMI] 60.0-69.9, adult; Z87.891 Personal history of nicotine dependence
CPT/HCPCS: 99211

== ENCOUNTER 2023-07-06 19:46 | Outpatient (CLI) | payer OTHER ==
--- NOTE | 2023-07-14 11:04 | P.PCN ---
Description of Procedure: POLYSOMNOGRAPHY REPORT PROCEDURE(S)/DATE(S): Polysomnography 07/06/2023 CLINICAL: Patient has been seen in the sleep center for evaluation of obstructive sleep apnea-hypopnea syndrome. Please see my consultation. Sleep study has been done for evaluation of patient breathing during the sleep. PROCEDURE: The standard montage for clinical polysomnography included the electroencephalogram, the electrooculogram, the mentalis surface electromyography and Lead II cardiography. The respiratory battery consisted of measurements of nasal/buccal air flow, pressure transducer measurements from nose, thoracic and/or abdominal effort and intercostal surface electromyography. Video monitoring has been done to check for any parasomnia events. Nocturnal oxyhemoglobin saturations were obtained by finger oximetry. Step-florian titration with positive airway pressure was utilized to control the respiratory events, if necessary. RESULTS: During the diagnostic sleep study sleep efficiency was in high range 96.9 %. Latency to sleep onset was short 5.0 min. Sleep architecture showed st age NI was absent 0 %, Delta sleep was normal 12.2 %, REM sleep was extremely short 3.0 %. Respiratory channel showed 82 obstructive apneas, 5 mixed apneas, 0 central apneas, 796 hypopneas with lowest oxygen level 53 %. Total apnea hypopnea index was 117.7. Heart rate was in the range between 78 and 102, average 88. EMG showed 0 periodic limb movements per hour with 0 micro-arousals per hour. IMPRESSIONS: 1. Extremely severe obstructive sleep apnea hypopnea syndrome with extremely severe oxygen desaturation. 2. No significant periodic limb movements have been documented. Please see other impressions from consultation PLAN: 1. The patient will have PAP titration for correction of respiratory abnormalities during the sleep. 2. Losing weight program. 3. Sleep hygiene with regular time in bed for at least 7-1/2 hours. 4. No driving if feeling sleepiness. Thank you very much for allowing me to participate in the management of your patient. Sincerely, August Duval MD, PhD, FAASM. Diplomat of [place] Board of Sleep Medicine, Sleep Medicine Board by [place] Board of Internal Medicine Station Agent of [facility] [place]
== END 2023-07-07 08:00 | disposition home or self-care (01) ==
LOC: 3 N SLEEP 19:46
PROVIDERS: ATTEND Internal Medicine
DX: G47.33 Obstructive sleep apnea (adult) (pediatric) (principal); G47.36 Sleep related hypoventilation in conditions classified elsewhere
CPT/HCPCS: 95810

== ENCOUNTER 2023-07-13 19:50 | Outpatient (CLI) | payer OTHER ==
--- NOTE | 2023-07-14 11:13 | P.PCN ---
Description of Procedure: CLINICAL: Titration with positive air pressure has been done for correction of respiratory abnormalities during sleep. DESCRIPTION OF PROCEDURE: The standard montage for clinical polysomnography included the electroencephalogram, the electrocardiogram, the mentalis surface electromyography and Lead II cardiography. The respiratory battery consisted of measurements of nasal /buccal air flow, pressure transducer measurements from the nose, thoracic and /or abdominal effort and intercostal surface electromyography. Video monitoring has been done to check for any parasomnia events. Nocturnal oxyhemoglobin saturations were obtained by finger oximetry. Step-florian titration with positive airway pressure was utilized to control respiratory events. Raw data of sleep recording has been reviewed and is adequate. RESULTS: Sleep efficiency was high 96.4 %. Latency to sleep onset was normal 10.5 minutes.]. Sleep architecture showed stage N1 was short 3.2 %, Delta sleep was short 3.5 %, REM sleep was normal 26.7 %. Heart rate was minimum 83 BPM, maximum 98 BPM, average 91 BPM. EMG showed 3.2 periodic limb movements per hour with 0 micriarousals per hour. PAP titration have been done with CPAP up to the pressure 15 cm H2O. Patient had problems with CPAP, switched to BPAP. BPAP titrated up to 23/19 cm H2O. The best results were at the pressure 22/18 cm H2O. Apnea hypopnea index reduced to 0.81. IMPRESSION: 1. Obstructive sleep apnea hypopnea syndrome on controle with BPAP treatment. 2. No significant periodic limb movements have been documented. Please see other impressions from consultation. PLAN: 1. The patient will have treatment with positive air pressure equipment with the level of pressure AutoBPAP maximal inspiratory pressure 23, minimal expiratory pressure 12, pressure-support 4 cm H2O and should use it every night for the whole night. 2. Watching and losing weight. 3. Sleep hygiene with regular time in bed for at least 8 hours. 4. No driving if feeling any sleepiness. 5. I will see the patient for follow up visit to explain the results of the test, recommendations, check compliance with treatment and make any necessary adjustment related to mask fitting, pressure and humidification. Thank you very much for allowing me to participate in the management of your patient. Sincerely, August Duval MD, PhD, FAASM Diplomat of [employer] [employer] Sleep Medicine Board of [place] Board of Internal Medicine Mortgage Counselor of [facility] [place]
== END 2023-07-14 08:20 | disposition home or self-care (01) ==
LOC: 3 N SLEEP 19:50
PROVIDERS: ATTEND Internal Medicine
DX: G47.33 Obstructive sleep apnea (adult) (pediatric) (principal)
CPT/HCPCS: 95811

== ENCOUNTER → 2023-11-17 | Outpatient (CLI) | payer OTHER ==
[2023-11-17 16:27] VITALS: BP 170/102; PULSE 136; RESP 18; TEMP 98
--- NOTE | 2023-11-17 16:35 | P.PN ---
Subjective DATE: 11/17/2023 FOLLOW UP VISIT. Patient with obstructive sleep apnea hypopnea syndrome return to sleep center for follow-up visit. Recently patient had sleep study which documented obstructive sleep apnea hypopnea syndrome. Patient was initiated on PAP therapy and today is first visit after treatment was started. Patient was able to use BPAP equipment every night for the whole night. The patient does not have significant problems with the mask, PAP pressure and humidification. [place] sleepiness scale is 5, which is normal. I checked information from BPAP unit. BPAP unit pressure maximal inspiratory pressure 23, minimal expiratory pressure 12, pressure support 4, average pressure 19.3/15.4 cm H2O. Usage is 12.1 hours per night, but this BiPAP unit patient has only for 2 nights. Leak is increased to 42 l/m. Apnea Hypopnea Index is 0.4, which is normal. MEDICATIONS:1. Wellbutrin 300 mg once a day 2. Clozaril 3. Carbamazepine 4. Cogentin During physical exam: GENERAL: A pleasant patient without any distress. VITAL SIGNS: Please see below. HEENT: PERRLA, EOMI.low position of soft palate, Mallapati 4 . NECK: Supple. No JVD. LUNGS: Clear to percussion and to auscultation. Good air exchange. No wheezing or rhonchi. HEART: S1, S2 regular. ABDOMEN: Soft and nontender. Obese EXTREMITIES: No clubbing or cyanosis. PRODUCTION SUPERVISOR TRAINEE: Awake, alert, and oriented x3. No focal deficit. Impressions: 1. Obstructive sleep apnea-hypopnea syndrome. Patient benefiting from treatment, but present machine patient has only for 2 nights. Patient had another BiPAP unit for about 3 months, but I do not have information from that unit. 2. Morbid obesity. 3. Bipolar disorder type I. 4. History of hypothyroidism. 5. History of allergy. 6. Status post left foot surgery. Plan: 1. Continue using BPAP equipment every night for the whole night. 2. To change air filter at least 1-2 times per month. 3. PAP unit should stay lower then position of the head. 4. Advised patient to remove all remaining water from humidifier canister daily and make it dry after each usage. Refill canister with fresh distilled water before each usage. 5. Sleep hygiene with regular time in bed for at least 8 hours. 6. Precautions related to driving. No driving if feel any sleepiness. 7. I will maintain prescription for PAP supplies including mask, tube, filters. 8. Follow up visit in 1 months or earlier if patient has any problems. 9. Watching and losing weight. Thank you very much for allowing me to participate in the management of your patient. August Duval MD, PhD, FAASM. Diplomat of [place] Board of Sleep Medicine, Sleep Medicine Board by [place] [employer] of Internal Medicine Well Head Pumper of [facility] [place] Objective - Vital Signs Vital signs: Vital Signs Temp 98 F 11/17/23 15:59 Pulse 136 H 11/17/23 15:59 Resp 18 11/17/23 15:59 BP 170/102 11/17/23 15:59 Pulse Ox 94 L 11/17/23 15:59 FiO2 Intake & Output 11/16/23 11/17/23 11/17/23 18:59 06:59 18:59 Weight 215.003 kg
== END ==
LOC: 3 N SLEEP 15:46
PROVIDERS: ATTEND Internal Medicine
DX: G47.33 Obstructive sleep apnea (adult) (pediatric) (principal); E66.01 Morbid (severe) obesity due to excess calories; F31.9 Bipolar disorder, unspecified; Z86.39 Personal history of other endocrine, nutritional and metabolic disease; Z99.89 Dependence on other enabling machines and devices; Z91.09 Other allergy status, other than to drugs and biological substances; Z68.45 Body mass index [BMI] 70 or greater, adult
CPT/HCPCS: 99212

== ENCOUNTER → 2023-12-29 | Outpatient (CLI) | payer MEDICARE, OTHER ==
[2023-12-29 17:01] VITALS: BP 169/104; PULSE 129; RESP 22; TEMP 98.3
--- NOTE | 2023-12-29 17:16 | P.PROGSL ---
Subjective DATE: 12/29/2023 FOLLOW UP VISIT. Patient with obstructive sleep apnea hypopnea syndrome return to sleep center for follow-up visit. Information from previous visit have been reviewed. Patient is using PAP equipment every night for the whole night, getting PAP supplies in time. The patient does not have significant problems with the mask, PAP unit and humidification. [place] sleepiness scale is 6, which is normal. I checked information from PAP unit. PAP unit pressure maximal inspiratory pressure 23, minimal expiratory pressure 12, pressure support 4, average pressure 14.8/10.8 cm H2O. Usage is 97% for more then 4 hours, average 9.5 hours per night. Leak is significantly increased to 55.5, patient has to change mask to new one. Apnea Hypopnea Index is 0.3, which is normal. MEDICATIONS: Please see below During physical exam: GENERAL: A pleasant patient without any distress. VITAL SIGNS: Please see below, weight 474.6 pounds. HEENT: PERRLA, EOMI.low position of soft palate, Mallapati 4 . NECK: Supple. No JVD. LUNGS: Clear to percussion and to auscultation. Good air exchange. No wheezing or rhonchi. HEART: S1, S2 regular. ABDOMEN: Soft and nontender. Obese EXTREMITIES: No clubbing or cyanosis. BORDER MEASURER: Awake, alert, and oriented x3. No focal deficit. Impressions: 1. Obstructive sleep apnea-hypopnea syndrome. Patient demonstrated great compliance with treatment, benefiting from treatment. 2. Obesity, morbid. 3. Bipolar, type I. 4. History of hypothyroidism. 5. History of allergy. 6. Status post left foot surgery. Plan: 1. Continue using PAP equipment every night for the whole night. 2. To change air filter at least 1-2 times per month. 3. PAP unit should stay lower then position of the head. 4. Advised patient to remove all remaining water from humidifier canister daily and make it dry after each usage. Refill canister with fresh distilled water before each usage. 5. Sleep hygiene with regular time in bed for at least 8 hours. 6. Precautions related to driving. No driving if feel any sleepiness. 7. I will maintain prescription for PAP supplies including mask, tube, filters. 8. Watching and losing weight. 9. Follow up visit in 6 months or earlier if patient has any problems. Thank you very much for allowing me to participate in the management of your patient. August Duval MD, PhD, FAASM. Diplomat of [place] Board of Sleep Medicine, Sleep Medicine Board by [place] [employer] Internal Medicine Edger Machine Setter of [facility] [place] Objective - Vital Signs Vital Signs: Vital Signs Temp 98.3 F 12/29/23 16:46 Pulse 129 H 12/29/23 16:46 Resp 22 12/29/23 16:46 BP 169/104 12/29/23 16:46 Pulse Ox 95 12/29/23 16:46 FiO2 Intake & Output 12/28/23 12/29/23 12/29/23 18:59 06:59 18:59 Weight 215.173 kg Home Medications: Home Medications Medication Instructions Recorded Confirmed Type buPROPion XL [Wellbutrin XL] 300 mg PO DAILY 11/13/22 12/29/23 History carBAMazepine [carBAMazepine ER] 600 mg PO BID 11/13/22 12/29/23 History Propranolol [Inderal] 10 mg PO BID PRN 01/04/23 11/17/23 History cloZAPine [Clozaril] 50 mg PO BID 11/17/23 12/29/23 History
== END | disposition home or self-care (01) ==
LOC: 3 N SLEEP 16:29
PROVIDERS: ATTEND Internal Medicine
DX: G47.33 Obstructive sleep apnea (adult) (pediatric) (principal); E66.01 Morbid (severe) obesity due to excess calories; F31.9 Bipolar disorder, unspecified; E03.9 Hypothyroidism, unspecified; Z98.890 Other specified postprocedural states; Z99.89 Dependence on other enabling machines and devices
CPT/HCPCS: 99212

== ENCOUNTER → 2024-06-29 | Outpatient (CLI) | payer MEDICARE, OTHER ==
[2024-06-29 17:12] VITALS: BP 150/98; PULSE 112; RESP 16; TEMP 67
--- NOTE | 2024-06-29 17:55 | P.PROGSL ---
Subjective DATE: 06/29/2024 FOLLOW UP VISIT. Patient with obstructive sleep apnea hypopnea syndrome return to sleep center for follow-up visit. Information from previous visit have been reviewed. Patient is using PAP equipment every night for the whole night, getting PAP supplies in time. The patient does not have significant problems with the mask, PAP unit and humidification. [place] sleepiness scale is 3, which is normal. I checked information from PAP unit. PAP unit pressure maximal inspiratory pressure 23, minimal expiratory pressure 12, pressure support 4, average pressure 19/15 cm H2O. Usage is 100% for more then 4 hours, average 9.5 hours per night. Leak is 7 l/m, which is in acceptable range. Apnea Hypopnea Index is 0.6, which is normal. MEDICATIONS have been reviewed, please see below. During physical exam: GENERAL: A pleasant patient without any distress. VITAL SIGNS: Please see below, weight is 169 lbs. HEENT: PERRLA, EOMI.low position of soft palate, Mallapati 4 . NECK: Supple. No JVD. LUNGS: Clear to percussion and to auscultation. Good air exchange. No wheezing or rhonchi. HEART: S1, S2 regular. ABDOMEN: Soft and nontender. Obese EXTREMITIES: No clubbing or cyanosis. SURGICAL AIDE: Awake, alert, and oriented x3. No focal deficit. Impressions: 1. Obstructive sleep apnea-hypopnea syndrome. Patient demonstrated great compliance with treatment, benefiting from treatment. 2. Obesity, patient lost 5 pounds comparing with the previous visit, BMI 73.4. 3. Bipolar type I. 4. History of allergy. 5. History of hypothyroidism. 6. Status post left foot surgery. Plan: 1. Continue using PAP equipment every night for the whole night. 2. Sleep hygiene with regular time in bed for at least 7.5-8 hours 3. PAP unit should stay lower then position of the head. 4. Advised patient to remove all remaining water from humidifier canister daily and make it dry after each usage. Refill canister with fresh distilled water before each usage. 5. Watching and aggressive losing weight. 6. Precautions related to driving. No driving if feel any sleepiness. 7. I will maintain prescription for PAP supplies including mask, tube, filters. 8. Follow up visit in 8 months or earlier if patient has any problems. Thank you very much for allowing me to participate in the management of your patient. August Duval MD, PhD, FAASM. Diplomat of [place] [employer], Sleep Medicine Board by [employer] [facility] [place] Objective - Vital Signs Vital Signs: Vital Signs Temp 67 F L 06/29/24 17:11 Pulse 112 H 06/29/24 17:11 Resp 16 06/29/24 17:11 BP 150/98 06/29/24 17:11 Pulse Ox 95 06/29/24 17:11 FiO2 Intake & Output 06/28/24 06/29/24 06/29/24 18:59 06:59 18:59 Weight 212.735 kg Home Medications: Home Medications Medication Instructions Recorded Confirmed Type buPROPion XL [Wellbutrin XL] 300 mg PO DAILY 11/13/22 06/29/24 History carBAMazepine [carBAMazepine ER] 600 mg PO BID 11/13/22 06/29/24 History Propranolol [Inderal] 10 mg PO BID PRN 01/04/23 11/17/23 History cloZAPine [Clozaril] 50 mg PO BID 11/17/23 06/29/24 History Semaglutide [Wegovy] 1.7 mg SQ WEEKLY 06/29/24 06/29/24 History
== END ==
LOC: 3 N SLEEP 15:57
PROVIDERS: ATTEND Internal Medicine
DX: G47.33 Obstructive sleep apnea (adult) (pediatric) (principal); E66.9 Obesity, unspecified; F31.9 Bipolar disorder, unspecified; E03.9 Hypothyroidism, unspecified; Z98.890 Other specified postprocedural states; Z99.89 Dependence on other enabling machines and devices; Z68.45 Body mass index [BMI] 70 or greater, adult; Z86.39 Personal history of other endocrine, nutritional and metabolic disease; Z91.09 Other allergy status, other than to drugs and biological substances
CPT/HCPCS: 99212

== ENCOUNTER → 2024-12-27 | Outpatient (CLI) | payer MEDICARE, OTHER ==
[2024-12-27 12:35] LABS: Partial Thromboplastin Time 22.5 sec (22.0-30.0); Prothrombin Time 10.8 sec (10.0-12.5)
[2024-12-27 13:58] LABS: HCT 42.4 % (39.6-50.0); HGB 13.9 g/dL (13.0-17.0); MCH 28.8 pg (27.0-32.0); MCHC 32.8 g/dL (32.0-37.0); MCV 87.8 fL (80.0-97.0); Mean Platelet Volume 10.1 fL (9.5-12.2); Platelet Count 224 10*3/uL (140-440); RBC 4.83 10*6/uL (4.40-5.60); RDW 14.8 % (11.5-14.5); WBC 6.31 10*3/uL (4.50-10.00)
[2024-12-27 15:33] LABS: % Iron Saturation 33.33 (15.00-50.00); ALT 57 U/L (10-49); AST 41 U/L (14-35); Albumin 4.3 g/dL (3.8-4.9); Albumin/Globulin Ratio 1.54 Ratio (1.60-3.17); Alkaline Phosphatase 86 U/L (41-126); BUN/Creat Ratio 19.17 Ratio (12.00-20.00); Blood Urea Nitrogen 11.5 mg/dL (9.0-27.0); Calcium 9.1 mg/dL (8.7-10.3); Carbon Dioxide 22.4 mmol/L (21.6-31.8); Chloride 105 mmol/L (96-109); Chol/HDL Ratio 4.91 Ratio; Globulin 2.8 g/dL (1.6-3.3); Glucose 108 mg/dL (70-110); Iron 127 UG/DL (65-175); LDL Cholesterol,Calculated 119.7 mg/dL (0.0-131.0); Magnesium 2.3 mg/dL (1.5-2.4); Phosphorus 2.6 mg/dL (2.4-5.1); Potassium 4.2 mmol/L (3.5-5.5); Sodium 140 mmol/L (135-145); Total Bilirubin 0.4 mg/dL (0.3-1.2); Total Iron Binding Capacity 381 UG/DL (228-460); Total Protein 7.1 g/dL (6.2-8.2)
[2024-12-27 16:01] LABS: Prealbumin 25.2 mg/dL (18.0-42.0)
[2024-12-28 15:31] LABS: Zinc, Serum 132 ug/dL (60-130)
[2024-12-29 06:11] LABS: Vitamin A 53 ug/dL (38-106)
[2024-12-29 10:52] LABS: Vit B1(Thiamine) 64 ug/L (38-122)
== END | disposition home or self-care (01) ==
LOC: LABWHC1 11:19
PROVIDERS: ATTEND Surgery Plastic and Reconstructive Surgery
DX: E55.9 Vitamin D deficiency, unspecified (principal); E89.1 Postprocedural hypoinsulinemia; E44.1 Mild protein-calorie malnutrition; D50.9 Iron deficiency anemia, unspecified; K76.9 Liver disease, unspecified; T56.894A Toxic effect of other metals, undetermined, initial encounter
CPT/HCPCS: 36415; 80053; 80061; 82306; 82525; 82607; 82728; 82746; 83036; 83540; 83550; 83735; 83970; 84100; 84134; 84255; 84425; 84443; 84590; 84630; 85027; 85610; 85730

== ENCOUNTER 2025-01-22 06:58 | Day surgery (SDC) | payer MEDICARE, OTHER ==
[2025-01-18 12:02] VITALS: BMI 73.0
[2025-01-22] MEDS ORDERED: LIDOCAINE 1% (10MG/ML) FOR IV START INTRADERMA PRN (07:21)
[2025-01-22 07:27] VITALS: TEMP 97
[2025-01-22] MEDS: IV FLUID CONTINUATION 1,000 ML IV ONE (07:31)
[2025-01-22] MEDS: LACTATED RINGERS 1,000 ML IV SCH (07:31)
[2025-01-22 07:34] LABS: Glucose,Whole Blood 113 mg/dL (70-110)
[2025-01-22] MEDS ORDERED: LIDOCAINE 1% INJ 10MG/ML (20 ML MDV) ONE (07:34)
[2025-01-22] MEDS ORDERED: KETAMINE HCL IN 0.9 % NACL 50 MG/5 ML SYRINGE ONE (07:34)
[2025-01-22] MEDS ORDERED: MIDAZOLAM 2 MG/2 ML VIAL ONE (07:34)
[2025-01-22] MEDS ORDERED: PROPOFOL 10 MG/ML 20 ML VIAL IV ONE (07:34)
--- NOTE | 2025-01-22 07:39 | P.GSHP ---
History of Present Illness H&P Date: 01/22/25 CHIEF COMPLAINT: GERD and dysphagia HISTORY OF PRESENT ILLNESS: The patient is a 24-year-old male who presents reports gastroesophageal reflux disease and dysphagia. Upper endoscopy was offered for further evaluation and management. PAST MEDICAL HISTORY: Please see list. PAST SURGICAL HISTORY: Please see list. MEDICATIONS: Please see list. ALLERGIES: Please see list. SOCIAL HISTORY: No illicit drug use FAMILY HISTORY: No reports of Crohn disease or ulcerative colitis. REVIEW OF ORGAN SYSTEMS: CONSTITUTIONAL: No reports of fevers or chills. GI: Denies any blood in stools or constipation. PHYSICAL EXAM: VITAL SIGNS: Stable GENERAL: Well-developed and pleasant in no acute distress. HEENT: No scleral icterus. Extraocular movements grossly intact. Moist buccal mucosa. NECK: Supple without lymphadenopathy. CHEST: Unlabored respirations. Equal bilateral excursions. CARDIOVASCULAR: Regular rate and rhythm. Distal 2+ pulses. ABDOMEN: Soft, nondistended. MUSCULOSKELETAL: No clubbing, cyanosis, or edema. ASSESSMENT: 1. Gastroesophageal reflux disease 2. Dysphagia PLAN: 1. Recommend proceeding with an upper endoscopy Past Medical History Past Medical History: Sleep Apnea/CPAP/BIPAP Additional Past Medical History / Comment(s): Obesity, obstructive sleep apnea- current Cpap use. Pre-diabetes?-takes metformin bid. History of Any Multi-Drug Resistant Organisms: None Reported Past Surgical History: Orthopedic Surgery Additional Past Surgical History / Comment(s): orthopedic surgery left heel at the age of 3 Past Anesthesia/Blood Transfusion Reactions: No Reported Reaction Additional Past Anesthesia/Blood Transfusion Reaction / Comment(s): No hx of blood transfusion Smoking Status: Never smoker - Past Family History Father Family Medical History: Diabetes Mellitus Medications and Allergies Home Medications Medication Instructions Recorded Confirmed Type buPROPion XL [Wellbutrin XL] 400 mg PO DAILY 11/13/22 01/22/25 History carBAMazepine [carBAMazepine ER] 300 mg PO BID 11/13/22 01/22/25 History cloZAPine [Clozaril] 100 mg PO DAILY 11/17/23 01/22/25 History Multivitamins, Thera [Multivitamin 1 tab PO DAILY 01/18/25 01/22/25 History (formulary)] Ziprasidone [Geodon] 20 mg PO DAILY 01/18/25 01/22/25 History metFORMIN HCL 500 mg PO BID 01/18/25 01/22/25 History Allergies Allergy/AdvReac Type Severity Reaction Status Date / Time No Known Allergies Allergy Verified 01/22/25 07:22 Surgical - Exam Vital Signs Temp Pulse Resp BP Pulse Ox 97 F L 106 H 20 139/92 97 01/22/25 07:20 01/22/25 07:20 01/22/25 07:20 01/22/25 07:20 01/22/25 07:20 Results - Labs Abnormal Lab Results - Last 24 Hours (Table) 01/22/25 Range/Units 07:28 POC Glucose (mg/dL) 113 H (70-110) mg/dL
[2025-01-22] MEDS: LACTATED RINGERS 1,000 ML IV ONE (07:52)
--- NOTE | 2025-01-22 07:53 | P.PCN ---
Date of Procedure: 01/22/25 Description of Procedure: PREOPERATIVE DIAGNOSIS: Gastroesophageal reflux disease. Morbid obesity. Dysphagia POSTOPERATIVE DIAGNOSIS: Gastroesophageal reflux disease. Morbid obesity. Gastritis. OPERATION: Esophagogastroduodenoscopy with cold forceps biopsies along esophagus, antrum and duodenum SURGEON: Parul Skaggs MD ANESTHESIA: MAC. INDICATIONS: The patient is a 24-year-old female who presents with dysphagia and reflux disease. Benefits and risks of the procedure were described. Informed consent was obtained. DESCRIPTION: The patient was brought into the endoscopy suite and laid in the left lateral decubitus position. An Olympus gastroscope was passed along the posterior oropharynx down to the distal esophagus where the squamocolumnar junction was encountered at 40 cm from the incisors. The stomach was entered and no bile reflux was found. Additional findings are listed below. Biopsies with cold forceps were obtained of the antrum. The first through third portion of the duodenum was examined. Retroflexion of the scope confirmed Hill grade 2 lower esophageal valve. The squamocolumnar junction demonstrated LA grade B erosive esophagitis. The stomach was desufflated. The patient tolerated the procedure well. FINDINGS: Squamocolumnar junction 40 cm from the incisors. Diaphragmatic hiatus at 40 cm. Hill grade 2 lower esophageal valve. LA grade B erosive esophagitis. Biopsies obtained Biopsies obtained of the duodenum. Chronic gastritis with biopsies obtained. RECOMMENDATIONS: Omeprazole 40 mg daily for 2 weeks Plan - Discharge Summary Discharge Rx Participant: No New Discharge Prescriptions: New Omeprazole [PriLOSEC] 40 mg PO DAILY #14 cap Continue carBAMazepine [carBAMazepine ER] 300 mg PO BID cloZAPine [Clozaril] 100 mg PO DAILY metFORMIN HCL 500 mg PO BID Multivitamins, Thera [Multivitamin (formulary)] 1 tab PO DAILY buPROPion XL [Wellbutrin XL] 400 mg PO DAILY Ziprasidone [Geodon] 20 mg PO DAILY Discharge Medication List buPROPion XL [Wellbutrin XL] 400 mg PO DAILY 11/13/22 [History] carBAMazepine [carBAMazepine ER] 300 mg PO BID 11/13/22 [History] cloZAPine [Clozaril] 100 mg PO DAILY 11/17/23 [History] Multivitamins, Thera [Multivitamin (formulary)] 1 tab PO DAILY 01/18/25 [History] Ziprasidone [Geodon] 20 mg PO DAILY 01/18/25 [History] metFORMIN HCL 500 mg PO BID 01/18/25 [History] Omeprazole [PriLOSEC] 40 mg PO DAILY #14 cap 01/22/25 [Rx] Follow up [facility]ment(s[facility]Ref[facility] [place] [facility] - [facility]/31/25 3:00 pm Patient Instructions/Handouts: Gastritis (DC), Diet for Stomach Ulcers and Gastritis (ED) Discharge Disposition: HOME SELF-CARE
[2025-01-22 08:13] VITALS: BP 124/61; PULSE 96; RESP 18
== END 2025-01-22 08:38 | disposition home or self-care (01) ==
LOC: ORWHC2ENDO 06:58 → EEVIPCON 06:58 → ORWHC2ENDO 08:38
PROVIDERS: ATTEND Surgery Plastic and Reconstructive Surgery
DX: K21.00 Gastro-esophageal reflux disease with esophagitis, without bleeding (principal); K22.10 Ulcer of esophagus without bleeding; K29.50 Unspecified chronic gastritis without bleeding; K22.89 Other specified disease of esophagus; K44.9 Diaphragmatic hernia without obstruction or gangrene; E66.01 Morbid (severe) obesity due to excess calories; G47.33 Obstructive sleep apnea (adult) (pediatric); F31.9 Bipolar disorder, unspecified; E11.9 Type 2 diabetes mellitus without complications; Z79.899 Other long term (current) drug therapy; Z79.84 Long term (current) use of oral hypoglycemic drugs; Z98.890 Other specified postprocedural states
CPT/HCPCS: 88305; 88312; 43239; J2250; J2003; J2704

== ENCOUNTER → 2025-01-31 | Outpatient (CLI) | payer MEDICARE, OTHER ==
[2025-01-31 16:00] VITALS: BP 147/92; PULSE 105; RESP 16; TEMP 98.1
--- NOTE | 2025-01-31 16:37 | P.BASOAP ---
Subjective Progress Note Date: 01/31/25 He has therapist. Looking into sleeve. Then labs reviewed. Eating too much sodium. Gained 10 pounds in 3 weeks. Geodon and meds for psych. Needs accountablity. Labs reviewed. Low vitamin D. Lose 25 pounds to lose. Cut back on sodium. Get down 473. Has CPAP machine. Objective - Vital Signs Vital signs: Vital Signs Temp 98.1 F 01/31/25 15:55 Pulse 105 H 01/31/25 15:55 Resp 16 01/31/25 15:55 BP 147/92 01/31/25 15:55 Pulse Ox FiO2 Intake & Output 01/30/25 01/31/25 01/31/25 18:59 06:59 18:59 Weight 225.889 kg Assessment/Plan Plan: Date: 01/31/25 Initial Weight: 221.41 kg Initial BMI: Current Weight: 225.889 kg Current BMI: Type of Surgery: Total Volume in Band: Previous Volume: Volume Removed: Volume Added: Band Size:
== END ==
LOC: BARWHC3 14:58
PROVIDERS: ATTEND Surgery Plastic and Reconstructive Surgery
DX: E66.01 Morbid (severe) obesity due to excess calories (principal); F12.90 Cannabis use, unspecified, uncomplicated; Z68.45 Body mass index [BMI] 70 or greater, adult
CPT/HCPCS: 99211

== ENCOUNTER → 2025-02-05 | Outpatient (CLI) | payer MEDICARE, OTHER ==
[2025-02-06 08:56] VITALS: BMI 75.9
== END ==
LOC: BARWHC3 13:07
PROVIDERS: ATTEND Surgery Plastic and Reconstructive Surgery
DX: E66.01 Morbid (severe) obesity due to excess calories (principal); F12.90 Cannabis use, unspecified, uncomplicated; Z71.3 Dietary counseling and surveillance
CPT/HCPCS: 97804

== ENCOUNTER → 2025-03-15 | Outpatient (CLI) | payer MEDICARE, OTHER ==
[2025-03-15 16:31] VITALS: BP 149/97; PULSE 112; RESP 18; TEMP 98.2
--- NOTE | 2025-03-15 16:41 | P.PROGSL ---
Subjective DATE: 03/15/2025 FOLLOW UP VISIT. Patient with obstructive sleep apnea hypopnea syndrome return to sleep center for follow-up visit. Information from previous visit have been reviewed. Patient is using PAP equipment every night for the whole night, getting PAP supplies in time. The patient does not have significant problems with the mask, PAP unit and humidification. [place] sleepiness scale is 3, which is normal. I checked information from PAP unit. PAP unit pressure maximal inspiratory pressure 23, minimal expiratory pressure 12, pressure support 4, average pressure 20.3/16.3 cm H2O. Usage is 100% for more then 4 hours, average 9.3 hours per night. Leak is significantly increased to 60 l/m. Apnea Hypopnea Index is 1.6, which is normal. MEDICATIONS have been reviewed, please see below. During physical exam: GENERAL: A pleasant patient without any distress. VITAL SIGNS: Please see below, weight is 506 lbs. HEENT: PERRLA, EOMI.low position of soft palate, Mallapati 4 . NECK: Supple. No JVD. LUNGS: Clear to percussion and to auscultation. Good air exchange. No wheezing or rhonchi. HEART: S1, S2 regular. ABDOMEN: Soft and nontender. Obese EXTREMITIES: No clubbing or cyanosis. 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 No focal deficit. Impressions: 1. Obstructive sleep apnea-hypopnea syndrome. Patient demonstrated great compliance with treatment, benefiting from treatment. 2. Obesity, BMI 79.2. 3. Bipolar type I. 4. History of allergy. 5. Status post left foot surgery. 6. History of hypothyroidism. Plan: 1. Continue using PAP equipment every night for the whole night. 2. Sleep hygiene with regular time in bed for at least 7.5-8 hours 3. PAP unit should stay lower then position of the head. 4. Advised patient to remove all remaining water from humidifier canister daily and make it dry after each usage. Refill canister with fresh distilled water before each usage. 5. Watching and losing weight. Patient is planning to have bariatric surgery in about 1 months. 6. Precautions related to driving. No driving if feel any sleepiness. 7. I will maintain prescription for PAP supplies including mask, tube, filters. 8. Follow up visit in 6 months or earlier if patient has any problems. Thank you very much for allowing me to participate in the management of your patient. August Duval MD, PhD, FAASM. Diplomat of [place] [employer], Sleep Medicine Board by [place] [employer] [facility] [place] Objective - Vital Signs Vital Signs: Vital Signs Temp 98.2 F 03/15/25 16:30 Pulse 112 H 03/15/25 16:30 Resp 18 03/15/25 16:30 BP 149/97 03/15/25 16:30 Pulse Ox 94 L 03/15/25 16:30 FiO2 Intake & Output 03/14/25 03/15/25 03/15/25 18:59 06:59 18:59 Weight 229.518 kg Home Medications: Home Medications Medication Instructions Recorded Confirmed Type buPROPion XL [Wellbutrin XL] 400 mg PO DAILY 11/13/22 03/15/25 History carBAMazepine [carBAMazepine ER] 300 mg PO BID 11/13/22 01/31/25 History cloZAPine [Clozaril] 100 mg PO DAILY 11/17/23 03/15/25 History Multivitamins, Thera [Multivitamin 1 tab PO DAILY 01/18/25 03/15/25 History (formulary)] Ziprasidone [Geodon] 20 mg PO DAILY 01/18/25 03/15/25 History metFORMIN HCL 500 mg PO BID 01/18/25 03/15/25 History Ergocalciferol [Vitamin D2 (1250 1,250 mcg PO WEEKLY #20 cap 01/22/25 01/31/25 Rx Mcg = [id number] Iu)] Omeprazole [PriLOSEC] 40 mg PO DAILY #14 cap 01/22/25 01/31/25 Rx carBAMazepine [TEGretol] 200 mg PO BID 03/15/25 03/15/25 History
== END | disposition home or self-care (01) ==
LOC: 3 N SLEEP 16:10
PROVIDERS: ATTEND Internal Medicine
DX: G47.33 Obstructive sleep apnea (adult) (pediatric) (principal); E66.9 Obesity, unspecified; F31.9 Bipolar disorder, unspecified; F12.90 Cannabis use, unspecified, uncomplicated; Z68.45 Body mass index [BMI] 70 or greater, adult; Z88.8 Allergy status to other drugs, medicaments and biological substances; Z98.890 Other specified postprocedural states; Z86.39 Personal history of other endocrine, nutritional and metabolic disease; Z99.89 Dependence on other enabling machines and devices
CPT/HCPCS: 99212